=== PATIENT | female | born 1970 | race Caucasian/White ===

== ENCOUNTER → 2017-06-25 | Outpatient (CLI) | payer MEDICARE, OTHER ==
[~2017-06-25] MED LIST: ACET-461 PO; ARIP5TAB13 PO; ARPZ10T; ARPZ10T PO; ASPI-86 PO; CARV6.25; CATHETER FLUSH 10 ML SYR IV PRN; DIPH25TA82 PO; HYDR-3583 PO; IBUP-1773 PO; IOHEXOL 350 MG/ML 100 ML (OMNIPAQUE 350) VIAL IV ONE; LEVO500T69 PO; METR500T PO; MTP25TSR PO; NS 100 ML (IVPB) BAG IV ONE; PROP1TAB77; TRAZ150T42 PO; TRZ50T; VENL75CA PO; VNL75T PO
--- NOTE | 2017-06-25 14:18 | Diagnostic Imaging Report ---
PROCEDURE: CT abdomen and pelvis with contrast. TECHNIQUE: Multiple contiguous axial images were obtained through the abdomen and pelvis after administration of intravenous contrast. INDICATION: Diarrhea. COMPARISON: Comparison made with prior examination from 06/20/2010. FINDINGS: The lung bases are clear. Pacemaker is in place. The liver is normal in size and without focal lesions. Gallbladder is contracted. There is cholelithiasis. There is no biliary ductal dilatation. The spleen is normal. The pancreas and adrenal glands are unremarkable. The kidneys are normal in appearance. The abdominal aorta is nonaneurysmal. The bowel gas pattern is nonspecific. There is no free air. There are postsurgical changes in the left pelvis. There is moderate distention of the bladder. There is no free air. There is no ascites. There are no focal inflammatory changes. IMPRESSION: 1. Contracted gallbladder with cholelithiasis. 2. Moderate distention of the bladder. 3. No other acute abnormality in the abdomen or pelvis. Dictated by: Dictated on workstation # [id number]
== END ==
LOC: RAD 13:20
PROVIDERS: ATTEND Family Medicine
DX: K80.20 Calculus of gallbladder without cholecystitis without obstruction (principal); N32.89 Other specified disorders of bladder
CPT/HCPCS: 74177

== ENCOUNTER 2017-12-10 09:51 | Emergency (ER) | payer MEDICARE, OTHER ==
[~2017-12-10] VITALS: Ht 167.6 cm; Wt 72.6 kg
[~2017-12-10 09:51] MED LIST changes: -CATHETER FLUSH 10 ML SYR IV PRN; -IOHEXOL 350 MG/ML 100 ML (OMNIPAQUE 350) VIAL IV ONE; -NS 100 ML (IVPB) BAG IV ONE
[2017-12-10] MEDS ORDERED: KETOROLAC 30 MG/ML VIAL IM ONE (10:15)
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
--- NOTE | 2017-12-10 11:27 | Diagnostic Imaging Report ---
INDICATION: Fall. Pain. COMPARISON: 06/24/2010 FINDINGS: 2 views of the chest are obtained. Heart size is normal. The pulmonary vessels appear unremarkable. Pacer/AICD device in the left chest is noted and appears unremarkable. There is no pneumothorax, mediastinal widening or pleural fluid. There is minimal linear scarring or atelectasis in the lateral left lung base. Lungs otherwise clear. There appear to be multiple nondisplaced rib fractures involving the lateral right fifth, sixth and possibly seventh ribs. IMPRESSION: Multiple nondisplaced right rib fractures. No acute cardiopulmonary abnormality is suspected. Dictated by: Dictated on workstation # [id number]
[2017-12-10] MEDS ORDERED: ACHD5005 PO (11:59)
[2017-12-10 12:46] VITALS: BP 118/70
== END 2017-12-10 12:46 | disposition home or self-care (01) ==
LOC: EDUNIT# 09:51 → ER 09:53
DX: S22.41XA Multiple fractures of ribs, right side, initial encounter for closed fracture (principal); R40.2142 Coma scale, eyes open, spontaneous, at arrival to emergency department; R40.2252 Coma scale, best verbal response, oriented, at arrival to emergency department; R40.2362 Coma scale, best motor response, obeys commands, at arrival to emergency department; F17.210 Nicotine dependence, cigarettes, uncomplicated; Z88.2 Allergy status to sulfonamides; W01.198A Fall on same level from slipping, tripping and stumbling with subsequent striking against other object, initial encounter
CPT/HCPCS: 71046; 96372; 99284

== ENCOUNTER → 2017-12-31 | Outpatient (CLI) | payer MEDICARE, OTHER ==
[~2017-12-31] MED LIST changes: +ACHD5005 PO
== END ==
LOC: CARD 11:55
PROVIDERS: ATTEND Internal Medicine Cardiovascular Disease
DX: I42.9 Cardiomyopathy, unspecified (principal); Z95.810 Presence of automatic (implantable) cardiac defibrillator
CPT/HCPCS: 93306

== ENCOUNTER 2019-04-21 01:00 | Inpatient (IN) | payer MEDICARE, OTHER ==
[2019-04-21] VITALS (7 sets, daily range): BP systolic 103–130; BP diastolic 57–78
[~2019-04-21] VITALS: Ht 177.8 cm; Wt 65.8 kg
[2019-04-21] MEDS ORDERED: LACTATED RINGERS 1,000 ML IV STA (01:18)
[2019-04-21 01:20] LABS: BASOPHILS % (AUTO) 0 % (0-10); EOSINOPHILS % (AUTO) 0 % (0-10); HEMATOCRIT 43 % (35-52); HEMOGLOBIN 13.8 G/DL (11.5-16.0); LYMPHOCYTES # (AUTO) 0.5 X 10^3 (1.0-4.0); LYMPHOCYTES % (AUTO) 4 % (12-44); MEAN CORPUSCULAR HEMOGLOBIN 29 PG (25-34); MEAN CORPUSCULAR HGB CONC 32 G/DL (32-36); MEAN CORPUSCULAR VOLUME 90 FL (80-99); MEAN PLATELET VOLUME 7.9 FL (7.4-10.4); MONOCYTES # (AUTO) 0.6 X 10^3 (0.0-1.0); MONOCYTES % (AUTO) 4 % (0-12); NEUTROPHILS # (AUTO) 13.1 X 10^3 (1.8-7.8); NEUTROPHILS % (AUTO) 92 % (42-75); PLATELET COUNT 498 10^3/uL (130-400); WHITE BLOOD COUNT 14.2 10^3/uL (4.3-11.0)
[2019-04-21] MEDS ORDERED: ONDANSETRON 4 MG/2 ML (SDV) Z0FRAN IVP ONE (01:30)
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
[2019-04-21 01:40] LABS: ALANINE AMINOTRANSFERASE 15 U/L (0-55); ALKALINE PHOSPHATASE 172 U/L (40-136); AMYLASE 53 U/L (25-125); BAND NEUTROPHILS 21 %; BILIRUBIN,TOTAL 0.2 MG/DL (0.1-1.0); BUN/CREATININE RATIO 18; CALCIUM 10.5 MG/DL (8.5-10.1); CARBON DIOXIDE 25 MMOL/L (21-32); CHLORIDE 97 MMOL/L (98-107); CREATININE SERUM 0.84 MG/DL (0.60-1.30); GFR ESTIMATED > 60; GLUCOSE 158 MG/DL (70-105); LIPASE 32 U/L (8-78); LYMPHOCYTES % (MANUAL) 3 %; MAGNESIUM 1.8 MG/DL (1.6-2.4); MONOCYTES % (MANUAL) 5 %; NEUTROPHILS % (MANUAL) 71 %; POTASSIUM 3.6 MMOL/L (3.6-5.0); RBC MORPH NORMAL; SODIUM 139 MMOL/L (135-145); TOTAL PROTEIN 9.3 GM/DL (6.4-8.2)
[2019-04-21 02:32] LABS: BILIRUBIN,URINE NEGATIVE (NEGATIVE); CLARITY,URINE CLEAR; COLOR,URINE YELLOW; GLUCOSE, URINE (UA) NEGATIVE (NEGATIVE); KETONES,URINE NEGATIVE (NEGATIVE); LEUKOCYTE ESTERASE ,URINE NEGATIVE (NEGATIVE); NITRITE,URINE NEGATIVE (NEGATIVE); PH,URINE 5 (5-9); PROTEIN,URINE 2+ (NEGATIVE); UROBILINOGEN,URINE NORMAL (NORMAL)
[2019-04-21 02:41] LABS: BACTERIA,URINE FEW /HPF
[2019-04-21 02:43] LABS: AMPHETAMINE SCREEN, URINE NEGATIVE (NEGATIVE); BARBITURATE SCREEN URINE NEGATIVE (NEGATIVE); BENZODIAZEPINES SCREEN URINE NEGATIVE (NEGATIVE); CANNABINOID SCREEN, URINE NEGATIVE (NEGATIVE); COCAINE SCREEN URINE NEGATIVE (NEGATIVE); METHADONE STAT NEGATIVE (NEGATIVE); METHAMPHETAMINE SCREEN URINE S NEGATIVE (NEGATIVE); OPIATE SCREEN URINE NEGATIVE (NEGATIVE); OXYCODONE STAT NEGATIVE (NEGATIVE); PROPOXYPHENE STAT NEGATIVE (NEGATIVE); TRICYCLIC ANTIDEPRESSANTS SCRE POSITIVE (NEGATIVE)
[2019-04-21] MEDS ORDERED: D5 1/2 NS W/KCL 20 MEQ/L 1,000 ML IV ONE (04:34)
[2019-04-21] MEDS ORDERED: ONDANSETRON 4 MG/2 ML (SDV) Z0FRAN IV PRN (04:45)
[2019-04-21] MEDS: D5 1/2 NS W/KCL 20 MEQ/L 1,000 ML IV SCH ×3 (05:00→18:32)
--- NOTE | 2019-04-21 05:13 | NUR ---
LAURY PRABHAKAR admitted to room 418-1, with an admitting diagnosis of SMALL BOWEL OBSTRUCTION, CHOLELITHIASIS, on 04/21/19 from [place] via [facility], accompanied by STAFF AND SIGNIFICANT OTHER.LAURY PRABHAKAR introduced to surroundings, call light, bed controls, phone, TV, temperature control, lights, meal times, smoking policy, visitor policy, side rail policy, bathrooms and showers. Patient Rights given to patient in the handbook. LAURY PRABHAKAR verbalizes understanding that [facility] is not responsible for the loss or damage to any personal effects or valuables that are kept in the patients posession during their hospitalization
[2019-04-21 06:36] LABS: BASOPHILS % (AUTO) 0 % (0-10); EOSINOPHILS # (AUTO) 0.1 10^3/uL (0.0-0.3); EOSINOPHILS % (AUTO) 1 % (0-10); HEMATOCRIT 36 % (35-52); HEMOGLOBIN 11.8 G/DL (11.5-16.0); LYMPHOCYTES # (AUTO) 0.3 X 10^3 (1.0-4.0); LYMPHOCYTES % (AUTO) 3 % (12-44); MEAN CORPUSCULAR HEMOGLOBIN 29 PG (25-34); MEAN CORPUSCULAR HGB CONC 33 G/DL (32-36); MEAN CORPUSCULAR VOLUME 90 FL (80-99); MEAN PLATELET VOLUME 8.2 FL (7.4-10.4); MONOCYTES % (AUTO) 8 % (0-12); NEUTROPHILS # (AUTO) 11.9 X 10^3 (1.8-7.8); NEUTROPHILS % (AUTO) 89 % (42-75); PLATELET COUNT 410 10^3/uL (130-400); RED CELL DISTRIBUTION WIDTH 14.1 % (10.0-14.5); WHITE BLOOD COUNT 13.3 10^3/uL (4.3-11.0)
[2019-04-21 06:58] LABS: ALANINE AMINOTRANSFERASE 13 U/L (0-55); ALKALINE PHOSPHATASE 117 U/L (40-136); BILIRUBIN,TOTAL 0.2 MG/DL (0.1-1.0); BUN/CREATININE RATIO 19; CARBON DIOXIDE 24 MMOL/L (21-32); CHLORIDE 102 MMOL/L (98-107); CREATININE SERUM 0.72 MG/DL (0.60-1.30); GFR ESTIMATED > 60; GLUCOSE 161 MG/DL (70-105); POTASSIUM 3.8 MMOL/L (3.6-5.0); SODIUM 139 MMOL/L (135-145); TOTAL PROTEIN 7.1 GM/DL (6.4-8.2)
--- NOTE | 2019-04-21 07:08 | Diagnostic Imaging Report ---
PROCEDURE: CT abdomen and pelvis with contrast. TECHNIQUE: Multiple contiguous axial images were obtained through the abdomen and pelvis after administration of intravenous contrast. Auto Exposure Controls were utilized during the CT exam to meet ALARA standards for radiation dose reduction. INDICATION: Abdominal pain. Compared 06/25/2017. FINDINGS: There is abnormal fluid-filled dilatation of the proximal third of the small bowel with scattered air-fluid levels. Small-bowel caliber is distended up to 3.7 cm with mid abdominal transition. No etiology of the obstruction found. There is no evidence for perforation. No pneumatosis. There is fluid within the colonic lumen. Colon is nondistended. There is formed stool at the rectosigmoid. There is trace pelvic free fluid without loculation. There is no pneumatosis or free air. There are gallstones without biliary dilatation. Spleen, adrenals, pancreas unremarkable. The unobstructed kidneys appeared normal. There are postoperative changes to the left hemipelvis with subacute but unhealed fractures of the left inferior and superior rami. Spine unremarkable. The visualized lung bases nonacute. IMPRESSION: 1. Etiology indeterminate small bowel obstruction, transition in the mid abdomen without perforation. Small pelvic free fluid without loculation. 2. Postsurgical left hemipelvis with subacute but unhealed left superior and inferior pubic rami fractures. 3. Cholelithiasis without biliary dilatation. Dictated by: Dictated on workstation # [id number]
--- NOTE | 2019-04-21 07:08 | Diagnostic Imaging Report ---
INDICATION: OG placement FINDINGS: OG catheter tip is in the stomach. ICD unremarkable. The lungs clear. No failure, effusion or pneumothorax. IMPRESSION: OG catheter placed in the stomach Dictated by: Dictated on workstation # [id number]
--- NOTE | 2019-04-21 07:26 | Diagnostic Imaging Report ---
Indication: Shortness of air. Study compared with exam 12/10/2017. The lungs are clear. The heart size and vascularity normal. There is no effusion or pneumothorax. Abdominal radiograph showed postoperative changes to the left hemipelvis with the subacute unhealed fractures of the left superior and inferior ramus. There are some air-fluid levels within distended mid abdominal small bowel. No free gas. Impression: Small bowel dilatation and air-fluid levels, obstruction not excluded. Postoperative left pelvis with treated and untreated fractures appearing nonacute. Negative chest. Dictated by: Dictated on workstation # [id number]
[2019-04-21] MEDS: PANTOPRAZOLE 40 MG (PROTONIX) VIAL IV SCH (08:52)
[2019-04-21] MEDS ORDERED: VENL75CA93 PO (09:08)
[2019-04-21] MEDS ORDERED: METO-387 PO (09:08)
[2019-04-21] MEDS ORDERED: ACET-93 PO (09:08)
[2019-04-21] MEDS ORDERED: IBUP-2055 PO (09:08)
[2019-04-21] MEDS ORDERED: ARIP5TAB20 PO (09:08)
[2019-04-21] MEDS ORDERED: TRAZ150T72 PO (09:08)
--- NOTE | 2019-04-21 09:09 | NUR ---
SPOKE WITH PT (HER FAMILY WAS IN THE ROOM AND HELPS TAKE CARE OF HER MEDS) WELL GOING THRU THE EXT MED HIST TO COMPLETE THE MED REC. FAMILY WAS ABLE TO VERIFY ALL HER MEDS WELL HOW SHE TAKES THEM. LORATADINE 10MG: FAMILY SAYS PT IS NO LONGER TAKING THIS EVEN THOUGH THE EXT MED HISTORY SHOWS IT HAS BEEN PICKED UP OVER THE LAST FEW MONTHS. OTC MEDS: ACETAMINOPHEN 500M Q 6 H PRN IBUPROFEN 200M TABS Q 6 H PRN
--- NOTE | 2019-04-21 12:55 | NUR ---
Initial visit with the pt's Aunt, Uncle and significant other of 20+ years, . The pt's Aunt and Uncle describe themselves as primary care givers throughout the pt's life. They shared she also struggles with schizophrenia and describe difficulty finding steady employment. They further shared that they live in [place], and have experienced increased limitations due to health and aging. They have recently reached out to their daughter to help provided emotional and physical support to the pt, and state they are grateful for the assistance and understanding their daughter provides. said he was feeling nervous about the pt's condition. I offered active listening, and supportive, non-judgmental presence. Family states the pt has no spiritual affiliation.
[2019-04-21] MEDS: fentaNYL INJECTION 100 MCG/2 ML AMP IV PRN (14:55)
[2019-04-21] MEDS: LORazepam INJ 2 MG/ML (ATIVAN) VIAL IV PRN (14:55)
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
[2019-04-21] MEDS: POLYETHYLENE GLYCOL 17 GM (MIRALAX) PACK NG SCH (20:55)
[2019-04-22] MEDS: fentaNYL INJECTION 100 MCG/2 ML AMP IV PRN ×4 (01:17→21:43)
[2019-04-22] MEDS: D5 1/2 NS W/KCL 20 MEQ/L 1,000 ML IV SCH ×3 (01:20→16:30)
[2019-04-22] MEDS: LORazepam INJ 2 MG/ML (ATIVAN) VIAL IV PRN ×2 (03:42→18:05)
[2019-04-22 04:25] VITALS: BP 155/88
[2019-04-22 06:52] LABS: HEMOGLOBIN 10.6 G/DL (11.5-16.0); MEAN PLATELET VOLUME 7.9 FL (7.4-10.4); RED CELL DISTRIBUTION WIDTH 14.5 % (10.0-14.5); WHITE BLOOD COUNT 10.6 10^3/uL (4.3-11.0)
[2019-04-22 06:59] LABS: BUN/CREATININE RATIO 8; CALCIUM 8.4 MG/DL (8.5-10.1); CARBON DIOXIDE 24 MMOL/L (21-32); CHLORIDE 104 MMOL/L (98-107); CREATININE SERUM 0.62 MG/DL (0.60-1.30); GFR ESTIMATED > 60; GLUCOSE 122 MG/DL (70-105); POTASSIUM 3.9 MMOL/L (3.6-5.0); SODIUM 136 MMOL/L (135-145)
[2019-04-22 07:54] VITALS: BP 169/91
[2019-04-22] MEDS: PANTOPRAZOLE 40 MG (PROTONIX) VIAL IV SCH (09:38)
[2019-04-22] MEDS: meTOprolol 5 MG/5 ML (LOPRESSOR) VIAL IV SCH ×3 (09:39→21:42)
[2019-04-22] MEDS ORDERED: IOHEXOL 350 MG/ML 100 ML (OMNIPAQUE 350) VIAL IV ONE (10:30)
[2019-04-22] MEDS ORDERED: NS 100 ML (IVPB) BAG IV ONE (10:30)
[2019-04-22] MEDS ORDERED: HOLD METFORMIN - RECEIVED CONTRAST 20 ML VIAL IV SCH (10:30)
[2019-04-22 11:56] VITALS: BP 162/83
[2019-04-22] MEDS ORDERED: meTOprolol 5 MG/5 ML (LOPRESSOR) VIAL IV NR (12:30)
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
--- NOTE | 2019-04-22 14:55 | Diagnostic Imaging Report ---
INDICATION: Bowel obstruction. COMPARISON: 04/21/2019. FINDINGS: Single frontal radiographic view of the abdomen was obtained and demonstrates nondistended loops of small bowel. There is no large collection of free intraperitoneal air. Postsurgical changes in the left pelvis is noted. Old fractures are also present. No unexpected extraosseous ossifications or radiopaque foreign bodies are seen. IMPRESSION: 1. Nonobstructive small bowel gas pattern. Dictated by: Dictated on workstation # [id number]
[2019-04-22 16:41] VITALS: BP 148/91
--- NOTE | 2019-04-22 17:52 | Progress Note ---
Subjective Date Seen by a Provider: Apr 22, 2019 Time Seen by a Provider: 17:30 Subjective/Events-last exam Patient seen with Dr. Wilcox. Patient reports doing ok. Denies any nausea or abdominal pain. Reports passing flatus but no BM. No fever/chills. Objective Exam Vital Signs Date Time Temp Pulse Resp B/P (MAP) Pulse Ox O2 Delivery O2 Flow Rate FiO2 04/22/19 16:41 37.0 82 16 148/91 (110) 94 Room Air 04/22/19 11:56 37.1 87 16 162/83 (109) 96 Room Air 04/22/19 08:00 Room Air 04/22/19 07:54 37.0 93 14 169/91 (117) 98 Room Air 04/22/19 04:25 36.6 82 18 155/88 (110) 96 Room Air 04/21/19 23:57 36.7 96 18 130/78 (95) 94 Room Air 04/21/19 20:00 Room Air 04/21/19 19:58 37.2 92 20 124/77 (93) 93 Room Air I & O 04/22/19 07:00 Intake Total 1000 ml Output Total 1265 ml Balance -265 ml Capillary Refill : Less Than 3 Seconds General Appearance: No Apparent Distress, WD/WN Neck: Normal Inspection, Supple Respiratory: Normal Breath Sounds, No Accessory Muscle Use, No Respiratory Distress Cardiovascular: Regular Rate, Rhythm, No Murmur Gastrointestinal: normal bowel sounds, non tender, soft Extremity: Normal Capillary Refill, Normal Inspection Neurologic/Psychiatric: Alert, Oriented x3 Skin: Normal Color, Warm/Dry Results Lab Laboratory Tests 04/22/19 06:28: White Blood Count 10.6, Red Blood Count 3.67L, Hemoglobin 10.6L, Hematocrit 34L, Mean Corpuscular Volume 92, Mean Corpuscular Hemoglobin 29, Mean Corpuscular Hemoglobin Concent 31L, Red Cell Distribution Width 14.5, Platelet Count 393, Mean Platelet Volume 7.9, Sodium Level 136, Potassium Level 3.9, Chloride Level 104, Carbon Dioxide Level 24, Anion Gap 8, Blood Urea Nitrogen 5L, Creatinine 0.62, Estimat Glomerular Filtration Rate > 60, BUN/Creatinine Ratio 8, Glucose Level 122H, Calcium Level 8.4L Assessment/Plan Assessment/Plan Assess & Plan/Chief Complaint A 48-year-old female with ileus versus a partial small-bowel obstruction, and chronic calculous cholecystitis. Continue with IV fluids, pain and nausea medications. Will DC NG. Start clear liquid diet. Encourage ambulation Schedule for diagnostic laparoscopy, possible lysis of adhesions, and laparoscopic cholecystectomy for 04/24. Clinical Quality Measures DVT/VTE Risk/Contraindication: Risk Factor Score Per Nursin RFS Level Per Nursing on Admit: 4+=Very High LINDA GAYTAN [facility] Apr 22, 2019 17:52
[2019-04-22 19:45] VITALS: BP 146/82
[2019-04-22] MEDS: POLYETHYLENE GLYCOL 17 GM (MIRALAX) PACK NG SCH (21:44)
[2019-04-23 00:38] VITALS: BP 157/83
[2019-04-23 04:12] VITALS: BP 149/81
[2019-04-23] MEDS: LORazepam INJ 2 MG/ML (ATIVAN) VIAL IV PRN ×2 (04:45→18:00)
[2019-04-23] MEDS: meTOprolol 5 MG/5 ML (LOPRESSOR) VIAL IV SCH (04:48)
[2019-04-23] MEDS: D5 1/2 NS W/KCL 20 MEQ/L 1,000 ML IV SCH ×3 (05:00→21:09)
[2019-04-23 06:54] LABS: BASOPHILS % (AUTO) 0 % (0-10); EOSINOPHILS # (AUTO) 0.1 10^3/uL (0.0-0.3); EOSINOPHILS % (AUTO) 1 % (0-10); HEMATOCRIT 31 % (35-52); HEMOGLOBIN 9.9 G/DL (11.5-16.0); LYMPHOCYTES # (AUTO) 1.7 X 10^3 (1.0-4.0); LYMPHOCYTES % (AUTO) 17 % (12-44); MEAN CORPUSCULAR HEMOGLOBIN 29 PG (25-34); MEAN CORPUSCULAR HGB CONC 32 G/DL (32-36); MEAN CORPUSCULAR VOLUME 91 FL (80-99); MEAN PLATELET VOLUME 8.2 FL (7.4-10.4); MONOCYTES # (AUTO) 0.9 X 10^3 (0.0-1.0); MONOCYTES % (AUTO) 9 % (0-12); NEUTROPHILS # (AUTO) 7.4 X 10^3 (1.8-7.8); NEUTROPHILS % (AUTO) 73 % (42-75); PLATELET COUNT 377 10^3/uL (130-400); RED CELL DISTRIBUTION WIDTH 13.8 % (10.0-14.5); WHITE BLOOD COUNT 10.1 10^3/uL (4.3-11.0)
[2019-04-23 07:16] LABS: BUN/CREATININE RATIO 10; CALCIUM 8.8 MG/DL (8.5-10.1); CARBON DIOXIDE 26 MMOL/L (21-32); CHLORIDE 102 MMOL/L (98-107); CREATININE SERUM 0.59 MG/DL (0.60-1.30); GFR ESTIMATED > 60; GLUCOSE 112 MG/DL (70-105); POTASSIUM 3.7 MMOL/L (3.6-5.0); SODIUM 138 MMOL/L (135-145)
--- NOTE | 2019-04-23 07:30 | Progress Note ---
Subjective Time Seen by a Provider: 07:27 Subjective/Events-last exam Patient states she's feeling better. Patient passing gas. Patient taking food and fluids. Patient to have gallbladder out tomorrow. Objective Exam Vital Signs Date Time Temp Pulse Resp B/P (MAP) Pulse Ox O2 Delivery O2 Flow Rate FiO2 04/23/19 04:12 37.2 88 20 149/81 (103) 95 Room Air 04/23/19 00:38 37.2 87 24 157/83 (107) 97 Room Air 04/22/19 20:00 Room Air 04/22/19 19:45 37.0 77 16 146/82 (103) 95 Room Air 04/22/19 16:41 37.0 82 16 148/91 (110) 94 Room Air 04/22/19 11:56 37.1 87 16 162/83 (109) 96 Room Air 04/22/19 08:00 Room Air 04/22/19 07:54 37.0 93 14 169/91 (117) 98 Room Air I & O 04/23/19 07:00 Intake Total 100 ml Output Total 2550 ml Balance -2450 ml Capillary Refill : Less Than 3 Seconds General Appearance: No Apparent Distress, WD/WN HEENT: Normal ENT Inspection Neck: Full Range of Motion, Normal Inspection Respiratory: Lungs Clear, Normal Breath Sounds, No Accessory Muscle Use, No Respiratory Distress Cardiovascular: Regular Rate, Rhythm, No Murmur Gastrointestinal: normal bowel sounds, non tender, soft Results Lab Laboratory Tests 04/23/19 06:07 Laboratory Tests 04/23/19 06:07: White Blood Count 10.1, Red Blood Count 3.46L, Hemoglobin 9.9L, Hematocrit 31L, Mean Corpuscular Volume 91, Mean Corpuscular Hemoglobin 29, Mean Corpuscular Hemoglobin Concent 32, Red Cell Distribution Width 13.8, Platelet Count 377, Mean Platelet Volume 8.2, Neutrophils (%) (Auto) 73, Lymphocytes (%) (Auto) 17, Monocytes (%) (Auto) 9, Eosinophils (%) (Auto) 1, Basophils (%) (Auto) 0, Berto trophils # (Auto) 7.4, Lymphocytes # (Auto) 1.7, Monocytes # (Auto) 0.9, Eosinophils # (Auto) 0.1, Basophils # (Auto) 0.0, Sodium Level 138, Potassium Level 3.7, Chloride Level 102, Carbon Dioxide Level 26, Anion Gap 10, Blood Urea Nitrogen 6L, Creatinine 0.59L, Estimat Glomerular Filtration Rate > 60, BUN/Creatinine Ratio 10, Glucose Level 112H, Calcium Level 8.8 Assessment/Plan Assessment/Plan Assess & Plan/Chief Complaint Partial small bowel obstruction better. Cholelithiasis. Hypertension. MR. Patient doing better and have surgery tomorrow Clinical Quality Measures DVT/VTE Risk/Contraindication: Risk Factor Score Per Nursin RFS Level Per Nursing on Admit: 4+=Very High BARBARA JANE DO Apr 23, 2019 07:30
[2019-04-23 08:00] VITALS: BP 135/85
[2019-04-23] MEDS: PANTOPRAZOLE 40 MG (PROTONIX) VIAL IV SCH (09:44)
--- NOTE | 2019-04-23 11:13 | Diagnostic Imaging Report ---
INDICATION: Abdominal pain. TECHNIQUE: 2 supine view of the abdomen 9:34 AM CORRELATION STUDY: 04/22/2019 FINDINGS: The tip of the previously identified gastric tube is not visualized on current study. There is gas within the colon including gas and stool to the rectum. Definitive disproportionate small bowel gas to suggest a high degree obstruction does not appear to be suggested. Mild leftward curvature and/or rotation lumbar spine. Extensive external fixation hardware over the left hemipelvis with additional ununited fractures of the left superior-inferior pubic rami. Single screw over the intertrochanteric region of the proximal left femur. IMPRESSION: 1. Unremarkable, nonobstructive appearing bowel gas pattern. Dictated by: Dictated on workstation # [id number]
--- NOTE | 2019-04-23 11:52 | NUR ---
YOSEF ECHAVARRIA CALLED AND THIS RN GOT VERBAL CONSENT WITH YENIFER BACON FOR GALLBLADDER SURG-- THIS RN ALSO ASKED HER ABOUT ANY REACTION TO ANESTHESIA - SHE VOICED YES SHE IS VERY NAUSEATED AND AT TIMES VOMITS -- THIS RN ADVISED ANESTHESIA OF THIS
[2019-04-23 12:00] VITALS: BP 149/68
--- NOTE | 2019-04-23 12:45 | Progress Note-Pre Operative ---
Pre-Operative Progress Note H&P Reviewed The H&P was reviewed, patient examined and no changes noted. Date Seen by Provider: Apr 23, 2019 Time Seen by Provider: 12:40 Date H&P Reviewed: Apr 23, 2019 Time H&P Reviewed: 12:40 Pre-Operative Diagnosis: nausea/vomiting with previous PSBO and calculous cholecystitis DALILA NERGO MD Apr 23, 2019 12:45
--- NOTE | 2019-04-23 13:10 | NUR ---
THIS RN CALLED PT'S AUNT AND LEFT MESSAGE FOR TIME OF SURG TOMORROW -- 1200 --
[2019-04-23] MEDS ORDERED: ZOLPIDEM 5 MG (AMBIEN) TAB PO PRN (14:15)
--- NOTE | 2019-04-23 14:28 | Progress Note ---
Subjective Date Seen by a Provider: Apr 23, 2019 Time Seen by a Provider: 14:00 Subjective/Events-last exam doing better. tolerating clears. no nausea/vomiting. has had BM on this admission. Objective Exam Vital Signs Date Time Temp Pulse Resp B/P (MAP) Pulse Ox O2 Delivery O2 Flow Rate FiO2 04/23/19 12:00 36.0 81 20 149/68 (95) 93 Room Air 04/23/19 08:00 36.7 89 20 135/85 (102) 96 Room Air 04/23/19 08:00 Room Air 04/23/19 04:12 37.2 88 20 149/81 (103) 95 Room Air 04/23/19 00:38 37.2 87 24 157/83 (107) 97 Room Air 04/22/19 20:00 Room Air 04/22/19 19:45 37.0 77 16 146/82 (103) 95 Room Air 04/22/19 16:41 37.0 82 16 148/91 (110) 94 Room Air I & O 04/23/19 07:00 Intake Total 100 ml Output Total 2550 ml Balance -2450 ml Capillary Refill : Less Than 3 Seconds General Appearance: No Apparent Distress HEENT: PERRL/EOMI Neck: Full Range of Motion Respiratory: Chest Non Tender, Lungs Clear, Normal Breath Sounds Cardiovascular: Regular Rate, Rhythm Gastrointestinal: soft, tenderness, other (no abd distention) Extremity: Normal Capillary Refill Neurologic/Psychiatric: Alert, Oriented x3 Skin: Normal Color Lymphatic: No Adenopathy Results Lab Laboratory Tests 04/23/19 06:07: White Blood Count 10.1, Red Blood Count 3.46L, Hemoglobin 9.9L, Hematocrit 31L, Mean Corpuscular Volume 91, Mean Corpuscular Hemoglobin 29, Mean Corpuscular Hemoglobin Concent 32, Red Cell Distribution Width 13.8, Platelet Count 377, Mean Platelet Volume 8.2, Neutrophils (%) (Auto) 73, Lymphocytes (%) (Auto) 17, Monocytes (%) (Auto) 9, Eosinophils (%) (Auto) 1, Basophils (%) (Auto) 0, Neutrophils # (Auto) 7.4, Lymphocytes # (Auto) 1.7, Monocytes # (Auto) 0.9, Eosinophils # (Auto) 0.1, Basophils # (Auto) 0.0, Sodium Level 138, Potassium Level 3.7, Chloride Level 102, Carbon Dioxide Level 26, Anion Gap 10, Blood Urea Nitrogen 6L, Creatinine 0.59L, Estimat Glomerular Filtration Rate > 60, BUN/Creatinine Ratio 10, Glucose Level 112H, Calcium Level 8.8 Assessment/Plan Assessment/Plan Assess & Plan/Chief Complaint PSBO and symptomatic chronic calculous cholecystitis. resolution PSBO. nausea/vomiting likely multifactorial. will plan for diagnostic laparoscopy, possible RUIZ and cholecystectomy. Clinical Quality Measures DVT/VTE Risk/Contraindication: Risk Factor Score Per Nursin RFS Level Per Nursing on Admit: 4+=Very High DALILA NEGRO MD Apr 23, 2019 14:28
[2019-04-23] MEDS: fentaNYL INJECTION 100 MCG/2 ML AMP IV PRN ×2 (15:27→21:16)
[2019-04-23 16:50] VITALS: BP 138/76
[2019-04-23 20:40] VITALS: BP 171/80
[2019-04-23] MEDS: VENlafaxine XR 75 MG (EFFEXOR XR) CAP PO SCH (21:10)
[2019-04-23] MEDS: POLYETHYLENE GLYCOL 17 GM (MIRALAX) PACK NG SCH (21:10)
[2019-04-24] VITALS (12 sets, daily range): BP systolic 118–187; BP diastolic 65–99
[2019-04-24] MEDS ORDERED: meTOprolol 5 MG/5 ML (LOPRESSOR) VIAL IV ONE ×2 (00:15→03:30)
[2019-04-24] MEDS: LORazepam INJ 2 MG/ML (ATIVAN) VIAL IV PRN ×4 (01:52→20:37)
[2019-04-24 05:33] LABS: HEMOGLOBIN 10.9 G/DL (11.5-16.0); MEAN PLATELET VOLUME 7.9 FL (7.4-10.4); RED CELL DISTRIBUTION WIDTH 13.6 % (10.0-14.5); WHITE BLOOD COUNT 9.7 10^3/uL (4.3-11.0)
[2019-04-24 06:00] LABS: BUN/CREATININE RATIO 11; CALCIUM 9.3 MG/DL (8.5-10.1); CARBON DIOXIDE 26 MMOL/L (21-32); CHLORIDE 101 MMOL/L (98-107); CREATININE SERUM 0.62 MG/DL (0.60-1.30); GFR ESTIMATED > 60; GLUCOSE 115 MG/DL (70-105); POTASSIUM 3.8 MMOL/L (3.6-5.0); SODIUM 137 MMOL/L (135-145)
--- NOTE | 2019-04-24 07:26 | Progress Note ---
Subjective Time Seen by a Provider: 07:22 Subjective/Events-last exam Patient resting comfortably this morning. Patient to have gallbladder surgery this a.m. Abdomen is soft. Blood pressure better this a.m. Objective Exam Vital Signs Date Time Temp Pulse Resp B/P (MAP) Pulse Ox O2 Delivery O2 Flow Rate FiO2 04/24/19 04:15 36.1 76 20 142/80 (100) 94 Room Air 04/24/19 00:00 36.9 80 20 187/95 (125) 96 Room Air 04/23/19 20:40 37.2 83 18 171/80 (110) 92 Room Air 04/23/19 20:00 Room Air 04/23/19 16:50 37.1 83 18 138/76 (96) 94 Room Air 04/23/19 16:00 36.0 04/23/19 15:27 36.0 04/23/19 12:00 36.0 81 20 149/68 (95) 93 Room Air 04/23/19 08:00 36.7 89 20 135/85 (102) 96 Room Air 04/23/19 08:00 Room Air I & O 04/24/19 07:00 Intake Total 1100 ml Output Total 1600 ml Balance -500 ml Capillary Refill : Less Than 3 Seconds General Appearance: No Apparent Distress, WD/WN HEENT: Normal ENT Inspection Neck: Normal Inspection Respiratory: Lungs Clear, No Accessory Muscle Use, No Respiratory Distress Cardiovascular: Regular Rate, Rhythm, No Murmur Gastrointestinal: non tender, soft Results Lab Laboratory Tests 04/24/19 05:15 Laboratory Tests 04/24/19 05:15: White Blood Count 9.7, Red Blood Count 3.79L, Hemoglobin 10.9L, Hematocrit 34L, Mean Corpuscular Volume 89, Mean Corpuscular Hemoglobin 29, Mean Corpuscular Hemoglobin Concent 32, Red Cell Distribution Width 13.6, Platelet Count 472H, Mean Platelet Volume 7.9, Sodium Level 137, Potassium Level 3.8, Chloride Level 101, Carbon Dioxide Level 26, Anion Gap 10, Blood Urea Nitrogen 7, Creatinine 0.62, Estimat Glomerular Filtration Rate > 60, BUN/Creatinine Ratio 11, Glucose Level 115H, Calcium Level 9.3 Assessment/Plan Assessment/Plan Assess & Plan/Chief Complaint Partial small bowel obstruction better. Cholelithiasis. Hypertension. MR. Patient doing better and have surgery tomorrow. . 04/24/19. Partial small bowel obstruction better. Cholelithiasis. Hypertension. MR. Patient to have gallbladder surgery this a.m. Clinical Quality Measures DVT/VTE Risk/Contraindication: Risk Factor Score Per Nursin RFS Level Per Nursing on Admit: 4+=Very High BARBARA JANE DO Apr 24, 2019 07:26
[2019-04-24] MEDS ORDERED: LACTATED RINGERS 1,000 ML IV PRN (07:47)
[2019-04-24] MEDS: PANTOPRAZOLE 40 MG (PROTONIX) VIAL IV SCH (09:20)
[2019-04-24] MEDS: D5 1/2 NS W/KCL 20 MEQ/L 1,000 ML IV SCH (09:20)
--- NOTE | 2019-04-24 09:24 | NUR ---
metoprolol XL [address] Wilcox for b/p of 176/99 with a pulse of 87
[2019-04-24] MEDS ORDERED: ONDANSETRON 4 MG/2 ML (SDV) Z0FRAN ONE (13:23)
[2019-04-24] MEDS ORDERED: DEXAMETHASONE 10 MG/ML (DECADRON) 1 ML VIAL ONE (13:23)
[2019-04-24] MEDS ORDERED: MIDAZOLAM 2 MG/2 ML (VERSED) VIAL ONE (13:23)
[2019-04-24] MEDS ORDERED: proPOfol 200 MG/20 ML (DIPRIVAN) VIAL IV ONE (13:23)
[2019-04-24] MEDS ORDERED: LIDOCAINE PF 2% 5 ML (XYLOCAINE) VIAL ONE (13:23)
[2019-04-24] MEDS ORDERED: fentaNYL INJECTION 100 MCG/2 ML AMP ONE (13:23)
[2019-04-24] MEDS ORDERED: SEVOFLURANE (ULTANE) 15 ML INHAL SOLN ONE ×5 (13:23→19:06)
[2019-04-24] MEDS ORDERED: GLYCOPYRROLATE 0.2 MG/ML (ROBINUL) 2 ML VIAL ONE (13:25)
[2019-04-24] MEDS ORDERED: NEOSTIGMINE 3 MG/3 ML VIAL ONE (13:25)
[2019-04-24] MEDS ORDERED: BUP/EPI 0.25% 1:200,000 (MARCAINE) 10 ML VIAL IJ ONE (13:42)
[2019-04-24] MEDS ORDERED: morphine INJ 10 MG/ML 1ML (SYR OR VIAL) ONE (15:11)
--- NOTE | 2019-04-24 16:55 | NUR ---
PATIENT TO SURGERY AT THIS TIME, VIA BED. THIS RN WILL ASSUME CARE OF THIS PATIENT WHEN SHE RETURNS FROM HER PROCEDURE.
[2019-04-24] MEDS: LACTATED RINGERS 1,000 ML IV PRN ×2 (17:08→18:24)
--- NOTE | 2019-04-24 17:10 | Progress Note-Pre Operative ---
Pre-Operative Progress Note H&P Reviewed The H&P was reviewed, patient examined and no changes noted. Date Seen by Provider: Apr 24, 2019 Time Seen by Provider: 17:05 Date H&P Reviewed: Apr 24, 2019 Time H&P Reviewed: 17:00 Pre-Operative Diagnosis: nausea/vomiting with previous PSBO and chronic calculous cholecystitis LINDA GAYTAN APRN Apr 24, 2019 17:10
[2019-04-24] MEDS ORDERED: ceFAZolin INJECTION 1,000 MG ONE (17:13)
[2019-04-24] MEDS ORDERED: ceFAZolin INJECTION 1,000 MG in WATER (STERILE) FOR INJECTION 10 ML IV ONE (17:30)
[2019-04-24] MEDS ORDERED: morphine INJ 10 MG/ML 1ML (SYR OR VIAL) IVP ONE (19:00)
[2019-04-24] MEDS ORDERED: fentaNYL INJECTION 100 MCG/2 ML AMP IVP ONE (19:00)
[2019-04-24] MEDS ORDERED: ONDANSETRON 4 MG/2 ML (SDV) Z0FRAN IVP PRN (19:00)
--- NOTE | 2019-04-24 19:00 | Progress Note-Post Operative ---
Post-Operative Progess Note Surgeon (s)/Network Systems Operator (s) Surgeon DALILA NEGRO MD Network Systems Operator: chencho aguilar [employer] WORKER Pre-Operative Diagnosis nausea/vomiting with previous PSBO and chronic calculous cholecystitis Post-Operative Diagnosis extensive intraabdominal adhesions, chronic calculous cholecystitis. Procedure & Operative Findings Date of Procedure 04/24/19 Procedure Performed/Findings diagnostic laparoscopy. lysis of adhesions(90min). laparoscopic cholecystectomy. Anesthesia Type get Estimated Blood Loss Estimated blood loss (mL): minimal Specimens/Packing Specimens Removed gallbladder DALILA NEGRO MD Apr 24, 2019 19:00
[2019-04-24] MEDS ORDERED: HYDR-34 PO (19:01)
--- NOTE | 2019-04-24 19:02 | Discharge Inst-Surgical ---
D/C Lap Instructions-MARKY New, Converted, or Re-Newed RX: RX on Chart Follow Up Appt in 2 weeks Activity as tolerated No driving for 24 hours No driving while on pain medications Incentive Spirometry use every 2 hours while awake Regular Diet Symptoms to Report: Fever over 101 degree F, Nausea/Vomiting Infection Signs and Symptoms to report: Increased redness, Foul odor of wound, Increased drainage Bathing instructions: May shower Operative Area Clean/Dry; Keep incision clean/dry If any problems/questions: Contact your physician or go to Emergency Room DALILA NEGRO MD Apr 24, 2019 19:02
--- NOTE | 2019-04-24 22:03 | NUR ---
AT THIS TIME PT IS RESTING IN BED QUIETLY RETURNED FROM SURGERY AT 2044 Addendum: 04/24/19 at 2204 by WOODY PEÑA RN Amended: Links added.
[2019-04-24] MEDS: POLYETHYLENE GLYCOL 17 GM (MIRALAX) PACK NG SCH (22:13)
[2019-04-24] MEDS: VENlafaxine XR 75 MG (EFFEXOR XR) CAP PO SCH (22:14)
[2019-04-25 00:06] VITALS: BP 134/70
[2019-04-25 04:00] VITALS: BP 152/79
--- NOTE | 2019-04-25 04:26 | NUR ---
pt has rested well this shift. after returning from surgery pt was restless and aggitated. ativan given as ordered. pt has been turned and repositioned iv site patent o2 2l per nc amaro patent draining cl yellow urine scds in place. pt does awaken easily
[2019-04-25] MEDS: D5 1/2 NS W/KCL 20 MEQ/L 1,000 ML IV SCH (04:28)
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
--- NOTE | 2019-04-25 06:41 | NUR ---
prem dcd at this time per dr manuela vazquez
[2019-04-25 07:45] VITALS: BP 143/69
--- NOTE | 2019-04-25 07:56 | Progress Note ---
Subjective Time Seen by a Provider: 07:53 Subjective/Events-last exam Patient resting comfortably. Patient feeling good. Patient afebrile. Patient not hurting. Abdomen soft. Okay with me if okay with surgeon for discharge today. 2 office next at 2 p.m. Objective Exam Vital Signs Date Time Temp Pulse Resp B/P (MAP) Pulse Ox O2 Delivery O2 Flow Rate FiO2 04/25/19 04:00 35.9 84 20 152/79 (103) 94 Nasal Cannula 2.00 04/25/19 00:06 36.0 86 16 134/70 (91) 93 04/24/19 20:45 93 Nasal Cannula 3.00 04/24/19 19:56 36.7 84 18 130/68 (88) 89 04/24/19 19:45 Nasal Cannula 3 04/24/19 19:30 36.4 16 125/75 (92) 93 Nasal Cannula 3 04/24/19 19:25 OxyMask 3 04/24/19 19:20 20 135/72 (93) 93 OxyMask 3 04/24/19 19:10 OxyMask 10 04/24/19 19:10 20 138/75 (96) 94 OxyMask 10 04/24/19 19:00 24 118/71 (87) 96 OxyMask 10 04/24/19 18:55 OxyMask 10 04/24/19 18:50 20 126/69 (88) 93 OxyMask 10 04/24/19 18:39 37 20 121/65 (83) 94 OxyMask 10 04/24/19 18:39 OxyMask 10 04/24/19 15:34 36.8 74 14 158/89 (112) 93 Room Air 04/24/19 12:45 36.4 76 20 163/94 (117) 96 Room Air 04/24/19 08:00 94 Room Air 04/24/19 08:00 36.2 87 18 176/99 (124) 95 Room Air I & O 04/25/19 07:00 Intake Total 2060 ml Output Total 2075 ml Balance -15 ml Capillary Refill : Less Than 3 Seconds General Appearance: No Apparent Distress, WD/WN HEENT: Normal ENT Inspection Neck: Full Range of Motion, Normal Inspection Respiratory: Lungs Clear, Normal Breath Sounds, No Accessory Muscle Use, No Respiratory Distress Cardiovascular: Regular Rate, Rhythm, No Murmur Gastrointestinal: non tender, soft Results Lab Laboratory Tests 04/24/19 14:20: Urine Test NEGATIVE Microbiology 04/23/19 MRSA Screen - Final, Complete MRSA not isolated Assessment/Plan Assessment/Plan Assess & Plan/Chief Complaint Partial small bowel obstruction better. Cholelithiasis. Hypertension. MR. Patient doing better and have surgery tomorrow. . 04/24/19. Partial small bowel obstruction better. Cholelithiasis. Hypertension. MR. Patient to have gallbladder surgery this a.m. . 04/25/19. Partial small bowel obstruction. Adhesions. Cholelithiasis. Hypertension. MR. Schizophrenia Clinical Quality Measures DVT/VTE Risk/Contraindication: Risk Factor Score Per Nursin RFS Level Per Nursing on Admit: 4+=Very High BARBARA JANE DO Apr 25, 2019 07:55
[2019-04-25] MEDS: PANTOPRAZOLE 40 MG (PROTONIX) VIAL IV SCH (09:00)
--- NOTE | 2019-04-25 10:04 | Anesthesia-General Post-Op ---
General Patient Condition Mental Status/LOC: Same as Preop Cardiovascular: Satisfactory Nausea/Vomiting: Absent Respiratory: Satisfactory Pain: Controlled Complications: Absent Post Op Complications Complications None Follow Up Care/Instructions Patient Instructions None needed. Anesthesia/Patient Condition Patient Condition Patient is doing well, no complaints, stable vital signs, no apparent adverse anesthesia problems. No complications reported per nursing. HEIKE INTERIANO CRNA Apr 25, 2019 10:04
[2019-04-25 12:00] VITALS: BP 148/84
--- NOTE | 2019-04-25 12:37 | Progress Note ---
Subjective Date Seen by a Provider: Apr 25, 2019 Time Seen by a Provider: 12:00 Subjective/Events-last exam doing well. tolerating reg diet. ambulating better. pain controlled. Objective Exam Vital Signs Date Time Temp Pulse Resp B/P (MAP) Pulse Ox O2 Delivery O2 Flow Rate FiO2 04/25/19 12:00 36.5 82 19 148/84 (105) 93 High Flow N/C 3.50 04/25/19 08:00 93 Nasal Cannula 3.00 04/25/19 07:45 36.2 82 15 143/69 (93) 3 Nasal Cannula 3.50 04/25/19 04:00 35.9 84 20 152/79 (103) 94 Nasal Cannula 2.00 04/25/19 00:06 36.0 86 16 134/70 (91) 93 04/24/19 20:45 93 Nasal Cannula 3.00 04/24/19 19:56 36.7 84 18 130/68 (88) 89 04/24/19 19:45 Nasal Cannula 3 04/24/19 19:30 36.4 16 125/75 (92) 93 Nasal Cannula 3 04/24/19 19:25 OxyMask 3 04/24/19 19:20 20 135/72 (93) 93 OxyMask 3 04/24/19 19:10 OxyMask 10 04/24/19 19:10 20 138/75 (96) 94 OxyMask 10 04/24/19 19:00 24 118/71 (87) 96 OxyMask 10 04/24/19 18:55 OxyMask 10 04/24/19 18:50 20 126/69 (88) 93 OxyMask 10 04/24/19 18:39 37 20 121/65 (83) 94 OxyMask 10 04/24/19 18:39 OxyMask 10 04/24/19 15:34 36.8 74 14 158/89 (112) 93 Room Air 04/24/19 12:45 36.4 76 20 163/94 (117) 96 Room Air I & O 04/25/19 07:00 Intake Total 2060 ml Output Total 2075 ml Balance -15 ml Capillary Refill : Less Than 3 Seconds General Appearance: No Apparent Distress HEENT: PERRL/EOMI Neck: Full Range of Motion Respiratory: Chest Non Tender, Lungs Clear, Normal Breath Sounds Cardiovascular: Regular Rate, Rhythm Gastrointestinal: soft, tenderness, other (inc clean/dry) Extremity: Normal Capillary Refill Neurologic/Psychiatric: Alert Skin: Normal Color Lymphatic: No Adenopathy Results Lab Laboratory Tests 04/24/19 14:20: Urine Test NEGATIVE Microbiology 04/23/19 MRSA Screen - Final, Complete MRSA not isolated Assessment/Plan Assessment/Plan Assess & Plan/Chief Complaint PSBO and symptomatic chronic calculous cholecystitis s/p RUIZ and cholecystectomy. doing well with good pain control and tolerating reg diet. cont ambulation. home soon. f/u 2 weeks Clinical Quality Measures DVT/VTE Risk/Contraindication: Risk Factor Score Per Nursin RFS Level Per Nursing on Admit: 4+=Very High DALILA NEGRO MD Apr 25, 2019 12:37
--- NOTE | 2019-04-25 14:27 | NUR ---
CM/SS spoke with the patient and her S/O in the room. They are discharging this day, he plans to go to the home to get her clean clothes and to then get some groceries for the home before taking her home. They did not feel would have any discharge needs.
[2019-04-25 15:20] VITALS: BP 148/84
--- NOTE | 2019-04-25 16:38 | NUR ---
NOTE THAT HOME HEALTH CALLED THIS RN -- DR JANE ARRANGED HOME HEALTH THROUGH HS OFFICE -- THIS RN ADVISED HOME HEALTH THE PT'S ADDRESS AND PHONE NO. AND THAT DR JANE HAD NOT ARRANGED HOME HEALTH PRIOR TO PT BEING DC'D FROM THE [facility]
== END 2019-04-25 15:20 | disposition home health service (06) | DRG 336 ==
LOC: EDUNIT# 01:00 → ER 01:01 → 4TH 02:55
PROVIDERS: ADMIT Surgery; ATTEND Surgery
PROC: 0FT44ZZ Resection of Gallbladder, Percutaneous Endoscopic Approach (ICD-10-PCS; 2019-04-24)
PROC: 0DNW4ZZ Release Peritoneum, Percutaneous Endoscopic Approach (ICD-10-PCS; principal; 2019-04-24 17:08)
DX: K56.600 Partial intestinal obstruction, unspecified as to cause (principal); N99.4 Postprocedural pelvic peritoneal adhesions; K80.10 Calculus of gallbladder with chronic cholecystitis without obstruction; I10 Essential (primary) hypertension; I42.9 Cardiomyopathy, unspecified; F17.210 Nicotine dependence, cigarettes, uncomplicated; I25.10 Atherosclerotic heart disease of native coronary artery without angina pectoris; E78.00 Pure hypercholesterolemia, unspecified; F41.9 Anxiety disorder, unspecified; F32.9 Major depressive disorder, single episode, unspecified; F20.9 Schizophrenia, unspecified; I25.2 Old myocardial infarction; Z95.810 Presence of automatic (implantable) cardiac defibrillator; Z90.49 Acquired absence of other specified parts of digestive tract
CPT/HCPCS: 36415; 51702; 71045; 74018; 74022; 74177; 80048; 80053; 80306; 80320; 81000; 82150; 83690; 83735; 84703; 85007; 85025; 85027; 87081; 94664; 96361; 96374

== ENCOUNTER 2019-08-06 23:44 | Inpatient (IN) | payer MEDICARE, OTHER ==
[~2019-08-06] VITALS: Ht 170.2 cm; Wt 63.0 kg
[~2019-08-06 23:44] MED LIST changes: +ACET-93 PO; +ARIP5TAB20 PO; +HYDR-34 PO; +IBUP-2055 PO; +METO-387 PO; +TRAZ150T72 PO; +VENL75CA93 PO
[2019-08-07] MEDS ORDERED: LACTATED RINGERS 1,000 ML IV ONE (00:29)
[2019-08-07] MEDS ORDERED: LORazepam INJ 2 MG/ML (ATIVAN) VIAL IVP ONE (00:30)
[2019-08-07] MEDS ORDERED: ONDANSETRON 4 MG/2 ML (SDV) Z0FRAN IVP ONE (00:30)
[2019-08-07] MEDS ORDERED: FAMOTIDINE 20MG/2ML IV (PEPCID) IVP ONE (00:30)
[2019-08-07 00:48] LABS: BILIRUBIN,URINE NEGATIVE (NEGATIVE); CLARITY,URINE CLEAR; COLOR,URINE YELLOW; GLUCOSE, URINE (UA) NEGATIVE (NEGATIVE); KETONES,URINE NEGATIVE (NEGATIVE); LEUKOCYTE ESTERASE ,URINE NEGATIVE (NEGATIVE); NITRITE,URINE NEGATIVE (NEGATIVE); PH,URINE 5.5 (5-9); PROTEIN,URINE 2+ (NEGATIVE)
[2019-08-07 01:00] LABS: BACTERIA,URINE TRACE /HPF; RBC,URINE RARE /HPF; WBC,URINE 0-2 /HPF
[2019-08-07 01:04] LABS: BASOPHILS % (AUTO) 0 % (0-10); EOSINOPHILS % (AUTO) 0 % (0-10); HEMATOCRIT 42 % (35-52); HEMOGLOBIN 13.6 G/DL (11.5-16.0); LYMPHOCYTES # (AUTO) 0.8 X 10^3 (1.0-4.0); LYMPHOCYTES % (AUTO) 4 % (12-44); MEAN CORPUSCULAR HEMOGLOBIN 29 PG (25-34); MEAN CORPUSCULAR HGB CONC 32 G/DL (32-36); MEAN CORPUSCULAR VOLUME 88 FL (80-99); MEAN PLATELET VOLUME 8.1 FL (7.4-10.4); MONOCYTES # (AUTO) 1.8 X 10^3 (0.0-1.0); MONOCYTES % (AUTO) 8 % (0-12); NEUTROPHILS # (AUTO) 19.1 X 10^3 (1.8-7.8); NEUTROPHILS % (AUTO) 88 % (42-75); PLATELET COUNT 517 10^3/uL (130-400); RED CELL DISTRIBUTION WIDTH 14.9 % (10.0-14.5); WHITE BLOOD COUNT 21.8 10^3/uL (4.3-11.0)
[2019-08-07] MEDS ORDERED: PIPERACILLIN SODIUM/TAZOBACTAM 4.5 GM in NS (IVPB) 100 ML IV ONE (01:15)
[2019-08-07 01:16] LABS: ALANINE AMINOTRANSFERASE 27 U/L (0-55); ALBUMIN 4.6 GM/DL (3.2-4.5); ALKALINE PHOSPHATASE 146 U/L (40-136); BILIRUBIN,TOTAL 0.3 MG/DL (0.1-1.0); BUN/CREATININE RATIO 25; CALCIUM 10.5 MG/DL (8.5-10.1); CARBON DIOXIDE 19 MMOL/L (21-32); CHLORIDE 102 MMOL/L (98-107); CREATININE SERUM 0.76 MG/DL (0.60-1.30); GFR ESTIMATED > 60; GLUCOSE 159 MG/DL (70-105); MAGNESIUM 1.6 MG/DL (1.6-2.4); POTASSIUM 3.9 MMOL/L (3.6-5.0); SODIUM 139 MMOL/L (135-145); TOTAL PROTEIN 8.4 GM/DL (6.4-8.2)
[2019-08-07 01:25] LABS: BAND NEUTROPHILS 12 %; BASOPHILS % (MANUAL) 0 %; EOSINOPHILS % (MANUAL) 0 %; LYMPHOCYTES % (MANUAL) 5 %; MONOCYTES % (MANUAL) 14 %; NEUTROPHILS % (MANUAL) 64 %; REACTIVE LYMPHOCYTES 5 %; TOXIC GRANULATION/VACUOLAZATIO 1+
[2019-08-07 01:34] LABS: INR 0.9 (0.8-1.4); PROTHROMBIN TIME PATIENT 12.9 SEC (12.2-14.7)
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
[2019-08-07] MEDS ORDERED: IOHEXOL 350 MG/ML 100 ML (OMNIPAQUE 350) VIAL IV ONE (02:00)
[2019-08-07] MEDS ORDERED: HOLD METFORMIN - RECEIVED CONTRAST 20 ML VIAL IV SCH (02:00)
[2019-08-07] MEDS ORDERED: NS 100 ML (IVPB) BAG IV ONE (02:00)
[2019-08-07] MEDS ORDERED: HURRICAINE EXT TUBE (BENZOCAINE) ONE (02:38)
[2019-08-07] MEDS ORDERED: D5 1/2 NS W/KCL 20 MEQ/L 1,000 ML IV ONE (03:43)
--- NOTE | 2019-08-07 03:45 | NUR ---
LAURY PRABHAKAR admitted to room 424-1, with an admitting diagnosis of SMALL BOWEL OBSTRUCTION, on 08/07/19 from [facility] [place] [facility], accompanied by STAFF.LAURY PRABHAKAR introduced to surroundings, call light, bed controls, phone, TV, temperature control, lights, meal times, smoking policy, visitor policy, side rail policy, bathrooms and showers. Patient Rights given to patient in the handbook. LAURY PRABHAKAR verbalizes understanding that [facility] is not responsible for the loss or damage to any personal effects or valuables that are kept in the patients posession during their hospitalization. LAURY PRABHAKAR verbalizes understanding of Interdisciplinary Patient Education. Patient and/or family were informed about the Rapid Response Team and its purpose.
[2019-08-07 03:47] VITALS: BP 155/83
[2019-08-07] MEDS ORDERED: LORazepam INJ 2 MG/ML (ATIVAN) VIAL IV PRN (04:00)
[2019-08-07] MEDS ORDERED: ONDANSETRON 4 MG/2 ML (SDV) Z0FRAN IV PRN (04:00)
[2019-08-07] MEDS ORDERED: fentaNYL INJECTION 100 MCG/2 ML AMP IV PRN (04:00)
[2019-08-07] MEDS: D5 1/2 NS W/KCL 20 MEQ/L 1,000 ML IV SCH ×3 (04:51→20:47)
[2019-08-07] MEDS ORDERED: PIPERACILLIN/TAZO 4.5 GM VIAL (ZOSYN) IV ONE (06:28)
[2019-08-07] MEDS ORDERED: NS (IVPB) 100 ML ONE (06:28)
--- NOTE | 2019-08-07 06:30 | Diagnostic Imaging Report ---
INDICATION: NG tube placement COMPARISON: 08/07/2019 FINDINGS: Single view of the chest and upper abdomen demonstrates an NG tube well within the stomach. There is no pneumothorax. IMPRESSION: Well-positioned NG tube. Dictated by: Dictated on workstation # [id number]
[2019-08-07] MEDS: PIPERACILLIN/TAZO 4.5 GM/NS 100 ML IV SCH ×4 (06:44→14:54)
--- NOTE | 2019-08-07 07:33 | Diagnostic Imaging Report ---
INDICATION: Nausea, vomiting COMPARISON: 04/23/2019 FINDINGS: Acute abdominal series demonstrates moderately dilated small bowel centrally. There is no free air. The chest is normal. There is an AICD in place. Prior ORIF of the left acetabulum and hip are noted. IMPRESSION: Small bowel obstruction without free air. Dictated by: Dictated on workstation # [id number]
[2019-08-07 08:00] VITALS: BP 142/77
--- NOTE | 2019-08-07 08:15 | Diagnostic Imaging Report ---
PROCEDURE: CT abdomen and pelvis with contrast. TECHNIQUE: Multiple contiguous axial images were obtained through the abdomen and pelvis after administration of intravenous contrast. Auto Exposure Controls were utilized during the CT exam to meet ALARA standards for radiation dose reduction. INDICATION: Generalized abdominal pain and history of abdominal surgery. COMPARISON: 04/21/2019. FINDINGS: Lung bases are clear. The gallbladder is surgically absent. The solid organs and vascular structures are stable in appearance. There is moderate distention of the stomach and multiple proximal small bowel loops compatible with high-grade small bowel obstruction. Transition point is seen in the mid pelvis. Distal small bowel and colon are decompressed. There is an outpouching of the cecum in the deep pelvis which is more prominent compared to the previous exam. There is no free air, free fluid or abscess. There is no lymphadenopathy. The uterus is surgically absent. Distal ureters and urinary bladder are normal. Osseous structures are stable. IMPRESSION: 1. Proximal small bowel obstruction without evidence of free air or free fluid. 2. No vascular compromise identified. 3. Surgically absent gallbladder and uterus. Dictated by: Dictated on workstation # [id number]
--- NOTE | 2019-08-07 08:22 | History & Physical ---
History of Present Illness History of Present Illness Reason for visit/HPI Patient came out to the emergency room. Vomited twice and diarrhea 3. X-ray shows small bowel obstruction. Patient states that passing any gas. Onset yesterday patient has a little MR. Patient had 3 surgeries before. 2 office small bowel obstruction and adhesions probably Date of Admission Aug 07, 2019 at 02:45 Time Seen by a Provider: 08:13 I consulted on this patient on 08/07/19 08:12 Attending Physician Alvarez Jane DO Admitting Physician Alvarez Jane DO Consult Allergies and Home Medications Allergies Coded Allergies: Sulfa (Sulfonamide Antibiotics) (Verified Allergy, Unknown, 10/22/07) Home Medications Acetaminophen 500 Mg Tablet, 500 MG PO Q6H PRN for PAIN-MILD, (Reported) Aripiprazole 5 Mg Tablet, 5 MG PO HS, (Reported) Hydrocodone Bit/Acetaminophen 1 Ea Tablet, 1 EACH PO Q4H PRN for PAIN-MODERATE Prescribed by: DALILA NEGRO on 04/24/191900 Ibuprofen 200 Mg Tablet, 400 MG PO Q6H PRN for PAIN-MILD, (Reported) Metoprolol Succinate 25 Mg Tab.er.24h, 25 MG PO DAILY, (Reported) Trazodone HCl 150 Mg Tablet, 75 MG PO HS PRN for SLEEP, (Reported) Venlafaxine HCl 75 Mg Cap.er.24h, 75 MG PO HS, (Reported) Patient Home Medication List Home Medication List Reviewed: Yes Past Blopsfp-Besztv-Yxcmyi Hx Past Med/Social Hx: Reviewed Nursing Past Med/Soc Hx Patient Social History Marrital Status: cohabiting Employed/Student: unemployed Alcohol Use: Denies Use Recreational Drug Use: No (DENIES DRUG USE EVER ON 08/07/2019) Drug of Choice: EXTENSIVE HX OF RX DRUG & OTC DRUG ABUSE/OVERDOSES--BOTH INTENTIONAL/NON-IN Type Used: Cigarettes 2nd Hand Smoke Exposure: No Recent Foreign Travel: No Contact w/other who traveled: No Recent Hopitalizations: No Recent Infectious Disease Expo: No Immunizations Up To Date Tetanus Booster (TDap): Less than 5yrs Pediatric: Yes Date of Influenza Vaccine: Apr 29, 2020 Past Medical History Surgeries: Abdominal, Appendectomy, Bowel Surgery, Cardiac, Defibrillator, Gallbladder, Orthopedic Cardiac: Cardiomyopathy, Coronary Artery Disease, Heart Attack, High Cholesterol, Hypertension : No Reproductive: No Genitourinary: Bladder Infection Gastrointestinal: Obstructive Bowel Musculoskeletal: Fractures Psychosocial: Anxiety, Suicide Attempts, Schizophrenia, Depression History of Blood Disorders: No Review of Systems Constitutional: no symptoms reported EENTM: no symptoms reported Respiratory: no symptoms reported Cardiovascular: no symptoms reported, other (History of heart disease) Gastrointestinal: diarrhea, vomiting, other (Distended a little. Decreased bowel sounds) Genitourinary: no symptoms reported Physical Exam Vital Signs Vital Signs - First Documented 08/07/19 08/07/19 00:10 03:36 Temp 36.6 Pulse 128 Resp 18 B/P (MAP) 143/117 (126) Pulse Ox 93 O2 Delivery Room Air Capillary Refill : Less Than 3 Seconds Height, Weight, BMI Height: 5'6.00" Weight: 160lbs. oz. [id number]; 21.74 BMI Method:Stated General Appearance: No Apparent Distress, WD/WN Eyes: Bilateral Eye Normal Inspection HEENT: Normal ENT Inspection Neck: Full Range of Motion, Normal Inspection Respiratory: Lungs Clear, No Accessory Muscle Use, No Respiratory Distress Cardiovascular: Regular Rate, Rhythm Gastrointestinal: Distended, Other (Decreased bowel sounds) Assessment/Plan Assessment and Plan Small bowel obstruction. MR. Admission Diagnosis Admission Status: Inpatient Order (span 2 midnights) Reason for Inpatient Admission: Small bowel obstruction. May need surgery. Clinical Quality Measures DVT/VTE Risk/Contraindication: Risk Factor Score Per Nursin RFS Level Per Nursing on Admit: 4+=Very High Contraindications-Pharm: Other *list below* ALVAREZ JANE DO Aug 07, 2019 08:22
[2019-08-07] MEDS ORDERED: LORA10TA7 PO (08:34)
[2019-08-07] MEDS ORDERED: ASPI-983 PO (08:34)
--- NOTE | 2019-08-07 08:35 | NUR ---
PATIENT LISTED HER MEDICATIONS TO ME AND I COMPARED IT WITH THE EXT MED HX. SHE STATES SHE TAKES TRAZODONE HOWEVER HAS NOT FILLED IT SINCE 11-22-18 #30 150MG. IT WAS PREVIOUSLY REPORTED 1/2 TAB, SHE STATES SHE TAKES 1/2 TO 1 NEEDED, SHE DOES NOT TAKE IT EVERY NIGHT. SHE ALSO STATE SHE TAKES ASPIRIN 81MG AND TYLENOL OTC NEEDED.
[2019-08-07] MEDS: FAMOTIDINE 20MG/2ML IV (PEPCID) IV SCH ×2 (09:25→20:57)
[2019-08-07 10:02] LABS: BASOPHILS % (AUTO) 0 % (0-10); EOSINOPHILS # (AUTO) 0.1 10^3/uL (0.0-0.3); EOSINOPHILS % (AUTO) 1 % (0-10); HEMATOCRIT 39 % (35-52); HEMOGLOBIN 12.6 G/DL (11.5-16.0); LYMPHOCYTES # (AUTO) 0.8 X 10^3 (1.0-4.0); LYMPHOCYTES % (AUTO) 7 % (12-44); MEAN CORPUSCULAR HEMOGLOBIN 28 PG (25-34); MEAN CORPUSCULAR HGB CONC 32 G/DL (32-36); MEAN CORPUSCULAR VOLUME 89 FL (80-99); MEAN PLATELET VOLUME 8.5 FL (7.4-10.4); MONOCYTES # (AUTO) 1.8 X 10^3 (0.0-1.0); MONOCYTES % (AUTO) 14 % (0-12); NEUTROPHILS # (AUTO) 10.1 X 10^3 (1.8-7.8); NEUTROPHILS % (AUTO) 78 % (42-75); PLATELET COUNT 476 10^3/uL (130-400); WHITE BLOOD COUNT 12.8 10^3/uL (4.3-11.0)
--- NOTE | 2019-08-07 11:55 | NUR ---
"RD ASSESSMENT PMHx: CAD; CA; hypercholesterolemia; HTN; obstructive bowel PT INTERACTION: Pt was awake and pleasant during consult for MST score. Pt states current appetite is good and has been for some time. Note pt currently NPO for current admission of SBO, per chart review. Pt states following a regular diet at home and has no issues with chewing/swallowing food, though pt does have dentures. Pt states recent episodes of n/v at this time. Pt states having recent issues with constipation, and states last BM was 08/06. Note pt currently not on bowel regimen, per chart review. Pt states no recent wt changes. Note recent 6# wt loss x3mon, per chart review. Given pt current appetite and wt hx, pt does not meet criteria for malnutrition per ASPEN guidelines. If PO intake remains low, pt would be at for malnutrition. ABNORMAL NUTRITION-RELATED LAB VALUES LOW: HIGH: BUN 19; glu 159; CA 10.5; alkphos 146; Pro 8.4; alb 4.6 Est. kcal needs: 7691-5340 kcal | 25-30 kcal/kg Est. Pro needs: 63-76 g Pro | 1.0-1.2 g Pro/kg PES STATEMENT: Inadequate oral intake (NI-2.1) related to NPO status | nausea | vomiting | SBO as evidenced by pt interview INTERVENTION: Note pt is currently NPO. Will continue to follow and reassess as pt needs and status change. MONITOR/EVALUATE: PO Intake; Plan of Care; Hydration Status; Weight Status; Lab Values Lilibeth Ramirez, MS, RD, LD"
[2019-08-07 12:00] VITALS: BP 155/81
[2019-08-07 15:26] VITALS: BP 139/71
[2019-08-07 19:32] VITALS: BP 157/80
[2019-08-08] MEDS: PIPERACILLIN/TAZO 4.5 GM/NS 100 ML IV SCH ×4 (00:28→05:16)
[2019-08-08 01:00] VITALS: BP 135/77
[2019-08-08 03:26] VITALS: BP 135/80
[2019-08-08] MEDS: D5 1/2 NS W/KCL 20 MEQ/L 1,000 ML IV SCH ×3 (04:04→20:20)
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
[2019-08-08 07:10] LABS: BASOPHILS % (AUTO) 0 % (0-10); EOSINOPHILS # (AUTO) 0.3 10^3/uL (0.0-0.3); EOSINOPHILS % (AUTO) 4 % (0-10); HEMATOCRIT 36 % (35-52); HEMOGLOBIN 11.6 G/DL (11.5-16.0); LYMPHOCYTES # (AUTO) 2.1 X 10^3 (1.0-4.0); LYMPHOCYTES % (AUTO) 28 % (12-44); MEAN CORPUSCULAR HEMOGLOBIN 29 PG (25-34); MEAN CORPUSCULAR HGB CONC 32 G/DL (32-36); MEAN CORPUSCULAR VOLUME 90 FL (80-99); MEAN PLATELET VOLUME 8.2 FL (7.4-10.4); MONOCYTES # (AUTO) 1.2 X 10^3 (0.0-1.0); MONOCYTES % (AUTO) 17 % (0-12); NEUTROPHILS # (AUTO) 3.8 X 10^3 (1.8-7.8); NEUTROPHILS % (AUTO) 51 % (42-75); PLATELET COUNT 403 10^3/uL (130-400); WHITE BLOOD COUNT 7.4 10^3/uL (4.3-11.0)
[2019-08-08 07:35] LABS: ALANINE AMINOTRANSFERASE 22 U/L (0-55); ALBUMIN 3.7 GM/DL (3.2-4.5); ALKALINE PHOSPHATASE 112 U/L (40-136); BILIRUBIN,TOTAL 0.3 MG/DL (0.1-1.0); BUN/CREATININE RATIO 22; CALCIUM 8.9 MG/DL (8.5-10.1); CARBON DIOXIDE 23 MMOL/L (21-32); CHLORIDE 104 MMOL/L (98-107); CREATININE SERUM 0.67 MG/DL (0.60-1.30); GFR ESTIMATED > 60; GLUCOSE 109 MG/DL (70-105); POTASSIUM 3.8 MMOL/L (3.6-5.0); SODIUM 138 MMOL/L (135-145); TOTAL PROTEIN 6.8 GM/DL (6.4-8.2)
--- NOTE | 2019-08-08 07:59 | Progress Note ---
Subjective Time Seen by a Provider: 07:54 Subjective/Events-last exam Patient states she is passing gas this morning. Patient states she had a little bowel movement. Patient's abdomen is soft of compared to yesterday. Bowel sounds are a little better. Tomorrow to have a small bowel studies Focused Exam Lactate Level 08/07/19 01:23: Lactic Acid Level 2.91*H 08/07/19 03:19: Lactic Acid Level 1.98 Objective Exam Vital Signs Date Time Temp Pulse Resp B/P (MAP) Pulse Ox O2 Delivery O2 Flow Rate FiO2 08/08/19 03:26 37.3 96 16 135/80 (98) 94 Room Air 08/08/19 01:00 37.1 99 18 135/77 (96) 95 Room Air 08/07/19 20:00 92 Room Air 08/07/19 19:32 37.3 109 18 157/80 (105) 92 Room Air 08/07/19 15:26 36.7 114 18 139/71 (93) 95 Room Air 08/07/19 12:00 36.7 113 16 155/81 (105) 92 Room Air 08/07/19 08:00 36.6 114 18 142/77 (98) 93 Room Air 08/07/19 08:00 93 Room Air I & O 08/08/19 07:00 Intake Total 0 ml Output Total 900 ml Balance -900 ml Capillary Refill : Less Than 3 Seconds General Appearance: No Apparent Distress, WD/WN HEENT: Normal ENT Inspection Neck: Full Range of Motion, Normal Inspection Respiratory: No Accessory Muscle Use, No Respiratory Distress Cardiovascular: Regular Rate, Rhythm, No Murmur Gastrointestinal: non tender, soft Results Lab Laboratory Tests 08/07/19 09:28 08/08/19 05:42 08/08/19 06:35 Laboratory Tests 08/07/19 09:28: White Blood Count 12.8H, Red Blood Count 4.43, Hemoglobin 12.6, Hematocrit 39, Mean Corpuscular Volume 89, Mean Corpuscular Hemoglobin 28, Mean Corpuscular Hemoglobin Concent 32, Red Cell Distribution Width 15.0H, Platelet Count 476H, Mean Platelet Volume 8.5, Neutrophils (%) (Auto) 78H, Lymphocytes (%) (Auto) 7L, Monocytes (%) (Auto) 14H, Eosinophils (%) (Auto) 1, Basophils (%) (Auto) 0, Neutrophils # (Auto) 10.1H, Lymphocytes # (Auto) 0.8L, Monocytes # (Auto) 1.8H, Eosinophils # (Auto) 0.1, Basophils # (Auto) 0.0 08/08/19 05:42: Sodium Level 138, Potassium Level 3.8, Chloride Level 104, Carbon Dioxide Level 23, Anion Gap 11, Blood Urea Nitrogen 15, Creatinine 0.67, Estimat Glomerular Filtration Rate > 60, BUN/Creatinine Ratio 22, Glucose Level 109H, Calcium Level 8.9, Corrected Calcium 9.1, Total Bilirubin 0.3, Aspartate Amino Transf (A ST/SGOT) 23, Alanine Aminotransferase (ALT/SGPT) 22, Alkaline Phosphatase 112, Total Protein 6.8, Albumin 3.7 08/08/19 06:35: White Blood Count 7.4, Red Blood Count 4.05L, Hemoglobin 11.6, Hematocrit 36, Mean Corpuscular Volume 90, Mean Corpuscular Hemoglobin 29, Mean Corpuscular Hemoglobin Concent 32, Red Cell Distribution Width 15.0H, Platelet Count 403H, Mean Platelet Volume 8.2, Neutrophils (%) (Auto) 51, Lymphocytes (%) (Auto) 28, Monocytes (%) (Auto) 17H, Eosinophils (%) (Auto) 4, Basophils (%) (Auto) 0, Neutrophils # (Auto) 3.8, Lymphocytes # (Auto) 2.1, Monocytes # (Auto) 1.2H, Eosinophils # (Auto) 0.3, Basophils # (Auto) 0.0 Assessment/Plan Assessment/Plan Assess & Plan/Chief Complaint Small bowel obstruction versus partial bowel obstruction. Hypertension. Adhesions Clinical Quality Measures Admission Status Admission Dx Small bowel obstruction. MR. DVT/VTE Risk/Contraindication: Risk Factor Score Per Nursin RFS Level Per Nursing on Admit: 4+=Very High Contraindications-Pharm: Other *list below* BARBARA JANE DO Aug 08, 2019 07:58
[2019-08-08 08:29] VITALS: BP 132/79
[2019-08-08] MEDS: FAMOTIDINE 20MG/2ML IV (PEPCID) IV SCH ×2 (09:05→20:21)
[2019-08-08 11:35] VITALS: BP 125/81
[2019-08-08] MEDS ORDERED: DIATRIZOATE MEGLUM/SODIUM 37% 120 ML (GASTROGRAFIN) NG ONE (12:15)
--- NOTE | 2019-08-08 12:23 | Diagnostic Imaging Report ---
INDICATION: Small bowel obstruction. TECHNIQUE: 120 cc of Gastrografin contrast mixed with 120 cc of water was injected through the patient's nasogastric tube. Serial radiographs of the abdomen were then obtained. FINDINGS: Preliminary radiograph does show an NG tube passes below the diaphragm. Bladder is distended with contrast. There are postop changes to the left hemipelvis with multiple malleable plates and screws. There are postop changes in the proximal left femur. The bowel gas pattern is unremarkable and appears nonobstructed. Post contrast injection images demonstrate contrast within the stomach. There is prompt emptying into proximal small bowel loops. There appears to be normal progression of contrast through small bowel loops, reaching the right colon at 1 hour. Mucosal fold pattern is unremarkable. IMPRESSION: No evidence of small bowel obstruction. Dictated by: Dictated on workstation # [id number]
--- NOTE | 2019-08-08 12:32 | NUR ---
Pt's small bowel follow through complete at 1115. This RN notified Dr. Wilcox. Dr. Wilcox stated to leave nasogastric tube in on low suction for 1 hour and then remove NG tube and place pt on a clear liquid diet. This RN removed the NG tube at 1235.
--- NOTE | 2019-08-08 12:40 | NUR ---
This RN removed nasogastric tube. 200 mls of drainage at time of removal.
--- NOTE | 2019-08-08 14:58 | Progress Note ---
Subjective Date Seen by a Provider: Aug 08, 2019 Time Seen by a Provider: 14:00 Subjective/Events-last exam doing better. contrast to colon within 30 minutes. has had multiple BM's as well. tolerating clears. Focused Exam Lactate Level 08/07/19 01:23: Lactic Acid Level 2.91*H 08/07/19 03:19: Lactic Acid Level 1.98 Objective Exam Vital Signs Date Time Temp Pulse Resp B/P (MAP) Pulse Ox O2 Delivery O2 Flow Rate FiO2 08/08/19 11:35 37.1 106 16 125/81 (96) 95 Room Air 08/08/19 09:00 93 Room Air 08/08/19 08:29 36.1 103 16 132/79 (96) 93 Room Air 08/08/19 03:26 37.3 96 16 135/80 (98) 94 Room Air 08/08/19 01:00 37.1 99 18 135/77 (96) 95 Room Air 08/07/19 20:00 92 Room Air 08/07/19 19:32 37.3 109 18 157/80 (105) 92 Room Air 08/07/19 15:26 36.7 114 18 139/71 (93) 95 Room Air I & O 08/08/19 07:00 Intake Total 0 ml Output Total 900 ml Balance -900 ml Capillary Refill : Less Than 3 Seconds General Appearance: No Apparent Distress HEENT: PERRL/EOMI Neck: Full Range of Motion Respiratory: Chest Non Tender, Lungs Clear Cardiovascular: Regular Rate, Rhythm Gastrointestinal: normal bowel sounds, non tender, soft Extremity: Normal Capillary Refill Neurologic/Psychiatric: Alert, Other (confused) Skin: Normal Color Lymphatic: No Adenopathy Results Lab Laboratory Tests 08/08/19 05:42: Sodium Level 138, Potassium Level 3.8, Chloride Level 104, Carbon Dioxide Level 23, Anion Gap 11, Blood Urea Nitrogen 15, Creatinine 0.67, Estimat Glomerular Filtration Rate > 60, BUN/Creatinine Ratio 22, Glucose Level 109H, Calcium Level 8.9, Corrected Calcium 9.1, Total Bilirubin 0.3, Aspartate Amino Transf (AST/SGOT) 23, Alanine Aminotransferase (ALT/SGPT) 22, Alkaline Phosphatase 112, Total Protein 6.8, Albumin 3.7 08/08/19 06:35: White Blood Count 7.4, Red Blood Count 4.05L, Hemoglobin 11.6, Hematocrit 36, Mean Corpuscular Volume 90, Mean Corpuscular Hemoglobin 29, Mean Corpuscular Hemoglobin Concent 32, Red Cell Distribution Width 15.0H, Platelet Count 403H, Mean Platelet Volume 8.2, Neutrophils (%) (Auto) 51, Lymphocytes (%) (Auto) 28, Monocytes (%) (Auto) 17H, Eosinophils (%) (Auto) 4, Basophils (%) (Auto) 0, Neutrophils # (Auto) 3.8, Lymphocytes # (Auto) 2.1, Monocytes # (Auto) 1.2H, Eosinophils # (Auto) 0.3, Basophils # (Auto) 0.0 Assessment/Plan Assessment/Plan Assess & Plan/Chief Complaint PSBO. resolving. resume previous home meds if not already done so. advance diet. Clinical Quality Measures DVT/VTE Risk/Contraindication: Risk Factor Score Per Nursin RFS Level Per Nursing on Admit: 4+=Very High Contraindications-Pharm: Other *list below* DALILA NEGRO MD Aug 08, 2019 14:58
[2019-08-08] MEDS ORDERED: LORATADINE (CLARITIN) 10 MG TAB PO PRN (15:00)
[2019-08-08] MEDS ORDERED: ASPIRIN E.C. 81 MG (ECOTRIN) TAB PO PRN (15:00)
--- NOTE | 2019-08-08 15:04 | Discharge Inst-Surgical ---
D/C Lap Instructions-MARKY Follow Up Appt in 2 weeks Activity as tolerated Regular Diet(low residue) Symptoms to Report: Fever over 101 degree F, Nausea/Vomiting Infection Signs and Symptoms to report: Increased redness, Foul odor of wound, Increased drainage Bathing instructions: May shower Operative Area Clean/Dry; Keep incision clean/dry If any problems/questions: Contact your physician or go to Emergency Room DALILA NEGRO MD Aug 08, 2019 15:04
[2019-08-08 16:34] VITALS: BP 135/76
[2019-08-08] MEDS: VENlafaxine XR 75 MG (EFFEXOR XR) CAP PO SCH (17:16)
[2019-08-08] MEDS: LORazepam 0.5 MG (ATIVAN) TABLET PO PRN ×2 (17:16→22:46)
[2019-08-08 19:31] VITALS: BP 119/79
[2019-08-08] MEDS: CEFDINIR 300 MG (OMNICEF) CAP PO SCH (20:04)
[2019-08-08] MEDS: ACETAMINOPHEN 500 MG TAB (TYLENOL) PO PRN (20:04)
[2019-08-08] MEDS: traZODone 150 MG (DESYREL) TABLET PO PRN (20:05)
[2019-08-08] MEDS ORDERED: NON-FORMULARY MEDICATION 1 EA EA (Aripiprazole 5 MG) PO SCH (21:00)
[2019-08-09] MEDS: D5 1/2 NS W/KCL 20 MEQ/L 1,000 ML IV SCH (04:30)
[2019-08-09 04:34] VITALS: BP 113/64
[2019-08-09 06:10] LABS: HEMOGLOBIN 10.9 G/DL (11.5-16.0); MEAN PLATELET VOLUME 8.3 FL (7.4-10.4); RED CELL DISTRIBUTION WIDTH 14.5 % (10.0-14.5); WHITE BLOOD COUNT 6.6 10^3/uL (4.3-11.0)
[2019-08-09 06:33] LABS: ALANINE AMINOTRANSFERASE 27 U/L (0-55); ALBUMIN 3.7 GM/DL (3.2-4.5); ALKALINE PHOSPHATASE 106 U/L (40-136); BILIRUBIN,TOTAL 0.2 MG/DL (0.1-1.0); BUN/CREATININE RATIO 24; CARBON DIOXIDE 22 MMOL/L (21-32); CHLORIDE 106 MMOL/L (98-107); CREATININE SERUM 0.66 MG/DL (0.60-1.30); GFR ESTIMATED > 60; GLUCOSE 101 MG/DL (70-105); POTASSIUM 3.6 MMOL/L (3.6-5.0); SODIUM 141 MMOL/L (135-145); TOTAL PROTEIN 6.6 GM/DL (6.4-8.2)
[2019-08-09 08:00] VITALS: BP 135/83
[2019-08-09] MEDS: PANTOPRAZOLE 40 MG (PROTONIX) TAB PO SCH (09:06)
[2019-08-09] MEDS: CEFDINIR 300 MG (OMNICEF) CAP PO SCH ×2 (09:06→20:01)
[2019-08-09 12:00] VITALS: BP 110/61
[2019-08-09] MEDS: LORazepam 0.5 MG (ATIVAN) TABLET PO PRN ×2 (13:27→18:14)
--- NOTE | 2019-08-09 13:31 | Progress Note - Hospitalist ---
Subjective HPI/CC On Admission Date Seen by Provider: Aug 09, 2019 Time Seen by Provider: 12:15 Subjective/Events-last exam Pt reports feeling well. Has had a BM. Tolerating diet. No complaints. Focused Exam Lactate Level 08/07/19 01:23: Lactic Acid Level 2.91*H 08/07/19 03:19: Lactic Acid Level 1.98 Objective Exam Vital Signs Vital Signs Date Time Temp Pulse Resp B/P (MAP) Pulse Ox O2 Delivery O2 Flow Rate FiO2 08/09/19 09:10 98 Room Air 08/09/19 08:00 36.4 92 16 135/83 (100) 2.00 Capillary Refill : Less Than 3 SecondsLess Than 3 Seconds General Appearance: No Apparent Distress, Chronically ill Respiratory: Lungs Clear, No Respiratory Distress Cardiovascular: Regular Rate, Rhythm Gastrointestinal: Normal Bowel Sounds, Non Tender, Soft Results/Procedures Lab Laboratory Tests 08/09/19 05:30 Patient resulted labs reviewed. Assessment/Plan Assessment and Plan Assess & Plan/Chief Complaint Small bowel obstruction- Now resolved clinically, discussed with Dr Jaime who states CT more concerning Hypertension- well controlled Clinical Quality Measures DVT/VTE Risk/Contraindication: Risk Factor Score Per Nursin RFS Level Per Nursing on Admit: 4+=Very High Contraindications-Pharm: Other *list below* JESSIE LARA MD Aug 09, 2019 13:31
[2019-08-09 16:00] VITALS: BP 136/72
[2019-08-09] MEDS: VENlafaxine XR 75 MG (EFFEXOR XR) CAP PO SCH (17:29)
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
[2019-08-09 20:00] VITALS: BP 129/65
[2019-08-09] MEDS: traZODone 150 MG (DESYREL) TABLET PO PRN (20:00)
[2019-08-09] MEDS: ACETAMINOPHEN 500 MG TAB (TYLENOL) PO PRN (20:01)
[2019-08-10] VITALS: BP 132/65
[2019-08-10 07:58] VITALS: BP 140/74
[2019-08-10] MEDS: CEFDINIR 300 MG (OMNICEF) CAP PO SCH (08:17)
[2019-08-10] MEDS: PANTOPRAZOLE 40 MG (PROTONIX) TAB PO SCH (08:17)
[2019-08-10] MEDS: LORazepam 0.5 MG (ATIVAN) TABLET PO PRN (08:22)
--- NOTE | 2019-08-10 12:05 | Discharge Summary ---
Diagnosis/Chief Complaint Date of Admission Aug 07, 2019 at 02:45 Date of Discharge Discharge Date: Aug 10, 2019 Primary Care Alvarez Rivera DO Discharge Summary Procedures/Consulations Surgery Discharge Physical Exam Allergies: Coded Allergies: Sulfa (Sulfonamide Antibiotics) (Verified Allergy, Unknown, 10/22/07) Vitals & I&Os Vital Signs Date Time Temp Pulse Resp B/P (MAP) Pulse Ox O2 Delivery O2 Flow Rate FiO2 08/10/19 08:00 93 Room Air 08/10/19 07:58 35.8 92 16 140/74 (96) 08/09/19 20:00 2.00 General Appearance: No Apparent Distress, WD/WN Gastrointestinal: Normal Bowel Sounds, Soft Neurologic/Psychiatric: Alert, Oriented x3 Hospital Course Pt was admitted due to small bowel obstruction. Surgery was consulted and she was managed conservatively with bowel rest. She underwent small bowel follow through with showed contrast passing to the colon and she had a resultant bowel movement. Her diet was advanced and she tolerated this well. She was discharged home in stable condition to follow up with Dr Rivera in 1 week. Labs (last 24 hrs) Microbiology 08/07/19 Blood Culture - Preliminary, Resulted No growth Patient resulted labs reviewed. Discussion & Recommendations Discharge Planning: >30 minutes discharge planning Discharge Home Medications: Active Scripts Active Reported Aspirin EC (Aspirin) 81 Mg Tablet.dr 81 Mg PO DAILY PRN Loratadine 10 Mg Tablet 10 Mg PO DAILY PRN Venlafaxine HCl ER (Venlafaxine HCl) 75 Mg Cap.er.24h 75 Mg PO HS Acetaminophen 500 Mg Tablet 500-1,000 Mg PO Q6H PRN Trazodone HCl 150 Mg Tablet 75-150 Mg PO HS PRN LAST FILLED #30 11-22- Aripiprazole 5 Mg Tablet 5 Mg PO HS Metoprolol Succinate 25 Mg Tab.er.24h 25 Mg PO DAILY Instructions to patient/family Please see electronic discharge instructions given to patient. Clinical Quality Measures DVT/VTE Risk/Contraindication: Risk Factor Score Per Nursin RFS Level Per Nursing on Admit: 4+=Very High Contraindications-Pharm: Other *list below* JESSIE LARA MD Aug 10, 2019 12:05
--- NOTE | 2019-08-10 14:02 | Progress Note - Surgery ---
Subjective Time Seen by a Provider: 12:41 Subjective/Events-last exam Pt seen and examined, no new complaints; wants to go home. Review of Systems General: No Chills, No Night Sweats Cardiovascular: No: Chest Pain, Palpitations Gastrointestinal: No: Nausea, Vomiting, Abdominal Pain Objective Exam Vital Signs Date Time Temp Pulse Resp B/P (MAP) Pulse Ox O2 Delivery O2 Flow Rate FiO2 08/10/19 08:00 93 Room Air 08/10/19 07:58 35.8 92 16 140/74 (96) 94 Room Air 08/10/19 00:00 36.8 88 16 132/65 (87) 93 Room Air 08/09/19 20:00 93 Room Air 08/09/19 20:00 36.8 86 16 129/65 (86) 93 Nasal Cannula 2.00 08/09/19 16:00 36.3 88 18 136/72 (93) 92 Nasal Cannula 2.00 I & O 08/10/19 07:00 Intake Total 960 ml Balance 960 ml Capillary Refill : Less Than 3 SecondsLess Than 3 Seconds General Appearance: No Apparent Distress, WD/WN HEENT: PERRL/EOMI, Moist Mucous Membranes Respiratory: Lungs Clear, No Respiratory Distress Cardiovascular: Regular Rate, Rhythm, No Murmur Gastrointestinal: normal bowel sounds, non tender, soft Skin: Normal Color, Warm/Dry Results Lab Microbiology 08/07/19 Blood Culture - Preliminary, Resulted No growth Assessment/Plan Assessment/Plan Assessment/Plan PSBO - resolving Pt told to ambulate and diet as tolerated. Abdomen is soft and she will be D/C'd home today. Clinical Quality Measures DVT/VTE Risk/Contraindication: Risk Factor Score Per Nursin RFS Level Per Nursing on Admit: 4+=Very High Contraindications-Pharm: Other *list below* JANE OTERO DO Aug 10, 2019 14:02
--- NOTE | 2019-08-10 14:55 | NUR ---
LAURY PRABHAKAR demonstrates understanding of discharge instructions and accurately returns instructions upon questioning. Copy of Post-Discharge Instructions and Medication Discharge Instructions given to patient and significant other. LAURY PRABHAKAR is able to manage continuing needs after discharge. Patients belongings returned to patient. Skin dry and intact; no breakdown noted. Patient discharged from [facility] on 08/10/2019 at 1451. LAURY PRABHAKAR left floor via wheelchair, accompanied by this RN to private vehicle..
[2019-08-10 14:57] VITALS: BP 136/76
== END 2019-08-10 15:03 | disposition other institution (70) | DRG 389 ==
LOC: EDUNIT# 23:44 → ER 23:47 → 4TH 08-07 02:45
PROVIDERS: ADMIT Family Medicine; ATTEND Family Medicine
PROC: 0D9670Z Drainage of Stomach with Drainage Device, Via Natural or Artificial Opening (ICD-10-PCS; principal; 2019-08-07)
DX: K56.51 Intestinal adhesions [bands], with partial obstruction (principal); I42.9 Cardiomyopathy, unspecified; I25.10 Atherosclerotic heart disease of native coronary artery without angina pectoris; F17.210 Nicotine dependence, cigarettes, uncomplicated; E78.00 Pure hypercholesterolemia, unspecified; I10 Essential (primary) hypertension; F41.9 Anxiety disorder, unspecified; F32.9 Major depressive disorder, single episode, unspecified; F20.9 Schizophrenia, unspecified; I25.2 Old myocardial infarction; Z91.5 Personal history of self-harm; Z90.49 Acquired absence of other specified parts of digestive tract
CPT/HCPCS: 36415; 71045; 74022; 74177; 74250; 80053; 81000; 83605; 83735; 85007; 85025; 85027; 85610; 85730; 86141; 87040; 96361; 96365; 96375

== ENCOUNTER 2021-03-22 08:00 | Day surgery (SDC) | payer MEDICARE, OTHER ==
[2021-03-22] VITALS (10 sets, daily range): BP systolic 93–151; BP diastolic 59–86
[~2021-03-22] VITALS: Ht 173 cm; Wt 66.0 kg
[2021-03-22 07:26] LABS: HEMATOCRIT 40 % (35-52); HEMOGLOBIN 12.6 g/dL (11.5-16.0); MEAN CORPUSCULAR HEMOGLOBIN 29 pg (25-34); MEAN CORPUSCULAR HGB CONC 31 g/dL (32-36); MEAN CORPUSCULAR VOLUME 93 fL (80-99); MEAN PLATELET VOLUME 8.1 fL (9.0-12.2); PLATELET COUNT 443 10^3/uL (130-400); WHITE BLOOD COUNT 11.9 10^3/uL (4.3-11.0)
[2021-03-22 07:34] LABS: PROTHROMBIN TIME PATIENT 13.4 SEC (12.2-14.7)
[2021-03-22 07:36] LABS: ALBUMIN 4.5 GM/DL (3.2-4.5); POTASSIUM 3.6 MMOL/L (3.6-5.0)
[2021-03-22 07:37] LABS: CALCIUM 9.9 MG/DL (8.5-10.1)
[2021-03-22 07:41] LABS: BILIRUBIN,TOTAL 0.2 MG/DL (0.1-1.0)
[2021-03-22 07:42] LABS: CREATININE SERUM 0.77 MG/DL (0.60-1.30)
[~2021-03-22 08:00] MED LIST changes: -ARIP5TAB20 PO; +ARIP5TAB57 PO; +ASPI-1238 PO; +HEParin (CATH LAB) 1,000 ML IV ONE; -IBUP-2055 PO; +IBUP-2473 PO; +LIDOCAINE 1% INJ 20 ML 20 ML VIAL ONE; +LORA10TA7 PO; -METO-387 PO; +NS IV 1000 ML 1,000 ML IV SCH; +NS IV 1000 ML 1,000 ML ONE; +ceFAZolin INJECTION 1,000 MG ONE
[2021-03-22] MEDS ORDERED: METO50TA7 PO (08:02)
[2021-03-22] MEDS ORDERED: MIDAZOLAM 5 MG/5 ML (VERSED) VIAL ONE (08:27)
[2021-03-22] MEDS ORDERED: fentaNYL INJ 100 MCG/2 ML AMP ONE (08:27)
--- NOTE | 2021-03-22 09:39 | Cardiac Procedure Note-CS/ASA ---
Pre-Procedure Note Pre-Op Procedure Note H&P Reviewed The H&P was reviewed, patient examined and no changes noted. Date H&P Reviewed: Mar 22, 2021 Time H&P Reviewed: 08:30 Conscious Sedation Pre-Proced Time 08:30 ASA Score 3 For ASA 3 and 4: Consider anesthesia and medical clearance. Also, for patients with a history of failed moderate sedation consider anesthesia. Airway Lungs Heart ASA score ASA 1: a normal healthy patient ASA 2: a patient with a mild systemic disease (mid diabetes, controlled hypertension, obesity ASA 3: a patient with a severe systemic disease that limits activity (angina, COPD, prior Myocardial infarction) ASA 4: a patient with an incapacitating disease that is a constant threat to life (CHF, renal failure) ASA 5: a moribund patient not expected to survive 24 hrs. (ruptured aneurysm) ASA 6: a declared brain- patient whose organs are being harvested. For emergent operations, add the letter E after the classification Mallampati Classification Grade 2 Sedation Plan Analgesia, Amnesia, Plan communicated to team members, Discussed options with patient/fam, Discussed risks with patient/fam The patient is an appropriate candidate to undergo the planned procedure, sedation, and anesthesia. The patient immediately re-assessed prior to indication. MOMO US MD FACP FAC CCDS Mar 22, 2021 09:39
[2021-03-22] MEDS ORDERED: CEFU500T63 PO (09:44)
--- NOTE | 2021-03-22 09:44 | Discharge Inst-Cardiology ---
Discharge Inst-Cardiac Discharge Medications New Medications: Cefuroxime Axetil (Cefuroxime) 500 Mg Tablet 500 MG PO BID, #10 TAB Continued Medications: Acetaminophen (Acetaminophen) 500 Mg Tablet 500-1000 MG PO Q6H PRN for PAIN-MILD (1-4), TAB Aripiprazole (Aripiprazole) 5 Mg Tablet 5 MG PO HS, TAB Loratadine (Loratadine) 10 Mg Tablet 10 MG PO DAILY, TAB Metoprolol Succinate (Metoprolol Succinate) 50 Mg Tab.er.24h 50 MG PO DAILY, TAB Trazodone HCl (Trazodone HCl) 150 Mg Tablet 75-150 MG PO HS PRN for SLEEP, TAB Venlafaxine HCl (Venlafaxine HCl ER) 75 Mg Cap.er.24h 75 MG PO HS, CAP Patient Instructions Patient Instructions: F/u at Dr Alvarez's for wound check on 03/25/21 F/u with Dr Alvarez in one month MOMO ALVAREZ MD [facility] CCDS Mar 22, 2021 09:44
[2021-03-22] MEDS ORDERED: PATIENT MAY USE OWN MEDS, ALL PO SCH (09:45)
[2021-03-22] MEDS ORDERED: NS IV 1000 ML 1,000 ML IV SCH (09:45)
--- NOTE | 2021-03-22 10:35 | Diagnostic Imaging Report ---
Indication: Postop pacemaker generator exchange. Findings: Battery overlies the left chest, the leads unremarkable. There is no pneumothorax. The lungs are clear. Impression: No pneumothorax or other acute abnormalities. Dictated by: Dictated on workstation # [id number]
--- NOTE | 2021-03-22 13:36 | OPERATIVE REPORT ---
DATE OF SERVICE: 03/22/2021 PREOPERATIVE DIAGNOSIS: Dual chamber ICD elective replacement indicator. POSTOPERATIVE DIAGNOSIS: Dual chamber ICD elective replacement indicator. PROCEDURE: Pulse generator change. INDICATIONS: The patient is a 50-year-old lady, who has a history of nonischemic cardiomyopathy and who had a dual chamber ICD implanted in 2007, the pulse generator of which was changed out in 2013 after it had readched elective replacement indicator and now that device has also reached elective replacement indicator and she underwent another pulse generator change after having provided an informed consent. DESCRIPTION OF PROCEDURE: She was brought to the [facility] in a fasting state. She was brought to the cardiac catheterization laboratory in the left prepectoral area, site of previous implant, was prepared and draped in the usual sterile fashion. Lidocaine 1% was used for local anesthesia. Sharp and blunt dissection was used to open the device pocket and the device was removed from the pocket and detached from the leads. The leads were attached to a new pulse generator. The explanted device is [employer] model D013 with serial #[id number]. The new device is [employer] model D121 with serial #[id number]. The pocket was irrigated with saline. The device was placed back into the pocket and the pocket was closed in 2 layers using 3.0 Vicryl. She tolerated the procedure well. The device and the leads are functioning normally. Right atrial amplitude is measured at 3 millivolts. Right ventricular amplitude is measured at 10.1 millivolts. Capture threshold is 0.7 volts at 0.4 milliseconds in the right atrium and 2 volts at 1 millisecond in the right ventricle. This is essentially unchanged from previous measurements. Right atrial lead impedance is 543 ohms. Right ventricular lead impedance is 544 ohms. Shock impedance is 52 ohms. Job ID: [id number] DocumentID: [id number] Dictated Date: 03/22/2021 09:37:39 Car Head Liner Installer Date: 03/22/2021 13:34:32 Dictated By: MOMO US MD, MA, FACP, FACC, MTDD
== END 2021-03-22 12:40 | disposition home or self-care (01) ==
LOC: CATH 08:00 → SDC 10:00 → CATH 12:40
PROVIDERS: ATTEND Internal Medicine Cardiovascular Disease
DX: Z45.010 Encounter for checking and testing of cardiac pacemaker pulse generator [battery] (principal); E11.9 Type 2 diabetes mellitus without complications; D64.9 Anemia, unspecified; F17.210 Nicotine dependence, cigarettes, uncomplicated; I95.9 Hypotension, unspecified; I34.0 Nonrheumatic mitral (valve) insufficiency; I42.0 Dilated cardiomyopathy; Z79.82 Long term (current) use of aspirin; Z79.899 Other long term (current) drug therapy
CPT/HCPCS: 33263; 36415; 71045; 80053; 80061; 85027; 85610; 87081

== ENCOUNTER 2021-09-17 00:34 | Inpatient (IN) | payer MEDICARE, OTHER ==
[2021-09-17] VITALS (11 sets, daily range): BP systolic 104–164; BP diastolic 58–78
[~2021-09-17] VITALS: Ht 170 cm; Wt 66.2 kg
[~2021-09-17 00:34] MED LIST changes: +CEFU500T63 PO; -HEParin (CATH LAB) 1,000 ML IV ONE; -LIDOCAINE 1% INJ 20 ML 20 ML VIAL ONE; +METO50TA7 PO; -NS IV 1000 ML 1,000 ML IV SCH; -NS IV 1000 ML 1,000 ML ONE; -ceFAZolin INJECTION 1,000 MG ONE
[2021-09-17 01:34] LABS: BASOPHILS # (AUTO) 0.1 10^3/uL (0.0-0.1); BASOPHILS % (AUTO) 0 % (0-10); EOSINOPHILS % (AUTO) 0 % (0-10); HEMATOCRIT 51 % (35-52); LYMPHOCYTES # (AUTO) 1.2 10^3/uL (1.0-4.0); LYMPHOCYTES % (AUTO) 8 % (12-44); MEAN CORPUSCULAR HEMOGLOBIN 29 pg (25-34); MEAN CORPUSCULAR HGB CONC 32 g/dL (32-36); MEAN CORPUSCULAR VOLUME 91 fL (80-99); MEAN PLATELET VOLUME 8.1 fL (9.0-12.2); MONOCYTES # (AUTO) 1.2 10^3/uL (0.0-1.0); MONOCYTES % (AUTO) 7 % (0-12); NEUTROPHILS # (AUTO) 13.8 10^3/uL (1.8-7.8); NEUTROPHILS % (AUTO) 84 % (42-75); PLATELET COUNT 560 10^3/uL (130-400); WHITE BLOOD COUNT 16.4 10^3/uL (4.3-11.0)
[2021-09-17 01:35] LABS: BILIRUBIN,URINE NEGATIVE (NEGATIVE); CLARITY,URINE CLEAR; COLOR,URINE YELLOW; GLUCOSE, URINE (UA) NEGATIVE (NEGATIVE); KETONES,URINE NEGATIVE (NEGATIVE); LEUKOCYTE ESTERASE ,URINE NEGATIVE (NEGATIVE); NITRITE,URINE NEGATIVE (NEGATIVE); PH,URINE 5.5 (5-9); PROTEIN,URINE 2+ (NEGATIVE)
[2021-09-17 01:47] LABS: ALBUMIN 5.6 GM/DL (3.2-4.5); CHLORIDE 98 MMOL/L (98-107); POTASSIUM 3.1 MMOL/L (3.6-5.0); SODIUM 140 MMOL/L (135-145)
[2021-09-17 01:47] LABS: BACTERIA,URINE NEGATIVE /HPF; SQUAMOUS EPITHELIAL CELL,UR 0-2 /HPF
[2021-09-17 01:49] LABS: CALCIUM 11.5 MG/DL (8.5-10.1)
[2021-09-17 01:50] LABS: GLUCOSE 171 MG/DL (70-105); TOTAL PROTEIN 10.4 GM/DL (6.4-8.2)
[2021-09-17 01:51] LABS: CARBON DIOXIDE 16 MMOL/L (21-32)
[2021-09-17 01:52] LABS: BILIRUBIN,TOTAL 0.3 MG/DL (0.1-1.0)
[2021-09-17 01:53] LABS: ALKALINE PHOSPHATASE 205 U/L (40-136); CREATININE SERUM 1.22 MG/DL (0.60-1.30); GFR ESTIMATED 53
[2021-09-17 01:54] LABS: BAND NEUTROPHILS 14 %; BUN/CREATININE RATIO 13; LYMPHOCYTES % (MANUAL) 10 %; MONOCYTES % (MANUAL) 13 %; NEUTROPHILS % (MANUAL) 63 %; RBC MORPH NORMAL
[2021-09-17 01:56] LABS: ALANINE AMINOTRANSFERASE 30 U/L (0-55); MAGNESIUM 2.1 MG/DL (1.6-2.4)
[2021-09-17 01:57] LABS: LIPASE 42 U/L (8-78)
[2021-09-17] MEDS ORDERED: LACTATED RINGERS 1,000 ML IV ONE ×4 (02:30→18:57)
[2021-09-17] MEDS ORDERED: ONDANSETRON 4 MG/2 ML (SDV) Z0FRAN IVP ONE ×2 (02:45→05:15)
[2021-09-17 02:56] LABS: AMPHETAMINE SCREEN, URINE NEGATIVE (NEGATIVE); BARBITURATE SCREEN URINE NEGATIVE (NEGATIVE); BENZODIAZEPINES SCREEN URINE NEGATIVE (NEGATIVE); CANNABINOID SCREEN, URINE NEGATIVE (NEGATIVE); COCAINE SCREEN URINE NEGATIVE (NEGATIVE); METHADONE STAT NEGATIVE (NEGATIVE); METHAMPHETAMINE SCREEN URINE S NEGATIVE (NEGATIVE); OPIATE SCREEN URINE NEGATIVE (NEGATIVE); OXYCODONE STAT NEGATIVE (NEGATIVE); PROPOXYPHENE STAT NEGATIVE (NEGATIVE); TRICYCLIC ANTIDEPRESSANTS SCRE POSITIVE (NEGATIVE)
[2021-09-17] MEDS ORDERED: IOHEXOL 350 MG/ML 100 ML (OMNIPAQUE 350) VIAL IV ONE (04:30)
[2021-09-17] MEDS ORDERED: HOLD METFORMIN - RECEIVED CONTRAST 20 ML VIAL IV SCH (04:30)
[2021-09-17] MEDS ORDERED: NS 100 ML (IVPB) BAG IV ONE (04:30)
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
[2021-09-17] MEDS ORDERED: PIPERACILLIN SODIUM/TAZOBACTAM 4.5 GM in NS (IVPB) 100 ML IV ONE (05:00)
[2021-09-17] MEDS ORDERED: FAMOTIDINE 20MG/2ML IV (PEPCID) IVP ONE (05:15)
[2021-09-17 05:17] LABS: PROTHROMBIN TIME PATIENT 13.1 SEC (12.2-14.7)
[2021-09-17] MEDS ORDERED: HURRICAINE EXT TUBE (BENZOCAINE) ONE (05:44)
[2021-09-17] MEDS ORDERED: LORazepam INJ 2 MG/ML (ATIVAN) VIAL IVP ONE (06:15)
--- NOTE | 2021-09-17 06:23 | Diagnostic Imaging Report ---
PROCEDURE: CT abdomen and pelvis with contrast. TECHNIQUE: Multiple contiguous axial images were obtained through the abdomen and pelvis after administration of intravenous contrast. Auto Exposure Controls were utilized during the CT exam to meet ALARA standards for radiation dose reduction. All CT scans use one or more of the following dose optimizing techniques: automated exposure control, MA and/or KvP adjustment based on patient size and exam type or iterative reconstruction. INDICATION: Abdominal pain, nausea and vomiting. CORRELATION STUDY: 08/07/2019 FINDINGS: LOWER THORAX: Clear. LIVER: Mildly enlarged with fatty changes. GALLBLADDER: Cholecystectomy. No significant bile duct dilatation. SPLEEN: Unremarkable. PANCREAS: Unremarkable. ADRENAL GLANDS: Unremarkable. KIDNEYS: Normal configuration. No calcification or obstruction. ABDOMINAL AORTA: Unremarkable, nonaneurysmal. GASTROINTESTINAL TRACT: Stomach distended with fluid and gas. There is prominent dilated fluid-filled loops of proximal and mid small bowel with decompressed distal small bowel. Findings consistent with high degree obstruction. Transition appears to be in the mid abdomen. No significant abdominal ascites and/or free air. There is moderate stool within the colon. URINARY BLADDER: Unremarkable. REPRODUCTIVE: Unremarkable. OSSEOUS STRUCTURES: Metallic artifact from extensive hardware fixation of the left hemipelvis. No acute bony abnormality. OTHER: None. IMPRESSION: 1. Findings compatible with high degree small bowel obstruction. Transition appears to be in the mid abdomen. Initial report was provided by [employer]. Dictated by: Dictated on workstation # [id number]
--- NOTE | 2021-09-17 06:49 | Diagnostic Imaging Report ---
INDICATION: NG placement FINDINGS: An NG catheter is in the stomach along the mid body at the greater curvature. ICD device stable. No pneumothorax. The lungs clear. Impression: NG placed in good position. Clear chest. Dictated by: Dictated on workstation # [id number]
[2021-09-17] MEDS ORDERED: D5 1/2 NS W/KCL 40 MEQ/L 1,000 ML IV ONE (09:14)
[2021-09-17] MEDS ORDERED: LORazepam INJ 2 MG/ML (ATIVAN) VIAL IV PRN (10:00)
[2021-09-17] MEDS ORDERED: ONDANSETRON 4 MG/2 ML (SDV) Z0FRAN IV PRN (10:00)
[2021-09-17] MEDS: D5 1/2 NS W/KCL 40 MEQ/L 1,000 ML IV SCH ×3 (10:36→21:19)
[2021-09-17] MEDS: PIPERACILLIN SODIUM/TAZOBACTAM 4.5 GM in NS (IVPB) 100 ML IV SCH ×2 (12:04→20:08)
[2021-09-17] MEDS: fentaNYL INJ 100 MCG/2 ML AMP IVP PRN (13:05)
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
[2021-09-17 18:22] LABS: HEMATOCRIT 42 % (35-52); HEMOGLOBIN 13.3 g/dL (11.5-16.0); MEAN CORPUSCULAR HEMOGLOBIN 29 pg (25-34); MEAN CORPUSCULAR HGB CONC 32 g/dL (32-36); MEAN CORPUSCULAR VOLUME 90 fL (80-99); MEAN PLATELET VOLUME 8.3 fL (9.0-12.2); PLATELET COUNT 411 10^3/uL (130-400); WHITE BLOOD COUNT 16.5 10^3/uL (4.3-11.0)
[2021-09-17] MEDS: LORazepam INJ 2 MG/ML (ATIVAN) VIAL IVP SCH (18:23)
[2021-09-17 18:32] LABS: ALBUMIN 4.3 GM/DL (3.2-4.5); POTASSIUM 4.4 MMOL/L (3.6-5.0)
[2021-09-17 18:34] LABS: CALCIUM 9.6 MG/DL (8.5-10.1)
--- NOTE | 2021-09-17 18:34 | History & Physical-Hospitalist ---
History of Present Illness HPI/Chief Complaint Jocelyne Santos is a 51 year old female with PMH HTN, anxiety, depression, schizophrenia, history of small bowel obstruction s/p lysis of adhesions, who presented with abdominal pain. She reports having a bowel movement this morning. She has been nauseous and vomiting. She has an NG tube in now and is still nauseous. She denies fevers. She denies chest pain. She denies shortness of breath. Source: patient Exam Limitations: no limitations Date Seen 09/17/21 Time Seen by a Provider: 10:50 Attending Physician Tahir Gipson MD PCP Alvarez Rivera DO Referring Physician Date of Admission Sep 17, 2021 at 06:20 Home Medications & Allergies Home Medications Reviewed patient Home Medication Reconciliation performed by pharmacy medication reconciliations veterinary surgery technician and/or nursing. Patients Allergies have been reviewed. Allergies Allergies Coded Allergies Sulfa (Sulfonamide Antibiotics) (Verified Allergy, Unknown, 10/22/07) Past Piydksz-Ahjtwj-Akpoco Hx Patient Social History Tobacco Use?: Yes Tobacco type used: Cigarettes Smoking Status: Current Everyday Smoker Smokeless Tobacco Frequency: Current Everyday User Use of E-Cig and/or Vaping dev: No Substance use?: No Alcohol Use?: No Pt feels they are or have been: No Immunizations Up To Date Date of Influenza Vaccine: Apr 29, 2019 PED Vaccines UTD: Yes Current Status Advance Directives: No Advance Directive Location: Home Communicates: Verbally Primary Language: Par[place]ayan Preferred Spoken Language: [place]ayan Is interpretation needed?: No Implanted or Applied Medical D: Pacemaker Past Medical History Surgeries: Abdominal, Appendectomy, Bowel Surgery, Cardiac, Defibrillator, Gallbladder, Orthopedic Cardiomyopathy, Coronary Artery Disease, Heart Attack, High Cholesterol, Hypertension Bladder Infection Obstructive Bowel Fractures Anxiety, Suicide Attempts, Schizophrenia, Depression Blood Disorders: No Family Medical History No Pertinent Family Hx Review of Systems Constitutional: no symptoms reported EENTM: no symptoms reported Respiratory: no symptoms reported Cardiovascular: no symptoms reported Gastrointestinal: abdominal pain Genitourinary: no symptoms reported Musculoskeletal: no symptoms reported Skin: no symptoms reported Psychiatric/Neurological: No Symptoms Reported Physical Exam Physical Exam Vital Signs Vital Signs - First Documented 09/17/21 09/17/21 01:10 13:18 Temp 35.1 Pulse 125 Resp 22 B/P (MAP) 98/53 (68) Pulse Ox 94 O2 Delivery Room Air O2 Flow Rate 2.00 Capillary Refill : Less Than 3 Seconds Height, Weight, BMI Height: 5'6.00" Weight: 160lbs. oz. [id number]; 22.90 BMI Method:Stated General Appearance: No Apparent Distress, WD/WN HEENT: PERRL/EOMI, Pharynx Normal Neck: Normal Inspection, Supple Respiratory: Lungs Clear, No Respiratory Distress Cardiovascular: No Edema, No Murmur, Tachycardia Gastrointestinal: Soft, Abnormal Bowel Sounds (absent bowel sounds), Distended; No Guarding Extremity: Normal Inspection, No Pedal Edema Neurologic/Psychiatric: Alert, Other (flat affect) Skin: Normal Color, Warm/Dry Results Results/Procedures Labs Laboratory Tests 09/17/21 01:27 09/17/21 18:10 Patient resulted labs reviewed. Imaging: Reviewed Imaging Report Assessment/Plan Admission Diagnosis Small bowel obstruction Admission Status: Inpatient Order (span 2 midnights) Reason for Inpatient Admission: Bowel obstruction, possible surgical intervention Assessment and Plan Small bowel obstruction History of small bowel obstruction Intraabdominal adhesions DASH Lactic acidosis Surgery consulted NPO NG tube in place IV fluids Zosyn Pepcid Antiemetics Pain regimen DVT prophylaxis: held for possible surgical intervention Diagnosis/Problems Diagnosis/Problems (1) Small bowel obstruction Status: Acute (2) History of small bowel obstruction Status: Chronic (3) Intra-abdominal adhesions Status: Chronic (4) Schizophrenia Status: Chronic (5) Anxiety and depression Status: Chronic (6) HTN (hypertension) Status: Chronic TAHIR GIPSON MD Sep 17, 2021 18:34
[2021-09-17 18:35] LABS: TOTAL PROTEIN 8.2 GM/DL (6.4-8.2)
[2021-09-17 18:36] LABS: BILIRUBIN,TOTAL 0.6 MG/DL (0.1-1.0)
[2021-09-17 18:38] LABS: CREATININE SERUM 2.03 MG/DL (0.60-1.30)
[2021-09-17] MEDS: FAMOTIDINE 20MG/2ML IV (PEPCID) IV SCH (20:08)
[2021-09-18] VITALS (7 sets, daily range): BP systolic 136–192; BP diastolic 63–92
[2021-09-18] MEDS: LORazepam INJ 2 MG/ML (ATIVAN) VIAL IVP SCH ×4 (00:25→17:29)
[2021-09-18] MEDS: PIPERACILLIN SODIUM/TAZOBACTAM 4.5 GM in NS (IVPB) 100 ML IV SCH ×3 (04:23→20:50)
[2021-09-18] MEDS: D5 1/2 NS W/KCL 40 MEQ/L 1,000 ML IV SCH ×2 (04:32→11:39)
[2021-09-18 06:43] LABS: BASOPHILS % (AUTO) 0 % (0-10); EOSINOPHILS # (AUTO) 0.1 10^3/uL (0.0-0.3); EOSINOPHILS % (AUTO) 1 % (0-10); HEMATOCRIT 34 % (35-52); HEMOGLOBIN 10.7 g/dL (11.5-16.0); LYMPHOCYTES # (AUTO) 1.5 10^3/uL (1.0-4.0); LYMPHOCYTES % (AUTO) 13 % (12-44); MEAN CORPUSCULAR HEMOGLOBIN 29 pg (25-34); MEAN CORPUSCULAR HGB CONC 31 g/dL (32-36); MEAN CORPUSCULAR VOLUME 91 fL (80-99); MEAN PLATELET VOLUME 8.3 fL (9.0-12.2); MONOCYTES # (AUTO) 1.3 10^3/uL (0.0-1.0); MONOCYTES % (AUTO) 11 % (0-12); NEUTROPHILS # (AUTO) 8.4 10^3/uL (1.8-7.8); NEUTROPHILS % (AUTO) 74 % (42-75); PLATELET COUNT 324 10^3/uL (130-400); WHITE BLOOD COUNT 11.3 10^3/uL (4.3-11.0)
[2021-09-18 06:53] LABS: POTASSIUM 4.4 MMOL/L (3.6-5.0)
[2021-09-18 06:54] LABS: CALCIUM 8.7 MG/DL (8.5-10.1)
[2021-09-18 06:59] LABS: CREATININE SERUM 1.26 MG/DL (0.60-1.30)
[2021-09-18] MEDS: FAMOTIDINE 20MG/2ML IV (PEPCID) IV SCH ×2 (08:35→20:51)
[2021-09-18] MEDS: PANTOPRAZOLE 40 MG (PROTONIX) VIAL IV SCH (08:35)
--- NOTE | 2021-09-18 08:50 | Diagnostic Imaging Report ---
EXAMINATION: Abdominal series and chest radiograph HISTORY: Small bowel obstruction COMPARISON: 08/07/2019 FINDINGS: There has been a left pelvic fixation. There is excreted contrast in the urinary bladder. A paperclip projects over the upper abdomen. There are cholecystectomy clips. No free air or dilated bowel. Pacemaker is present. Gastric tube tip is in the body of the stomach. The lungs are clear. No edema. No pneumonia. No pleural effusion. No pneumothorax. Heart is normal in size. IMPRESSION: 1. Clear lungs. 2. Normal caliber bowel. Dictated by: Dictated on workstation # [id number]
--- NOTE | 2021-09-18 10:09 | Progress Note ---
Subjective Date Seen by a Provider: Sep 18, 2021 Time Seen by a Provider: 09:00 Subjective/Events-last exam doing slightly better. less abd distention. more comfortable. no bowel fxn yet. Focused Exam Lactate Level 09/17/21 15:23: Lactic Acid Level 2.82*H 09/17/21 18:10: Lactic Acid Level 2.20*H 09/18/21 06:28: Lactic Acid Level 1.31 Lactic Acid Level Laboratory Tests Test 09/18/21 06:28 Lactic Acid Level 1.31 MMOL/L (0.50-2.00) Objective Exam Vital Signs Date Time Temp Pulse Resp B/P (MAP) Pulse Ox O2 Delivery O2 Flow Rate FiO2 09/18/21 08:00 36.3 82 22 138/75 (96) 97 Nasal Cannula 2.00 09/18/21 04:18 36.6 89 20 155/85 (108) 98 Nasal Cannula 2.00 09/18/21 00:23 36.4 89 20 136/63 (87) 94 Nasal Cannula 2.00 09/17/21 20:10 Nasal Cannula 2.00 09/17/21 20:00 36.7 92 20 146/72 (96) 98 Nasal Cannula 2.00 09/17/21 19:47 36.7 94 18 159/70 (99) 97 Nasal Cannula 2.00 09/17/21 19:28 36.8 93 20 164/78 (106) 99 Nasal Cannula 2.00 09/17/21 19:09 36.8 98 20 153/72 (99) 100 Nasal Cannula 2.00 09/17/21 15:52 37.0 99 20 123/68 (86) 92 Nasal Cannula 2.00 09/17/21 13:18 36.8 104 14 126/61 (82) 92 Nasal Cannula 2.00 09/17/21 11:56 37.3 101 22 135/67 (89) 94 Room Air 09/17/21 11:44 37.0 101 16 134/64 (87) 94 Room Air 09/17/21 11:24 36.8 100 20 124/63 (83) 93 Room Air 09/17/21 11:08 36.2 100 16 122/61 (81) 95 Room Air I & O 09/18/21 07:00 Output Total 4520 ml Balance -4520 ml Capillary Refill : Less Than 3 Seconds General Appearance: No Apparent Distress HEENT: PERRL/EOMI Neck: Full Range of Motion Respiratory: Chest Non Tender, Lungs Clear, Normal Breath Sounds Cardiovascular: Regular Rate, Rhythm Gastrointestinal: soft, distended Extremity: Normal Capillary Refill Neurologic/Psychiatric: Alert, Oriented x3 Skin: Normal Color Lymphatic: No Adenopathy Results Lab Laboratory Tests 09/17/21 11:08: Lactic Acid Level 5.38*H 09/17/21 15:23: Lactic Acid Level 2.82*H 09/17/21 18:10: Lactic Acid Level 2.20*H, White Blood Count 16.5H, Red Blood Count 4.63, Hemoglobin 13.3, Hematocrit 42, Mean Corpuscular Volume 90, Mean Corpuscular Hemoglobin 29, Mean Corpuscular Hemoglobin Concent 32, Red Cell Distribution Width 15.3H, Platelet Count 411H, Mean Platelet Volume 8.3L, Sodium Level 137, Potassium Level 4.4, Chloride Level 101, Carbon Dioxide Level 17L, Anion Gap 19H , Blood Urea Nitrogen 30H, Creatinine 2.03H, Estimat Glomerular Filtration Rate 29, BUN/Creatinine Ratio 15, Glucose Level 186H, Calcium Level 9.6, Corrected Calcium 9.4, Total Bilirubin 0.6, Aspartate Amino Transf (AST/SGOT) 29, Alanine Aminotransferase (ALT/SGPT) 20, Alkaline Phosphatase 102, Total Protein 8.2, Albumin 4.3 09/18/21 06:28: Lactic Acid Level 1.31, White Blood Count 11.3H, Red Blood Count 3.75L, Hemoglobin 10.7L, Hematocrit 34L, Mean Corpuscular Volume 91, Mean Corpuscular Hemoglobin 29, Mean Corpuscular Hemoglobin Concent 31L, Red Cell Distribution Width 15.3H, Platelet Count 324, Mean Platelet Volume 8.3L, Sodium Level 138, Potassium Level 4.4, Chloride Level 109H, Carbon Dioxide Level 20L, Anion Gap 9, Blood Urea Nitrogen 27H, Creatinine 1.26, Estimat Glomerular Filtration Rate 51, BUN/Creatinine Ratio 21, Glucose Level 153H, Calcium Level 8.7, Immature Granulocyte % (Auto) 0, Neutrophils (%) (Auto) 74, Lymphocytes (%) (Auto) 13, Monocytes (%) (Auto) 11, Eosinophils (%) (Auto) 1, Basophils (%) (Auto) 0, Neutrophils # (Auto) 8.4H, Lymphocytes # (Auto) 1.5, Monocytes # (Auto) 1.3H, Eosinophils # (Auto) 0.1, Basophils # (Auto) 0.0, Immature Granulocyte # (Auto) 0.0 Assessment/Plan Assessment/Plan Assess & Plan/Chief Complaint SBO. cont IVF and NGT decompression for now. will follow serial axr and clinical exam DALILA NEGRO MD Sep 18, 2021 10:09
[2021-09-18] MEDS: BISACODYL 10 MG SUPP (DULCOLAX) PR SCH (11:40)
--- NOTE | 2021-09-18 12:10 | Progress Note - Hospitalist ---
Subjective HPI/CC On Admission Date Seen by Provider: Sep 18, 2021 Time Seen by Provider: 12:05 Jocelyne Santos is a 51 year old female with PMH HTN, anxiety, depression, schizophrenia, history of small bowel obstruction s/p lysis of adhesions, who presented with abdominal pain. She reports having a bowel movement this morning. She has been nauseous and vomiting. She has an NG tube in now and is still nauseous. She denies fevers. She denies chest pain. She denies shortness of breath. Subjective/Events-last exam She is feeling better. She denies abdominal pain and nausea. She reports passing gas. She is feeling hungry. Focused Exam Lactate Level 09/17/21 15:23: Lactic Acid Level 2.82*H 09/17/21 18:10: Lactic Acid Level 2.20*H 09/18/21 06:28: Lactic Acid Level 1.31 Objective Exam Vital Signs Vital Signs Date Time Temp Pulse Resp B/P (MAP) Pulse Ox O2 Delivery O2 Flow Rate FiO2 09/18/21 08:00 Nasal Cannula 2.00 09/18/21 08:00 36.3 82 22 138/75 (96) 97 Capillary Refill : Less Than 3 Seconds General Appearance: No Apparent Distress, Chronically ill Respiratory: Lungs Clear, No Respiratory Distress Cardiovascular: Regular Rate, Rhythm, No Murmur Gastrointestinal: Normal Bowel Sounds, Soft; No Guarding Extremity: Normal Inspection, No Pedal Edema Neurologic/Psychiatric: Alert, Other (flat affect) Skin: Normal Color, Warm/Dry Results/Procedures Lab Laboratory Tests 09/17/21 18:10 09/18/21 06:28 Patient resulted labs reviewed. Imaging: Reviewed Imaging Report Assessment/Plan Assessment and Plan Assess & Plan/Chief Complaint Small bowel obstruction History of small bowel obstruction Intraabdominal adhesions Surgery following NPO NG tube in place Decrease IV fluids Zosyn Pepcid Antiemetics Pain regimen DVT prophylaxis: held for possible surgical intervention . Lactic acidosis, resolved DASH, resolved Diagnosis/Problems Diagnosis/Problems (1) Small bowel obstruction Status: Acute (2) History of small bowel obstruction Status: Chronic (3) Intra-abdominal adhesions Status: Chronic (4) Schizophrenia Status: Chronic (5) Anxiety and depression Status: Chronic (6) HTN (hypertension) Status: Chronic TAHIR GIPSON MD Sep 18, 2021 12:10
[2021-09-18] MEDS: fentaNYL INJ 100 MCG/2 ML AMP IVP PRN (20:51)
[2021-09-19] VITALS (9 sets, daily range): BP systolic 134–196; BP diastolic 72–100
[2021-09-19] MEDS: D5 1/2 NS W/KCL 40 MEQ/L 1,000 ML IV SCH ×2 (00:47→08:59)
[2021-09-19] MEDS: LORazepam INJ 2 MG/ML (ATIVAN) VIAL IVP SCH ×3 (00:49→13:00)
[2021-09-19] MEDS: PIPERACILLIN SODIUM/TAZOBACTAM 4.5 GM in NS (IVPB) 100 ML IV SCH ×3 (04:03→20:23)
[2021-09-19] MEDS ORDERED: meTOproloL SUCCINATE 50 MG (TOPROL XL) TAB PO SCH (04:30)
[2021-09-19 05:51] LABS: BASOPHILS % (AUTO) 0 % (0-10); EOSINOPHILS # (AUTO) 0.2 10^3/uL (0.0-0.3); EOSINOPHILS % (AUTO) 2 % (0-10); HEMATOCRIT 36 % (35-52); HEMOGLOBIN 11.5 g/dL (11.5-16.0); LYMPHOCYTES # (AUTO) 1.9 10^3/uL (1.0-4.0); LYMPHOCYTES % (AUTO) 20 % (12-44); MEAN CORPUSCULAR HEMOGLOBIN 29 pg (25-34); MEAN CORPUSCULAR HGB CONC 32 g/dL (32-36); MEAN CORPUSCULAR VOLUME 91 fL (80-99); MEAN PLATELET VOLUME 8.2 fL (9.0-12.2); MONOCYTES # (AUTO) 0.7 10^3/uL (0.0-1.0); MONOCYTES % (AUTO) 8 % (0-12); NEUTROPHILS # (AUTO) 6.6 10^3/uL (1.8-7.8); NEUTROPHILS % (AUTO) 70 % (42-75); PLATELET COUNT 333 10^3/uL (130-400); WHITE BLOOD COUNT 9.6 10^3/uL (4.3-11.0)
[2021-09-19 06:05] LABS: POTASSIUM 4.3 MMOL/L (3.6-5.0)
[2021-09-19 06:06] LABS: CALCIUM 9.3 MG/DL (8.5-10.1)
[2021-09-19 06:10] LABS: CREATININE SERUM 0.75 MG/DL (0.60-1.30)
[2021-09-19] MEDS: PANTOPRAZOLE 40 MG (PROTONIX) VIAL IV SCH (08:47)
[2021-09-19] MEDS: FAMOTIDINE 20MG/2ML IV (PEPCID) IV SCH ×2 (08:47→20:22)
[2021-09-19] MEDS: fentaNYL INJ 100 MCG/2 ML AMP IVP PRN (08:52)
[2021-09-19] MEDS: BISACODYL 10 MG SUPP (DULCOLAX) PR SCH (09:00)
[2021-09-19] MEDS: meTOproloL SUCCINATE 50 MG (TOPROL XL) TAB PO SCH (09:12)
[2021-09-19] MEDS ORDERED: ACET-2267 PO (09:25)
[2021-09-19] MEDS ORDERED: hydrALAZINE (APESOLINE) 20 MG/ML VIAL IV ONE (09:30)
[2021-09-19] MEDS ORDERED: amLODIPine 10 MG (NORVASC) TAB PO NR (14:45)
[2021-09-19] MEDS ORDERED: hydrALAZINE (APESOLINE) 20 MG/ML VIAL IV PRN (14:45)
--- NOTE | 2021-09-19 15:26 | Progress Note - Hospitalist ---
Subjective HPI/CC On Admission Date Seen by Provider: Sep 19, 2021 Time Seen by Provider: 11:00 Jocelyne Santos is a 51 year old female with PMH HTN, anxiety, depression, schizophrenia, history of small bowel obstruction s/p lysis of adhesions, who presented with abdominal pain. She reports having a bowel movement this morning. She has been nauseous and vomiting. She has an NG tube in now and is still nauseous. She denies fevers. She denies chest pain. She denies shortness of breath. Subjective/Events-last exam She is tolerating clear liquids. She has had a bowel movement. She says she does not feel comfortable but is unable to elaborate. Focused Exam Lactate Level 09/17/21 15:23: Lactic Acid Level 2.82*H 09/17/21 18:10: Lactic Acid Level 2.20*H 09/18/21 06:28: Lactic Acid Level 1.31 Objective Exam Vital Signs Vital Signs Date Time Temp Pulse Resp B/P (MAP) Pulse Ox O2 Delivery O2 Flow Rate FiO2 09/19/21 12:30 86 16 184/92 (122) 97 Room Air 09/19/21 07:30 36.0 09/18/21 20:00 2.00 Capillary Refill : Less Than 3 Seconds General Appearance: No Apparent Distress, WD/WN Respiratory: Lungs Clear, No Respiratory Distress Cardiovascular: Regular Rate, Rhythm, No Murmur Gastrointestinal: Normal Bowel Sounds, Non Tender, Soft Extremity: Normal Inspection, No Pedal Edema Neurologic/Psychiatric: Alert, Other (flat affect) Skin: Normal Color, Warm/Dry Results/Procedures Lab Laboratory Tests 09/19/21 05:41 Patient resulted labs reviewed. Imaging: Reviewed Imaging Report Assessment/Plan Assessment and Plan Assess & Plan/Chief Complaint Small bowel obstruction History of small bowel obstruction Intraabdominal adhesions Surgery following Clear liquid diet Advance to general NG tube removed Stop IV fluids Zosyn Pepcid Antiemetics Pain regimen HTN Add amlodipine Continue metoprolol Schizophrenia Anxiety Depression Continue home meds DVT prophylaxis: held for possible surgical intervention . Lactic acidosis, resolved DASH, resolved Diagnosis/Problems Diagnosis/Problems (1) Small bowel obstruction Status: Acute (2) History of small bowel obstruction Status: Chronic (3) Intra-abdominal adhesions Status: Chronic (4) Schizophrenia Status: Chronic (5) Anxiety and depression Status: Chronic (6) HTN (hypertension) Status: Acute LEONELA,TAHIR M MD Sep 19, 2021 15:26
--- NOTE | 2021-09-19 15:44 | Progress Note ---
Subjective Date Seen by a Provider: Sep 19, 2021 Time Seen by a Provider: 15:00 Subjective/Events-last exam doing better. having multiple BM's. tolerating clears. much less abd distention. Focused Exam Lactate Level 09/17/21 15:23: Lactic Acid Level 2.82*H 09/17/21 18:10: Lactic Acid Level 2.20*H 09/18/21 06:28: Lactic Acid Level 1.31 Objective Exam Vital Signs Date Time Temp Pulse Resp B/P (MAP) Pulse Ox O2 Delivery O2 Flow Rate FiO2 09/19/21 12:30 86 16 184/92 (122) 97 Room Air 09/19/21 09:56 178/92 (120) 09/19/21 09:00 Room Air 09/19/21 07:30 36.0 91 18 171/100 (123) 91 Room Air 09/19/21 04:19 36.6 94 20 184/90 (121) 95 Room Air 09/19/21 00:43 36.1 94 20 173/82 (112) 93 Room Air 09/18/21 21:54 170/92 (118) 09/18/21 20:51 36.5 09/18/21 20:13 36.5 97 20 192/90 (124) 96 Room Air 09/18/21 20:00 Nasal Cannula 2.00 09/18/21 16:19 36.8 92 20 174/91 (118) 97 Room Air I & O 09/19/21 07:00 Intake Total 100 ml Output Total 250 ml Balance -150 ml Capillary Refill : Less Than 3 Seconds General Appearance: No Apparent Distress HEENT: PERRL/EOMI Neck: Full Range of Motion Respiratory: Chest Non Tender, Lungs Clear Cardiovascular: Regular Rate, Rhythm Gastrointestinal: normal bowel sounds, soft Extremity: Normal Capillary Refill Neurologic/Psychiatric: Alert, Oriented x3 Skin: Normal Color Lymphatic: No Adenopathy Results Lab Laboratory Tests 09/19/21 05:41: White Blood Count 9.6, Red Blood Count 3.97, Hemoglobin 11.5, Hematocrit 36, Mean Corpuscular Volume 91, Mean Corpuscular Hemoglobin 29, Mean Corpuscular Hemoglobin Concent 32, Red Cell Distribution Width 14.6H, Platelet Count 333, Mean Platelet Volume 8.2L, Immature Granulocyte % (Auto) 0, Neutrophils (%) (Auto) 70, Lymphocytes (%) (Auto) 20, Monocytes (%) (Auto) 8, Eosinophils (%) (Auto) 2, Basophils (%) (Auto) 0, Neutrophils # (Auto) 6.6, Lymphocytes # (Auto) 1.9, Monocytes # (Auto) 0.7, Eosinophils # (Auto) 0.2, Basophils # (Auto) 0.0, Immature Granulocyte # (Auto) 0.0, Sodium Level 139, Potassium Level 4.3, Chloride Level 107, Carbon Dioxide Level 21, Anion Gap 11, Blood Urea Nitrogen 14, Creatinine 0.75, Estimat Glomerular Filtration Rate 95, BUN/Creatinine Ratio 19, Glucose Level 107H, Calcium Level 9.3 Microbiology 09/17/21 Blood Culture - Preliminary, Resulted No growth Assessment/Plan Assessment/Plan Assess & Plan/Chief Complaint SBO. cont IVF and NGT decompression for now. will follow serial axr and clinical exam DALILA NEGRO MD Sep 19, 2021 15:44
[2021-09-19] MEDS ORDERED: LORazepam INJ 2 MG/ML (ATIVAN) VIAL IVP PRN (16:45)
--- NOTE | 2021-09-19 16:52 | Diagnostic Imaging Report ---
ABDOMEN, FLAT UPRIGHT/DECUB INDICATION: Partial small bowel obstruction. COMPARISON: 09/18/2021. TECHNIQUE: AP view of the abdomen. FINDINGS: Nonobstructive bowel gas pattern. Specifically, there are air-filled and dilated loops of small bowel or colon. Stomach is partially filled with air. Cholecystectomy clips are noted. Prior ORIF in the left hemipelvis is stable in appearance. Lung bases are clear. IMPRESSION: No radiographic features of bowel obstruction. Dictated by: Dictated on workstation # [id number]
[2021-09-19] MEDS ORDERED: VENlafaxine XR 75 MG (EFFEXOR XR) CAP PO SCH (18:00)
[2021-09-19] MEDS ORDERED: NON-FORMULARY MEDICATION 1 EA EA (Aripiprazole 5 MG) PO SCH (21:00)
[2021-09-20] MEDS: PIPERACILLIN SODIUM/TAZOBACTAM 4.5 GM in NS (IVPB) 100 ML IV SCH (03:46)
[2021-09-20 03:51] VITALS: BP 160/74
[2021-09-20 06:33] LABS: POTASSIUM 3.6 MMOL/L (3.6-5.0)
[2021-09-20 06:35] LABS: CALCIUM 9.2 MG/DL (8.5-10.1)
[2021-09-20 06:39] LABS: CREATININE SERUM 0.73 MG/DL (0.60-1.30)
[2021-09-20 07:55] VITALS: BP 151/72
[2021-09-20] MEDS ORDERED: amLODIPine 5 MG (NORVASC) TAB PO SCH (09:00)
[2021-09-20] MEDS: BISACODYL 10 MG SUPP (DULCOLAX) PR SCH (10:11)
[2021-09-20] MEDS: PANTOPRAZOLE 40 MG (PROTONIX) VIAL IV SCH (10:12)
[2021-09-20] MEDS: meTOproloL SUCCINATE 50 MG (TOPROL XL) TAB PO SCH (10:12)
[2021-09-20] MEDS: FAMOTIDINE 20MG/2ML IV (PEPCID) IV SCH (10:12)
[2021-09-20] MEDS ORDERED: AMLO-250 PO (10:18)
[2021-09-20 10:47] VITALS: BP 151/72
--- NOTE | 2021-09-20 19:10 | Discharge Summary ---
Discharge Summary Hospital Course Problems/Dx: (1) Small bowel obstruction Status: Acute (2) History of small bowel obstruction Status: Chronic (3) Intra-abdominal adhesions Status: Chronic (4) Schizophrenia Status: Chronic (5) Anxiety and depression Status: Chronic (6) HTN (hypertension) Status: Acute Hospital Course Date of Admission: Sep 17, 2021 at 06:20 Admission Diagnosis : Small bowel obstruction Family Physician/Provider: Barbara Jane DO Date of Discharge: 09/20/21 Discharge Diagnosis: Small bowel obstruction Hospital Course: Jocelyne Santos is a 51 year old female with PMH schizophrenia, anxiety, depression, HTN, history of small bowel obstruction s/p lysis of adhesions, who presented with abdominal pain and was admitted with small bowel obstruction. She had nausea and vomiting and had an NG tube placed. A CT scan showed high grade obstruction. Surgery was consulted and assisted with her care. She was made NPO and given IV fluids. Her course was complicated by DASH and lactic acidosis which resolved with fluid resuscitation. She began to regain bowel function and tolerated clears so her NG tube was removed. Her diet was advanced without issue and she had several bowel movements. She was discharged home in stable condition. She should follow up with her PCP in a week or two. Labs and Pending Lab Test: Laboratory Tests 09/20/21 06:09: Sodium Level 136, Potassium Level 3.6, Chloride Level 103, Carbon Dioxide Level 21, Anion Gap 12, Blood Urea Nitrogen 9, Creatinine 0.73, Estimat Glomerular Filtration Rate 98, BUN/Creatinine Ratio 12, Glucose Level 132H, Calcium Level 9.2 Microbiology 09/17/21 Blood Culture - Preliminary, Resulted No growth Home Meds Active Amlodipine Besylate 5 Mg Tablet 10 Mg PO DAILY 30 Days Reported Tylenol Extra Strength (Acetaminophen) 500 Mg Tablet 500 Mg PO Q8H PRN Metoprolol Succinate 50 Mg Tab.er.24h 50 Mg PO 1200 Loratadine 10 Mg Tablet 10 Mg PO DAILY PRN Venlafaxine HCl ER (Venlafaxine HCl) 75 Mg Cap.er.24h 75 Mg PO HS Trazodone HCl 150 Mg Tablet 150 Mg PO HS PRN Aripiprazole 5 Mg Tablet 5 Mg PO HS Assessment/Pt Instructions See instructions Discharge Planning: <30 minutes discharge planning Discharge Instructions Discharge Diet: No Restrictions Activity as Tolerated: Yes Consultations Surgery Discharge Physical Examination Vital Signs Vital Signs Date Time Temp Pulse Resp B/P (MAP) Pulse Ox O2 Delivery O2 Flow Rate FiO2 09/20/21 10:47 36.5 77 18 151/72 93 Room Air 09/18/21 20:00 2.00 General Appearance: No Apparent Distress, WD/WN Respiratory: Lungs Clear, No Respiratory Distress Cardiovascular: Regular Rate, Rhythm, No Murmur Gastrointestinal: Normal Bowel Sounds, Non Tender, Soft Extremity: Normal Inspection, No Pedal Edema Skin: Normal Color, Warm/Dry Neurologic/Psychiatric: Alert, Other (flat affect) Allergies: Coded Allergies: Sulfa (Sulfonamide Antibiotics) (Verified Allergy, Unknown, 10/22/07) Copy Copies To 1: BARBARA JANE DO Discharge Summary Date of Admission Sep 17, 2021 at 06:20 Date of Discharge Sep 20, 2021 at 11:45 Discharge Date: Sep 20, 2021 Discharge Time: 11:45 Admission Diagnosis Small bowel obstruction Consults/Procedures Consulations Surgery Discharge Diagnosis Small bowel obstruction (1) Small bowel obstruction Status: Acute (2) History of small bowel obstruction Status: Chronic (3) Intra-abdominal adhesions Status: Chronic (4) Schizophrenia Status: Chronic (5) Anxiety and depression Status: Chronic (6) HTN (hypertension) Status: Acute TAHIR GIPSON MD Sep 20, 2021 19:10
== END 2021-09-20 11:45 | disposition home or self-care (01) | DRG 389 ==
LOC: EDUNIT# 00:34 → ER 00:38 → 4TH 06:20
PROVIDERS: ADMIT Internal Medicine; ATTEND Internal Medicine
DX: K56.50 Intestinal adhesions [bands], unspecified as to partial versus complete obstruction (principal); I42.9 Cardiomyopathy, unspecified; N17.9 Acute kidney failure, unspecified; E87.2 Acidosis; I10 Essential (primary) hypertension; I25.2 Old myocardial infarction; F20.9 Schizophrenia, unspecified; F41.9 Anxiety disorder, unspecified; F32.A Depression, unspecified; E78.00 Pure hypercholesterolemia, unspecified; I25.10 Atherosclerotic heart disease of native coronary artery without angina pectoris; Z95.810 Presence of automatic (implantable) cardiac defibrillator; Z88.2 Allergy status to sulfonamides; F17.210 Nicotine dependence, cigarettes, uncomplicated; E87.6 Hypokalemia; D72.829 Elevated white blood cell count, unspecified
CPT/HCPCS: 36415; 71045; 74019; 74022; 74177; 80048; 80053; 80306; 81000; 83605; 83690; 83735; 85007; 85025; 85027; 85610; 85730; 87040

== ENCOUNTER 2022-04-26 13:31 | Emergency (ER) | payer MEDICARE, OTHER ==
[~2022-04-26] VITALS: Ht 177 cm; Wt 62.5 kg
[~2022-04-26 13:31] MED LIST changes: +ACET-2267 PO; +AMLO-250 PO
[2022-04-26 14:31] LABS: BASOPHILS % (AUTO) 0 % (0-10); EOSINOPHILS % (AUTO) 0 % (0-10); HEMATOCRIT 38 % (35-52); HEMOGLOBIN 12.8 g/dL (11.5-16.0); LYMPHOCYTES % (AUTO) 18 % (12-44); MEAN CORPUSCULAR HEMOGLOBIN 29 pg (25-34); MEAN CORPUSCULAR HGB CONC 33 g/dL (32-36); MEAN CORPUSCULAR VOLUME 88 fL (80-99); MONOCYTES # (AUTO) 0.6 10^3/uL (0.0-1.0); MONOCYTES % (AUTO) 5 % (0-12); NEUTROPHILS # (AUTO) 8.2 10^3/uL (1.8-7.8); NEUTROPHILS % (AUTO) 75 % (42-75); PLATELET COUNT 431 10^3/uL (130-400); WHITE BLOOD COUNT 10.9 10^3/uL (4.3-11.0)
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
[2022-04-26 14:41] LABS: ALBUMIN 4.4 GM/DL (3.2-4.5); CHLORIDE 99 MMOL/L (98-107); POTASSIUM 3.2 MMOL/L (3.6-5.0); SODIUM 143 MMOL/L (135-145)
[2022-04-26 14:42] LABS: CALCIUM 9.9 MG/DL (8.5-10.1)
[2022-04-26 14:43] LABS: GLUCOSE 115 MG/DL (70-105)
[2022-04-26 14:44] LABS: CARBON DIOXIDE 31 MMOL/L (21-32); TOTAL PROTEIN 7.6 GM/DL (6.4-8.2)
[2022-04-26 14:45] LABS: BILIRUBIN,TOTAL 0.2 MG/DL (0.1-1.0)
[2022-04-26 14:47] LABS: ALKALINE PHOSPHATASE 110 U/L (40-136); CREATININE SERUM 0.67 MG/DL (0.60-1.30); GFR ESTIMATED 104
[2022-04-26 14:48] LABS: BUN/CREATININE RATIO 16
[2022-04-26 14:50] LABS: ALANINE AMINOTRANSFERASE 14 U/L (0-55)
[2022-04-26 15:18] LABS: BILIRUBIN,URINE NEGATIVE (NEGATIVE); CLARITY,URINE CLEAR; COLOR,URINE YELLOW; GLUCOSE, URINE (UA) NEGATIVE (NEGATIVE); KETONES,URINE NEGATIVE (NEGATIVE); LEUKOCYTE ESTERASE ,URINE NEGATIVE (NEGATIVE); NITRITE,URINE NEGATIVE (NEGATIVE); PROTEIN,URINE 1+ (NEGATIVE)
[2022-04-26 15:33] LABS: BACTERIA,URINE NEGATIVE /HPF; RBC,URINE RARE /HPF; WBC,URINE RARE /HPF
[2022-04-26 15:34] LABS: AMPHETAMINE SCREEN, URINE NEGATIVE (NEGATIVE); BARBITURATE SCREEN URINE NEGATIVE (NEGATIVE); BENZODIAZEPINES SCREEN URINE NEGATIVE (NEGATIVE); CANNABINOID SCREEN, URINE NEGATIVE (NEGATIVE); COCAINE SCREEN URINE NEGATIVE (NEGATIVE); METHADONE STAT NEGATIVE (NEGATIVE); OPIATE SCREEN URINE NEGATIVE (NEGATIVE); OXYCODONE STAT NEGATIVE (NEGATIVE); PROPOXYPHENE STAT NEGATIVE (NEGATIVE); TRICYCLIC ANTIDEPRESSANTS SCRE NEGATIVE (NEGATIVE)
[2022-04-26 16:00] VITALS: BP 164/96
[2022-04-26] MEDS ORDERED: amLODIPine 10 MG (NORVASC) TAB PO ONE (16:00)
== END 2022-04-26 16:04 | disposition home or self-care (01) ==
LOC: EDUNIT# 13:31 → ER 13:34
DX: R53.81 Other malaise (principal); F17.210 Nicotine dependence, cigarettes, uncomplicated
CPT/HCPCS: 80053; 80306; 81000; 82947; 84443; 85025; 99284; G0480; 36415; 80320

== ENCOUNTER 2023-03-30 12:51 | Inpatient (IN) | payer MEDICARE, OTHER ==
[~2023-03-30] VITALS: Ht 170.1 cm; Wt 62.5 kg
[2023-03-30] MEDS ORDERED: NS IV 1000 ML 1,000 ML IV STA (13:00)
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
[2023-03-30 13:12] LABS: BASOPHILS % (AUTO) 0 % (0-10); EOSINOPHILS # (AUTO) 0.1 10^3/uL (0.0-0.3); EOSINOPHILS % (AUTO) 1 % (0-10); HEMATOCRIT 43 % (35-52); HEMOGLOBIN 13.7 g/dL (11.5-16.0); LYMPHOCYTES # (AUTO) 0.9 10^3/uL (1.0-4.0); LYMPHOCYTES % (AUTO) 4 % (12-44); MEAN CORPUSCULAR HEMOGLOBIN 29 pg (25-34); MEAN CORPUSCULAR HGB CONC 32 g/dL (32-36); MEAN CORPUSCULAR VOLUME 92 fL (80-99); MEAN PLATELET VOLUME 8.3 fL (9.0-12.2); MONOCYTES # (AUTO) 1.9 10^3/uL (0.0-1.0); MONOCYTES % (AUTO) 8 % (0-12); NEUTROPHILS # (AUTO) 21.8 10^3/uL (1.8-7.8); NEUTROPHILS % (AUTO) 88 % (42-75); PLATELET COUNT 481 10^3/uL (130-400); WHITE BLOOD COUNT 24.9 10^3/uL (4.3-11.0)
[2023-03-30] MEDS ORDERED: IOHEXOL 350 MG/ML 100 ML (OMNIPAQUE 350) VIAL IV ONE (13:15)
[2023-03-30] MEDS ORDERED: NS 100 ML (IVPB) BAG IV ONE (13:15)
[2023-03-30] MEDS ORDERED: HOLD METFORMIN - RECEIVED CONTRAST 20 ML VIAL IV SCH (13:15)
[2023-03-30] MEDS ORDERED: ONDANSETRON INJECTION 4 MG/2 ML (SDV) IVP ONE (13:15)
[2023-03-30 13:30] LABS: ALANINE AMINOTRANSFERASE 22 U/L (0-55); ALBUMIN 4.8 GM/DL (3.2-4.5); ALKALINE PHOSPHATASE 146 U/L (40-136); BILIRUBIN,TOTAL 0.4 MG/DL (0.1-1.0); BUN/CREATININE RATIO 8; CALCIUM 10.5 MG/DL (8.5-10.1); CARBON DIOXIDE 25 MMOL/L (21-32); CHLORIDE 102 MMOL/L (98-107); CREATININE SERUM 1.42 MG/DL (0.60-1.30); GFR ESTIMATED 44; GLUCOSE 160 MG/DL (70-105); LIPASE 27 U/L (8-78); POTASSIUM 3.6 MMOL/L (3.6-5.0); SODIUM 142 MMOL/L (135-145)
[2023-03-30 13:39] LABS: LYMPHOCYTES % (MANUAL) 4 %; MONOCYTES % (MANUAL) 12 %; NEUTROPHILS % (MANUAL) 84 %; RBC MORPH NORMAL
--- NOTE | 2023-03-30 14:06 | Diagnostic Imaging Report ---
PROCEDURE: CT abdomen and pelvis with contrast. TECHNIQUE: Multiple contiguous axial images were obtained through the abdomen and pelvis after administration of intravenous contrast. Auto Exposure Controls were utilized during the CT exam to meet ALARA standards for radiation dose reduction. All CT scans use one or more of the following dose optimizing techniques: automated exposure control, MA and/or KvP adjustment based on patient size and exam type or iterative reconstruction. INDICATION: Right lower quadrant pain with vomiting and diarrhea. COMPARISON: Comparison is made with prior CT from 09/17/2021. FINDINGS: The lung bases are clear. Liver demonstrates diffuse low attenuation, consistent with hepatic steatosis. No liver mass is identified. Gallbladder is surgically absent. There is no biliary ductal dilatation. The pancreas and spleen are unremarkable. No adrenal mass is identified. Kidneys are without calculi or hydronephrosis. Aorta is nonaneurysmal. There are numerous fluid-filled small and large bowel loops throughout the abdomen and pelvis. There do appear to be some mild normal-caliber small bowel loops in the right lower quadrant with transition, concerning for small bowel obstruction. Fluid is seen throughout the colon, consistent with a diarrheal state. No free fluid or fluid collection in the abdomen or pelvis is identified. The uterus and bladder are unremarkable. Postop changes to the left hemipelvis and left hip are noted. IMPRESSION: 1. Hepatic steatosis. 2. Fluid-filled small bowel which is mild to moderately dilated with transition distally, concerning for small bowel obstruction. There is also fluid-filled colon. No other significant abnormality is detected. Dictated by: Dictated on workstation # [id number]
[2023-03-30 16:05] VITALS: BP 131/64
--- NOTE | 2023-03-30 16:13 | Diagnostic Imaging Report ---
INDICATION: NG tube placement. TECHNIQUE: Frontal chest obtained at 03:47 p.m. and compared to 09/17/2021. FINDINGS: Pacemaker is unchanged. Heart and mediastinal silhouette are normal in appearance. The lungs are clear. There is no pneumothorax or pleural fluid. There is an NG tube seen with tip below the film. IMPRESSION: No acute process in the chest. NG tube is seen with tip below the film. Dictated by: Dictated on workstation # [id number]
[2023-03-30] MEDS: NS IV 1000 ML 1,000 ML IV SCH (16:32)
[2023-03-30] MEDS ORDERED: HALOPERIDOL INJECTION 5 MG/ML VIAL IM PRN (17:45)
[2023-03-30] MEDS: PANTOPRAZOLE INJECTION 40 MG VIAL IV SCH (17:54)
[2023-03-30] MEDS ORDERED: PANTOPRAZOLE INJECTION 40 MG VIAL IV SCH ×2 (18:00→21:00)
[2023-03-30] MEDS ORDERED: TRAZ150T72 PO (18:03)
[2023-03-30] MEDS ORDERED: VENL75CA93 PO (18:03)
[2023-03-30] MEDS ORDERED: LORA-1389 PO (18:03)
[2023-03-30 19:34] VITALS: BP 135/64
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
[2023-03-30 23:01] VITALS: BP 136/66
[2023-03-31] MEDS: NS IV 1000 ML 1,000 ML IV SCH ×4 (01:15→23:26)
[2023-03-31 03:44] VITALS: BP 134/68
[2023-03-31 05:42] LABS: BASOPHILS % (AUTO) 0 % (0-10); EOSINOPHILS # (AUTO) 0.2 10^3/uL (0.0-0.3); EOSINOPHILS % (AUTO) 1 % (0-10); HEMATOCRIT 37 % (35-52); HEMOGLOBIN 11.8 g/dL (11.5-16.0); LYMPHOCYTES # (AUTO) 1.7 10^3/uL (1.0-4.0); LYMPHOCYTES % (AUTO) 14 % (12-44); MEAN CORPUSCULAR HEMOGLOBIN 29 pg (25-34); MEAN CORPUSCULAR HGB CONC 32 g/dL (32-36); MEAN CORPUSCULAR VOLUME 90 fL (80-99); MEAN PLATELET VOLUME 8.4 fL (9.0-12.2); MONOCYTES # (AUTO) 1.1 10^3/uL (0.0-1.0); MONOCYTES % (AUTO) 10 % (0-12); NEUTROPHILS # (AUTO) 8.9 10^3/uL (1.8-7.8); NEUTROPHILS % (AUTO) 74 % (42-75); PLATELET COUNT 352 10^3/uL (130-400); WHITE BLOOD COUNT 11.9 10^3/uL (4.3-11.0)
[2023-03-31 06:01] LABS: CALCIUM 8.5 MG/DL (8.5-10.1); CREATININE SERUM 0.68 MG/DL (0.60-1.30); POTASSIUM 3.2 MMOL/L (3.6-5.0)
[2023-03-31] MEDS: PANTOPRAZOLE INJECTION 40 MG VIAL IV SCH (06:03)
[2023-03-31 07:23] VITALS: BP 169/77
--- NOTE | 2023-03-31 08:04 | Progress Note - Surgery ---
LEILANI CELESTE 03/31/23 0804: Subjective Date Seen by a Provider: Mar 31, 2023 Time Seen by a Provider: 07:00 Subjective/Events-last exam Patient denies pain overnight. Complains of thirst. Diarrhea. WBC count down from 24.9 to 11.9. No tenderness. Review of Systems General: No Chills, No Night Sweats HEENT: No Head Aches, No Visual Changes Pulmonary: No Dyspnea, No Cough Cardiovascular: No: Chest Pain, Palpitations Gastrointestinal: No: Nausea, Vomiting Genitourinary: No Dysuria, No Frequency Musculoskeletal: No: shoulder pain, back pain Neurological: No: Weakness, Numbness Focused Exam Lactate Level 03/30/23 13:30: Lactic Acid Level 3.05*H 03/30/23 16:43: Lactic Acid Level 1.32 03/30/23 18:46: Lactic Acid Level 0.81 Objective Exam Vital Signs Date Time Temp Pulse Resp B/P (MAP) Pulse Ox O2 Delivery O2 Flow Rate FiO2 03/31/23 07:23 36.9 95 16 169/77 (107) 92 Room Air 03/31/23 03:44 37.2 90 18 134/68 (90) 91 Room Air 03/30/23 23:01 37.7 97 18 136/66 (89) 92 Room Air 03/30/23 20:00 Room Air 03/30/23 19:34 37.5 95 18 135/64 (87) 92 Room Air 03/30/23 16:05 37.2 88 18 131/64 (86) 93 Room Air 03/30/23 15:30 36.0 87 18 122/70 97 Room Air 03/30/23 13:02 37.2 87 18 131/81 (98) 97 Room Air I & O 03/31/23 07:00 Intake Total 1000 ml Output Total 450 ml Balance 550 ml Capillary Refill : Less Than 3 Seconds General Appearance: No Apparent Distress, Thin HEENT: PERRL/EOMI, Normal ENT Inspection Neck: Full Range of Motion, Normal Inspection, Non Tender Respiratory: Chest Non Tender, No Accessory Muscle Use, No Respiratory Distress Cardiovascular: Regular Rate, Rhythm, No Edema, No JVD Gastrointestinal: normal bowel sounds, soft, no organomegaly, no pulsatile mass, tenderness (Umbilicus tenderness.) Extremity: Normal Inspection, Non Tender Neurologic/Psychiatric: Alert, Oriented x3, Other (Hx of TBI) Skin: Normal Color, Warm/Dry Lymphatic: No Adenopathy Results Lab Laboratory Tests 03/30/23 13:00: White Blood Count 24.9H, Red Blood Count 4.72, Hemoglobin 13.7, Hematocrit 43, Mean Corpuscular Volume 92, Mean Corpuscular Hemoglobin 29, Mean Corpuscular Hemoglobin Concent 32, Red Cell Distribution Width 13.2, Platelet Count 481H, Mean Platelet Volume 8.3L, Immature Granulocyte % (Auto) 1, Neutrophils (%) (Auto) 88H, Lymphocytes (%) (Auto) 4L, Monocytes (%) (Auto) 8, Eosinophils (%) (Auto) 1, Basophils (%) (Auto) 0, Neutrophils # (Auto) 21.8H, Lymphocytes # (Auto) 0.9L, Monocytes # (Auto) 1.9H, Eosinophils # (Auto) 0.1, Basophils # (Auto) 0.0, Immature Granulocyte # (Auto) 0.2H, Neutrophils % (Manual) 84, Lymphocytes % (Manual) 4, Monocytes % (Manual) 12, Blood Morphology Comment NORMAL, Sodium Level 142, Potassium Level 3.6, Chloride Level 102, Carbon Dioxide Level 25, Anion Gap 15H, Blood Urea Nitrogen 12, Creatinine 1.42H, Estimat Glomerular Filtration Rate 44, BUN/Creatinine Ratio 8, Glucose Level 160H, Calcium Level 10.5H, Corrected Calcium , Total Bilirubin 0.4, Aspartate Amino Transf (AST/SGOT) 33, Alanine Aminotransferase (ALT/SGPT) 22, Alkaline Phosphatase 146H, Total Protein 9.0H, Albumin 4.8H, Lipase 27 03/30/23 13:16: C-Reactive Protein High Sensitivity 2.28H 03/30/23 13:30: Lactic Acid Level 3.05*H 03/30/23 16:43: Lactic Acid Level 1.32 03/30/23 18:46: Lactic Acid Level 0.81 03/31/23 05:24: White Blood Count 11.9H, Red Blood Count 4.10, Hemoglobin 11.8, Hematocrit 37, Mean Corpuscular Volume 90, Mean Corpuscular Hemoglobin 29, Mean Corpuscular Hemoglobin Concent 32, Red Cell Distribution Width 13.4, Platelet Count 352, Mean Platelet Volume 8.4L, Immature Granulocyte % (Auto) 0, Neutrophils (%) (Auto) 74, Lymphocytes (%) (Auto) 14, Monocytes (%) (Auto) 10, Eosinophils (%) (Auto) 1, Basophils (%) (Auto) 0, Neutrophils # (Auto) 8.9H, Lymphocytes # (Auto) 1.7, Monocytes # (Auto) 1.1H, Eosinophils # (Auto) 0.2, Basophils # (Auto) 0.0, Immature Granulocyte # (Auto) 0.1, Sodium Level 142, Potassium Level 3.2L, Chloride Level 109H, Carbon Dioxide Level 22, Anion Gap 11, Blood Urea N itrogen 7, Creatinine 0.68, Estimat Glomerular Filtration Rate 103, BUN/Creatinine Ratio 10, Glucose Level 115H, Calcium Level 8.5 Assessment/Plan Assessment/Plan Assessment/Plan small bowel obstruction nausea and vomiting: resolved Pain: resolved leukocytosis: mild Hypokalemia NG tube IV fluid therapy NPO Zofran for nausea Protonix Medicine consult for med management SCD's for dvt prophylaxis small bowel follow through 03/31/23 DENA FISHER DO 04/01/23 0852: Subjective Subjective/Events-last exam Having some liquid stools. Wbc Down. Not having any nausea or emesis. Had small bowel demonstrating normal transit. Objective Exam General Appearance: No Apparent Distress HEENT: PERRL/EOMI, Normal ENT Inspection Neck: Normal Inspection, Non Tender Respiratory: Chest Non Tender, No Accessory Muscle Use, No Respiratory Distress Cardiovascular: Regular Rate, Rhythm, No JVD Gastrointestinal: distended, tenderness (periumbilical tenderness.) Extremity: Normal Inspection, Non Tender Neurologic/Psychiatric: Alert, Oriented x3 Skin: Normal Color, Warm/Dry Lymphatic: No Adenopathy Assessment/Plan Assessment/Plan Assessment/Plan small bowel obstruction nausea and vomiting: resolved periumbilical abdominal pain leukocytosis improving Hypokalemia NG tube clamp, still with distention and some tenderness, will clamp and hopefully remove tomorrow. IV fluid therapy NPO Zofran for nausea Protonix Medicine consult for med management SCD's for dvt prophylaxis small bowel follow through 03/31/23 normal transit Supervisory-Addendum Brief Verification & Attestation Participated in pt care: history, MDM, physical Personally performed: exam, history, MDM, supervision of care Care discussed with: Medical Student Procedures: n/a Results interpretation: Verified all documentation Verification and Attestation of Medical Student E/M Service A medical student performed and documented this service in my presence. I reviewed and verified all information documented by the medical student and made modifications to such information, when appropriate. I personally performed the physical exam and medical decision making. Dena Fisher, Mar 31, 2023,12:52 LEILANI CELESTE Mar 31, 2023 08:04 DENA FISHER DO Apr 01, 2023 08:52
[2023-03-31] MEDS ORDERED: DIATRIZOATE MEGLUM/SODIUM 37% 120 ML (GASTROGRAFIN) NG ONE (08:45)
[2023-03-31 11:05] VITALS: BP 122/65
--- NOTE | 2023-03-31 11:19 | Diagnostic Imaging Report ---
EXAM: Small bowel follow-through. EXAM DATE: 03/31/2023 COMPARISON: 08/08/2019 HISTORY: Small bowel obstruction. TECHNIQUE: Multiple radiographic images of the abdomen were obtained after administration of oral contrast. FINDINGS: Safe Expert views demonstrate mildly dilated loops of bowel within the left abdomen. A moderate amount of air and stool is present throughout the colon. Immediate images demonstrate contrast seen within the stomach. By 30 minutes, contrast is seen within the proximal small bowel in the left abdomen. At 1 hour, contrast continues to progress through the mid and distal small bowel. By 1-1/2 hours, contrast is seen within the distal small bowel and colon. IMPRESSION: 1. Normal small bowel transit time with contrast reaching the colon in 1-1/2 hours. Dictated by: Dictated on workstation # [id number]
[2023-03-31] MEDS: POTASSIUM CL 10MEQ/50ML IVPB 50 ML IV SCH ×4 (11:44→15:39)
--- NOTE | 2023-03-31 14:44 | Consultation - Hospitalist ---
WILLIAM DE SANTIAGO 03/31/23 1444: HPI History of Present Illness: HPI/Chief Complaint Jocelyne is a 52 yo female that presents with a SBO. She has a history of abdominal surgeries due to prior SBO. She has had 5 bouts of diarrhea overnight/this morning. She was having pain yesterday but is no longer in pain. She denies fever or chills. She has no tenderness. Source: patient Date Seen 03/31/23 Attending Physician Alvarez Rivera DO PCP Admitting Physician: Hamilton Fisher DO Attending Physician: Hamilton Fisher DO Referring Physician Date of Admission Mar 31, 2023 at 12:11 Home Medications & Allergies Home Medications Reviewed patient Home Medication Reconciliation performed by pharmacy medication reconciliations sterile supply technician and/or nursing. Patients Allergies have been reviewed. Allergies Allergies Coded Allergies Sulfa (Sulfonamide Antibiotics) (Verified Allergy, Unknown, 03/30/23) Past Numxakx-Vtkhay-Iierrl Hx Patient Social History Tobacco Use?: No Tobacco type used: Cigarettes Smoking Status: Current Everyday Smoker Use of E-Cig and/or Vaping dev: No Substance use?: No Alcohol Use?: Yes Alcohol type: Wine Alcohol Frequency: Once in a while Pt feels they are or have been: No Immunizations Up To Date Date of Influenza Vaccine: Apr 29, 2019 First/Initial COVID19 Vaccinat: 01/27/2021 Second COVID19 Vaccination Thomas: 01/27/2021 PED Vaccines UTD: Yes Current Status Advance Directives: No Communicates: Verbally Primary Language: Kuwaiti Preferred Spoken Language: Kuwaiti Is interpretation needed?: No Implanted or Applied Medical D: Pacemaker Past Medical History Surgeries: Abdominal (previous bowel resection ), Appendectomy, Bowel Surgery, Cardiac, Defibrillator, Gallbladder, Orthopedic Cardiomyopathy, Coronary Artery Disease, Heart Attack, High Cholesterol, Hypertension Bladder Infection Obstructive Bowel Fractures Anxiety, Suicide Attempts, Schizophrenia, Depression Blood Disorders: No Family Medical History No Pertinent Family Hx Review of Systems Constitutional: No chills, No fever Respiratory: No cough Cardiovascular: No chest pain, No edema Gastrointestinal: No abdominal pain; diarrhea; No nausea, No vomiting Genitourinary: No dysuria Physical Exam Physical Exam Vital Signs Vital Signs - First Documented 03/30/23 13:02 Temp 37.2 Pulse 87 Resp 18 B/P (MAP) 131/81 (98) Pulse Ox 97 O2 Delivery Room Air Capillary Refill : Less Than 3 Seconds Height, Weight, BMI Height: 5'6.00" Weight: 160lbs. oz. 72.166651eg; 21.60 BMI Method:Stated General Appearance: No Apparent Distress, Thin HEENT: PERRL/EOMI, Normal ENT Inspection Neck: Full Range of Motion, Normal Inspection, Non Tender Respiratory: Chest Non Tender, No Accessory Muscle Use, No Respiratory Distress Cardiovascular: Regular Rate, Rhythm, No Edema, No JVD Gastrointestinal: Distended Rectal: Deferred Back: Normal Inspection, No CVA Tenderness Extremity: Normal Inspection, Non Tender Neurologic/Psychiatric: Alert, Oriented x3, Other (Hx of TBI) Skin: Normal Color, Warm/Dry Lymphatic: No Adenopathy Results Results/Procedures Labs Laboratory Tests 03/30/23 13:00 03/31/23 05:24 Patient resulted labs reviewed. Assessment/Plan Assessment and Plan Assess & Plan/Chief Complaint SBO NG tube placed Small Bowel Follow through- normal results IV fluids NPO hypokalemia Ordered IV Magnesium Lactic Acidosis- resolved Leukocytosis- resolved TAHIR GIPSON MD 03/31/23 1611: HPI History of Present Illness: Source: patient Exam Limitations: no limitations Past [place]-Rfthlj-Bmtgat Hx Family Medical History No Pertinent Family Hx Physical Exam Physical Exam General Appearance: No Apparent Distress, WD/WN Respiratory: Lungs Clear, Normal Breath Sounds, No Respiratory Distress Cardiovascular: Regular Rate, Rhythm, No Edema, No Murmur Gastrointestinal: Normal Bowel Sounds, Non Tender, Soft Extremity: Normal Inspection, No Pedal Edema Neurologic/Psychiatric: Alert, No Motor/Sensory Deficits Skin: Normal Color, Warm/Dry Results Results/Procedures Imaging: Reviewed Imaging Report Assessment/Plan Assessment and Plan Assess & Plan/Chief Complaint Admitted to surgery with SBO. Appears to be resolving with conservative management. Leukocytosis resolving, no evidence of infection. Continue home meds. Thank you for the consult. We will round as needed. Please call the hospitalist employee operations examiner with any questions or concerns. Diagnosis/Problems Diagnosis/Problems (1) SBO (small bowel obstruction) Status: Acute (2) DASH (acute kidney injury) Status: Acute (3) Lactic acidosis Status: Acute (4) Hypokalemia Status: Acute (5) Leukocytosis Status: Acute (6) History of small bowel obstruction Status: Chronic (7) Intra-abdominal adhesions Status: Chronic (8) HTN (hypertension) Status: Chronic (9) Anxiety and depression Status: Chronic (10) Schizophrenia Status: Chronic Supervisory-Addendum Brief Verification & Attestation Participated in pt care: history, MDM, physical Personally performed: exam, history, MDM, supervision of care Care discussed with: Medical Student Procedures: n/a Results interpretation: Verified all documentation A medical student performed and documented this service in my presence. I reviewed and verified all information documented by the medical student and made modifications to such information, when appropriate. I personally performed the physical exam and medical decision making. WILLIAM DE SANTIAGO Mar 31, 2023 14:44 TAHIR GIPSON MD Mar 31, 2023 16:11
[2023-03-31 15:30] VITALS: BP 151/74
[2023-03-31] MEDS: morphine INJ 4 MG/ML 1 ML (VIAL/SYRINGE) IVP PRN ×3 (16:12→22:08)
[2023-03-31] MEDS ORDERED: NS IV 500 ML 500 ML IV PRN (16:15)
--- NOTE | 2023-03-31 17:00 | Diagnostic Imaging Report ---
EXAMINATION: Chest 1 view. HISTORY: Tube placement. COMPARISON: 03/30/2023. FINDINGS: Heart size and pulmonary vasculature are normal. The lungs are clear without consolidation, pleural effusion or pneumothorax. The osseous structures are intact. Left-sided cardiac device is unchanged. An enteric catheter is present coursing below the diaphragm. The tip crosses the midline and projects over the right mid abdomen. IMPRESSION: 1. Enteric catheter placement with the tip projecting over the distal stomach in the right mid abdomen. 2. No acute abnormality in the chest. Dictated by: Dictated on workstation # [id number]
[2023-03-31 20:00] VITALS: BP 147/70
[2023-03-31] MEDS: ARIPiprazole 10 MG TABLET PO SCH (20:04)
[2023-03-31] MEDS: traZODone 150 MG (DESYREL) TABLET PO SCH (20:05)
[2023-03-31] MEDS: LORATADINE 10 MG TABLET PO SCH (20:05)
[2023-03-31 23:28] VITALS: BP 156/72
[2023-04-01] VITALS (7 sets, daily range): BP systolic 147–190; BP diastolic 68–96
[2023-04-01 04:33] LABS: CALCIUM 8.7 MG/DL (8.5-10.1); CREATININE SERUM 0.61 MG/DL (0.60-1.30); MAGNESIUM 1.9 MG/DL (1.6-2.4); POTASSIUM 3.2 MMOL/L (3.6-5.0)
[2023-04-01] MEDS: MAGNESIUM 1 GM/100 ML IVPB 100 ML IV SCH ×3 (04:47→05:05)
[2023-04-01] MEDS: POTASSIUM CL 10MEQ/50ML IVPB 50 ML IV SCH ×9 (04:58→13:12)
[2023-04-01] MEDS: POTASSIUM CHLORIDE 20 MEQ TABLET PO SCH (04:59)
[2023-04-01] MEDS: POTASSIUM BICARB 20 MEQ effervescent TABLET PO SCH (04:59)
[2023-04-01] MEDS: morphine INJ 4 MG/ML 1 ML (VIAL/SYRINGE) IVP PRN ×2 (05:00→10:07)
[2023-04-01] MEDS: PANTOPRAZOLE INJECTION 40 MG VIAL IV SCH (05:00)
--- NOTE | 2023-04-01 07:22 | Progress Note - Surgery ---
LEILANI CELESTE 04/01/23 0721: Subjective Date Seen by a Provider: Apr 01, 2023 Time Seen by a Provider: 07:17 Subjective/Events-last exam Pt complains of mild abd pain. Distended and tympanic abd. Having bowel movements. Denies fever, chill, shortness of breath. BP is elevated and spikes occasionally up to 174/84. Nurse states pt complains more about pain during these BP elevations. Review of Systems General: No Chills, No Night Sweats HEENT: No Head Aches Pulmonary: No Dyspnea, No Cough Cardiovascular: No: Chest Pain, Palpitations Gastrointestinal: Abdominal Pain, Diarrhea; No: Nausea, Vomiting Genitourinary: No Dysuria, No Frequency Musculoskeletal: No: shoulder pain, arm pain Neurological: No: Weakness, Numbness Focused Exam Lactate Level 03/30/23 13:30: Lactic Acid Level 3.05*H 03/30/23 16:43: Lactic Acid Level 1.32 03/30/23 18:46: Lactic Acid Level 0.81 Objective Exam Vital Signs Date Time Temp Pulse Resp B/P (MAP) Pulse Ox O2 Delivery O2 Flow Rate FiO2 04/01/23 03:29 36.7 95 18 174/84 (114) 95 Room Air 03/31/23 23:28 36.8 95 18 156/72 (100) 93 Room Air 03/31/23 20:10 Room Air 03/31/23 20:00 36.8 94 14 147/70 (95) Room Air 03/31/23 15:30 37.0 104 16 151/74 (99) 99 Room Air 03/31/23 11:05 36.8 95 16 122/65 (84) 94 Room Air 03/31/23 08:00 Room Air 03/31/23 07:23 36.9 95 16 169/77 (107) 92 Room Air I & O 04/01/23 07:00 Intake Total 1600 ml Output Total 353 ml Balance 1247 ml Capillary Refill : Less Than 3 Seconds General Appearance: No Apparent Distress, Thin HEENT: PERRL/EOMI, Normal ENT Inspection Neck: Full Range of Motion, Normal Inspection, Non Tender Respiratory: Lungs Clear, Normal Breath Sounds, No Respiratory Distress Cardiovascular: Regular Rate, Rhythm, No Edema Gastrointestinal: normal bowel sounds, soft, no organomegaly, tenderness (diffuse abd tenderness. worse in RLQ) Extremity: Normal Inspection, No Pedal Edema Neurologic/Psychiatric: Alert, No Motor/Sensory Deficits Skin: Normal Color, Warm/Dry Lymphatic: No Adenopathy Results Lab Laboratory Tests 04/01/23 04:08: Sodium Level 145, Potassium Level 3.2L, Chloride Level 111H, Carbon Dioxide Level 21, Anion Gap 13, Blood Urea Nitrogen 6L, Creatinine 0.61, Estimat Taylor merular Filtration Rate 106, BUN/Creatinine Ratio 10, Glucose Level 95, Calcium Level 8.7, Magnesium Level 1.9 Assessment/Plan Assessment/Plan Assessment/Plan small bowel obstruction nausea and vomiting: resolved Pain: abd pain leukocytosis: mild 03/31/23 Hypokalemia NG tube IV fluid therapy NPO Zofran for nausea Protonix Medicine consult for med management SCD's for dvt prophylaxis small bowel follow through 03/31/23 HAMILTON FISHER DO 04/01/23 0957: Subjective Subjective/Events-last exam Mild to moderate abdominal pain. Still distended. Having some liquid stools. Ng tube in place. NPO. Denies fever sweats chills shortness of breath or chest pain. Objective Exam General Appearance: No Apparent Distress, Thin HEENT: PERRL/EOMI, Normal ENT Inspection Neck: Normal Inspection, Non Tender Respiratory: Chest Non Tender, No Accessory Muscle Use, No Respiratory Distress Cardiovascular: Regular Rate, Rhythm, No JVD Gastrointestinal: distended, tenderness (diffuse abd tenderness same as yesterday) Extremity: Normal Inspection, Non Tender Neurologic/Psychiatric: Alert, No Motor/Sensory Deficits Skin: Normal Color, Warm/Dry Lymphatic: No Adenopathy Assessment/Plan Assessment/Plan Assessment/Plan small bowel obstruction nausea and vomiting- ng tube in place Pain: abd pain leukocytosis: mild 03/31/23 Hypokalemia NG tube to liws due to distention and pain IV fluid therapy NPO Zofran for nausea Protonix Medicine consult for med management SCD's for dvt prophylaxis small bowel follow through 03/31/23 normal transit, but still with significant distention kub this am Supervisory-Addendum Brief Verification & Attestation Participated in pt care: history, MDM, physical Personally performed: exam, history, MDM, supervision of care Care discussed with: Medical Student Procedures: n/a Results interpretation: Verified all documentation Verification and Attestation of Medical Student E/M Service A medical student performed and documented this service in my presence. I reviewed and verified all information documented by the medical student and made modifications to such information, when appropriate. I personally performed the physical exam and medical decision making. Hamilton Fisher, Apr 01, 2023,09:57 LEILANI CELESTE Apr 01, 2023 07:21 HAMILTON FISHER DO Apr 01, 2023 09:57
[2023-04-01] MEDS: NS IV 1000 ML 1,000 ML IV SCH ×2 (07:49→18:05)
--- NOTE | 2023-04-01 09:22 | Diagnostic Imaging Report ---
EXAMINATION: Abdominal radiographs, single view, 2 images. DATE: April 01, 2023. CLINICAL INDICATION: 52-year-old female, abdominal distention. COMPARISON: Small bowel follow-through March 31, 2023. COMMENTS: There is contrast in the colon. There are no grossly distended gas-filled segments of bowel. The nasogastric tube is in the stomach. There is no identified free intraperitoneal air, pneumatosis, or portal venous gas. There is hardware along the left pelvis and at the level of the left proximal femur. IMPRESSION: 1. Contrast extension into the colon. 2. No grossly distended gas-filled segments of bowel. 3. The nasogastric tube is in the stomach. Dictated by: Dictated on workstation # [id number]
[2023-04-01] MEDS: VENlafaxine XR 75 MG (EFFEXOR XR) CAP PO SCH (10:11)
[2023-04-01] MEDS: amLODIPine 10 MG TABLET PO SCH (10:11)
[2023-04-01 12:03] LABS: COLOR,URINE YELLOW
[2023-04-01 12:04] LABS: BACTERIA,URINE TRACE /HPF; BILIRUBIN,URINE NEGATIVE (NEGATIVE); CLARITY,URINE CLEAR; GLUCOSE, URINE (UA) NEGATIVE (NEGATIVE); KETONES,URINE 2+ (NEGATIVE); LEUKOCYTE ESTERASE ,URINE NEGATIVE (NEGATIVE); NITRITE,URINE NEGATIVE (NEGATIVE); PROTEIN,URINE NEGATIVE (NEGATIVE); WBC,URINE RARE /HPF
[2023-04-01] MEDS: meTOprolol INJECTION 5 MG/5 ML VIAL IV SCH ×3 (13:12→23:57)
--- NOTE | 2023-04-01 13:31 | Progress Note - Hospitalist ---
WILLIAM DE SANTIAGO 04/01/23 1331: Subjective HPI/CC On Admission Date Seen by Provider: Apr 01, 2023 Jocelyne is a 52 yo female that presents with a SBO. She has a history of abdominal surgeries due to prior SBO. She has had 5 bouts of diarrhea overnight/this morning. She was having pain yesterday but is no longer in pain. She denies fever or chills. She has no tenderness. Subjective/Events-last exam Jocelyne is 52 yo F admitted with SBO. She reports she feels better but still is having some abdominal pain that she rates as a 8/10 at it's worst and a constant 5/10. The pain doesn't radiate anywhere, is diffuse but worst in the suprapubic region. She had one bowel movement over night that was loose and non-bloody. She has no fever or chills. She has no nausea, vomiting, or dysuria. She denies shortness of breath. Review of Systems General: No Chills, No Fatigue HEENT: No Head Aches Pulmonary: No Cough Cardiovascular: No: Chest Pain Gastrointestinal: Abdominal Pain, Diarrhea; No: Nausea, Vomiting, Constipation, Melena, Hematochezia Genitourinary: No Dysuria Focused Exam Lactate Level 03/30/23 13:30: Lactic Acid Level 3.05*H 03/30/23 16:43: Lactic Acid Level 1.32 03/30/23 18:46: Lactic Acid Level 0.81 Respiratory: Chest Non Tender, Lungs Clear, Normal Breath Sounds, No Accessory Muscle Use, No Respiratory Distress Cardiovascular: Regular Rate, Rhythm, No Edema, Normal Peripheral Pulses Skin: normal color Objective Exam Vital Signs Vital Signs Date Time Temp Pulse Resp B/P (MAP) Pulse Ox O2 Delivery O2 Flow Rate FiO2 04/01/23 11:47 37.0 106 16 176/96 (122) 96 Room Air Capillary Refill : Less Than 3 Seconds General Appearance: No Apparent Distress, Thin HEENT: PERRL/EOMI Neck: Normal Inspection Respiratory: Chest Non Tender, Lungs Clear, Normal Breath Sounds, No Accessory Muscle Use Cardiovascular: Regular Rate, Rhythm, No Murmur Gastrointestinal: Normal Bowel Sounds, Soft, Tenderness (diffuse) Extremity: Normal Inspection, No Pedal Edema Neurologic/Psychiatric: Alert Skin: Normal Color, Warm/Dry Results/Procedures Lab Laboratory Tests 04/01/23 04:08 Patient resulted labs reviewed. Imaging: Reviewed Imaging Report Assessment/Plan Assessment and Plan Assess & Plan/Chief Complaint SBO hypokalemia Lactic Acidosis- resolved Leukocytosis- resolving NG tube placed- surgery following for removal Small Bowel Follow through- normal results KUB- normal results IV fluids NPO Ordered IV Magnesium UA ordered Continue home meds TAHIR GIPSON MD 04/01/23 1521: Subjective HPI/CC On Admission Time Seen by Provider: 11:25 Assessment/Plan Assessment and Plan Assess & Plan/Chief Complaint SBFT and KUB without evidence of ongoing obstruction. Continues to complain of a bdominal pain, mostly suprapubic, UA negative. HTN and tachycardia, begin IV Metoprolol. Diagnosis/Problems Diagnosis/Problems (1) SBO (small bowel obstruction) Status: Acute (2) History of small bowel obstruction Status: Chronic (3) DASH (acute kidney injury) Status: Acute (4) Anxiety and depression Status: Chronic (5) Schizophrenia Status: Chronic (6) HTN (hypertension) Status: Acute Supervisory-Addendum Brief Verification & Attestation Participated in pt care: history, MDM, physical Personally performed: exam, history, MDM, supervision of care Care discussed with: Medical Student Procedures: n/a Results interpretation: Verified all documentation A medical student performed and documented this service in my presence. I reviewed and verified all information documented by the medical student and made modifications to such information, when appropriate. I personally performed the physical exam and medical decision making. WILLIAM DE SANTIAGO Apr 01, 2023 13:31 TAHIR GIPSON MD Apr 01, 2023 15:21
[2023-04-01] MEDS: ARIPiprazole 10 MG TABLET PO SCH (20:41)
[2023-04-01] MEDS: traZODone 150 MG (DESYREL) TABLET PO SCH (20:41)
[2023-04-01] MEDS: LORATADINE 10 MG TABLET PO SCH (20:42)
[2023-04-02] VITALS (7 sets, daily range): BP systolic 134–169; BP diastolic 64–96
[2023-04-02] MEDS: NS IV 1000 ML 1,000 ML IV SCH ×3 (01:38→18:20)
[2023-04-02 06:32] LABS: HEMATOCRIT 36 % (35-52); HEMOGLOBIN 11.5 g/dL (11.5-16.0); MEAN CORPUSCULAR HEMOGLOBIN 28 pg (25-34); MEAN CORPUSCULAR HGB CONC 32 g/dL (32-36); MEAN CORPUSCULAR VOLUME 89 fL (80-99); MEAN PLATELET VOLUME 8.3 fL (9.0-12.2); PLATELET COUNT 353 10^3/uL (130-400); WHITE BLOOD COUNT 10.9 10^3/uL (4.3-11.0)
[2023-04-02] MEDS: PANTOPRAZOLE INJECTION 40 MG VIAL IV SCH (06:43)
[2023-04-02] MEDS: meTOprolol INJECTION 5 MG/5 ML VIAL IV SCH ×3 (06:43→18:17)
[2023-04-02 06:51] LABS: CREATININE SERUM 0.62 MG/DL (0.60-1.30); MAGNESIUM 1.9 MG/DL (1.6-2.4); POTASSIUM 3.2 MMOL/L (3.6-5.0)
[2023-04-02] MEDS: POTASSIUM BICARB 20 MEQ effervescent TABLET PO SCH (07:16)
[2023-04-02] MEDS: POTASSIUM CL 10MEQ/50ML IVPB 50 ML IV SCH ×9 (07:16→15:14)
[2023-04-02] MEDS: POTASSIUM CHLORIDE 20 MEQ TABLET PO SCH (07:16)
[2023-04-02] MEDS: MAGNESIUM 1 GM/100 ML IVPB 100 ML IV SCH ×3 (07:16→09:11)
--- NOTE | 2023-04-02 07:26 | Progress Note - Surgery ---
LEILANI CELESTE 04/02/23 0726: Subjective Date Seen by a Provider: Apr 02, 2023 Time Seen by a Provider: 07:00 Subjective/Events-last exam No new complaints. RLQ still with some tenderness. ABD is nondistended and soft. Having bowel movements. No nausea vomiting fever. Review of Systems General: No Chills, No Night Sweats HEENT: No Head Aches, No Visual Changes Pulmonary: No Dyspnea, No Cough Cardiovascular: No: Chest Pain, Palpitations Gastrointestinal: No: Nausea, Vomiting Genitourinary: No Dysuria, No Frequency Musculoskeletal: No: shoulder pain, back pain Neurological: No: Weakness, Numbness Focused Exam Lactate Level 03/30/23 13:30: Lactic Acid Level 3.05*H 03/30/23 16:43: Lactic Acid Level 1.32 03/30/23 18:46: Lactic Acid Level 0.81 Objective Exam Vital Signs Date Time Temp Pulse Resp B/P (MAP) Pulse Ox O2 Delivery O2 Flow Rate FiO2 04/02/23 06:41 94 134/64 (87) 04/02/23 03:13 36.7 85 16 169/77 (107) 96 Room Air 04/01/23 23:49 36.8 95 16 152/68 (96) 97 Room Air 04/01/23 20:51 Room Air 04/01/23 20:04 36.8 90 16 175/81 (112) 95 Room Air 04/01/23 15:35 36.8 91 17 171/87 (115) 98 Room Air 04/01/23 11:47 37.0 106 16 176/96 (122) 96 Room Air 04/01/23 08:34 Room Air 04/01/23 08:06 36.8 92 16 147/88 (107) 95 Room Air I & O 04/02/23 07:00 Intake Total 400 ml Output Total 875 ml Balance -475 ml Capillary Refill : Less Than 3 Seconds General Appearance: No Apparent Distress, Thin HEENT: PERRL/EOMI, Normal ENT Inspection Neck: Normal Inspection, Non Tender Respiratory: Chest Non Tender, No Accessory Muscle Use Cardiovascular: Regular Rate, Rhythm, No JVD Gastrointestinal: soft, tenderness (some RLQ tenderness, less than yesterday) Extremity: Normal Inspection, No Pedal Edema Neurologic/Psychiatric: Alert, Normal Mood/Affect Skin: Normal Color, Warm/Dry Lymphatic: No Adenopathy Results Lab Laboratory Tests 04/02/23 05:50: White Blood Count 10.9, Red Blood Count 4.05, Hemoglobin 11.5, Hematocrit 36, Mean Corpuscular Volume 89, Mean Corpuscular Hemoglobin 28, Mean Corpuscular Hemoglobin Concent 32, Red Cell Distribution Width 13.2, Platelet Count 353, Mean Platelet Volume 8.3L, Sodium Level 142, Potassium Level 3.2L, Chloride Level 106, Carbon Dioxide Level 22, Anion Gap 14, Blood Urea Nitrogen 6L, Creatinine 0.62, Estimat Glomerular Filtration Rate 106, BUN/Creatinine Ratio 10, Glucose Level 84, Calcium Level 9.0, Magnesium Level 1.9 Assessment/Plan Assessment/Plan Assessment/Plan small bowel obstruction Pain: RLQ tenderness Hypokalemia NG tube clamp, check pt tolerability IV fluid therapy for hypokalemia NPO Zofran for nausea Protonix Medicine consult for med management SCD's for dvt prophylaxis small bowel follow through 03/31/23 normal transit, but still with significant distention KUB:Contrast extension into the colon. No grossly distended gas-filled segments of bowel, The nasogastric tube is in the stomach. DENA FISHER DO 04/02/23 1528: Subjective Subjective/Events-last exam Feeling better today. Having bowel function. Wanting ng tube out. Minimal pain. Denies n/v fever sweats chills shortness of breath or chest pain. Objective Exam General Appearance: No Apparent Distress, Thin HEENT: PERRL/EOMI, Normal ENT Inspection Neck: Normal Inspection, Non Tender Respiratory: Chest Non Tender, No Accessory Muscle Use Cardiovascular: Regular Rate, Rhythm, No JVD Gastrointestinal: soft, tenderness (some RLQ tenderness,minimal) Extremity: Normal Inspection Neurologic/Psychiatric: Alert, Oriented x3, Normal Mood/Affect Skin: Normal Color, Warm/Dry Lymphatic: No Adenopathy Assessment/Plan Assessment/Plan Assessment/Plan small bowel obstruction Pain: RLQ tenderness Hypokalemia NG tube pull IV fluid NPO- start clears Zofran for nausea Protonix Medicine consult for med management SCD's for dvt prophylaxis small bowel follow through 03/31/23 normal transit if tolerates clears today, advance tomorrw, home soon. Supervisory-Addendum Brief Verification & Attestation Participated in pt care: history, MDM, physical Personally performed: exam, history, MDM, supervision of care Care discussed with: Medical Student Procedures: n/a Results interpretation: Verified all documentation Verification and Attestation of Medical Student E/M Service A medical student performed and documented this service in my presence. I rev iewed and verified all information documented by the medical student and made modifications to such information, when appropriate. I personally performed the physical exam and medical decision making. Dena Fisher, Apr 02, 2023,15:28 LEILANI CELESTE Apr 02, 2023 07:26 DENA FISHER DO Apr 02, 2023 15:28
[2023-04-02] MEDS: amLODIPine 10 MG TABLET PO SCH (09:20)
[2023-04-02] MEDS: VENlafaxine XR 75 MG (EFFEXOR XR) CAP PO SCH (09:21)
[2023-04-02] MEDS: LORATADINE 10 MG TABLET PO SCH (21:00)
[2023-04-02] MEDS: traZODone 150 MG (DESYREL) TABLET PO SCH (21:00)
[2023-04-02] MEDS: ARIPiprazole 10 MG TABLET PO SCH (21:00)
[2023-04-03] MEDS: NS IV 1000 ML 1,000 ML IV SCH ×3 (01:05→11:02)
[2023-04-03] MEDS: morphine INJ 4 MG/ML 1 ML (VIAL/SYRINGE) IVP PRN (01:33)
[2023-04-03 03:14] VITALS: BP 153/81
[2023-04-03 05:58] LABS: HEMATOCRIT 35 % (35-52); HEMOGLOBIN 11.5 g/dL (11.5-16.0); MEAN CORPUSCULAR HEMOGLOBIN 29 pg (25-34); MEAN CORPUSCULAR HGB CONC 33 g/dL (32-36); MEAN CORPUSCULAR VOLUME 87 fL (80-99); MEAN PLATELET VOLUME 8.3 fL (9.0-12.2); PLATELET COUNT 362 10^3/uL (130-400)
[2023-04-03] MEDS: PANTOPRAZOLE INJECTION 40 MG VIAL IV SCH (06:08)
[2023-04-03 06:43] LABS: CALCIUM 8.6 MG/DL (8.5-10.1); CREATININE SERUM 0.61 MG/DL (0.60-1.30); MAGNESIUM 1.8 MG/DL (1.6-2.4); POTASSIUM 3.6 MMOL/L (3.6-5.0)
[2023-04-03] MEDS: MAGNESIUM 1 GM/100 ML IVPB 100 ML IV SCH ×3 (06:48→08:46)
[2023-04-03] MEDS: POTASSIUM BICARB 20 MEQ effervescent TABLET PO SCH (06:48)
[2023-04-03] MEDS: POTASSIUM CL 10MEQ/50ML IVPB 50 ML IV SCH (06:48)
[2023-04-03] MEDS: POTASSIUM CHLORIDE 20 MEQ TABLET PO SCH (06:48)
[2023-04-03 07:18] VITALS: BP 157/84
--- NOTE | 2023-04-03 07:22 | Progress Note - Surgery ---
LEILANI CELESTE 04/03/23 0722: Subjective Date Seen by a Provider: Apr 03, 2023 Time Seen by a Provider: 07:00 Subjective/Events-last exam no new complaints. sipping water. 2 bowel movements yesterday. some abd pain last night. abd is soft and nontender this morning. Review of Systems General: No Chills, No Fatigue HEENT: No Head Aches, No Visual Changes Pulmonary: No Dyspnea, No Cough Cardiovascular: No: Chest Pain, Edema Gastrointestinal: No: Nausea, Vomiting Genitourinary: No Dysuria, No Frequency Musculoskeletal: No: neck pain, shoulder pain Neurological: No: Weakness, Numbness Objective Exam Vital Signs Date Time Temp Pulse Resp B/P (MAP) Pulse Ox O2 Delivery O2 Flow Rate FiO2 04/03/23 03:14 36.7 81 18 153/81 (105) 94 Room Air 04/02/23 23:16 36.4 75 18 160/87 (111) 95 Room Air 04/02/23 20:39 Room Air 04/02/23 19:58 36.7 78 18 163/73 (103) 95 Room Air 04/02/23 16:21 36.8 80 20 140/86 (104) 96 Room Air 04/02/23 11:38 37.0 94 16 169/96 (120) 96 Room Air 04/02/23 08:15 Room Air 04/02/23 07:58 37.0 83 16 161/93 (115) 95 Room Air I & O 04/03/23 07:00 Intake Total 4590 ml Output Total 200 ml Balance 4390 ml Capillary Refill : Less Than 3 Seconds General Appearance: No Apparent Distress, Thin HEENT: PERRL/EOMI, Normal ENT Inspection Neck: Normal Inspection, Non Tender Respiratory: Chest Non Tender, No Accessory Muscle Use Cardiovascular: Regular Rate, Rhythm, No JVD Gastrointestinal: non tender, soft Extremity: Normal Inspection, No Pedal Edema Neurologic/Psychiatric: Alert, Oriented x3, Normal Mood/Affect Skin: Normal Color, Warm/Dry Lymphatic: No Adenopathy Results Lab Laboratory Tests 04/03/23 05:35: White Blood Count 12.0H, Red Blood Count 3.98, Hemoglobin 11.5, Hematocrit 35, Mean Corpuscular Volume 87, Mean Corpuscular Hemoglobin 29, Mean Corpuscular Hemoglobin Concent 33, Red Cell Distribution Width 13.0, Platelet Count 362, Mean Platelet Volume 8.3L, Sodium Level 137, Potassium Level 3.6, Chloride Level 100, Carbon Dioxide Level 26, Anion Gap 11, Blood Urea Nitrogen 4L, Creatinine 0.61, Estimat Glomerular Filtration Rate 106, BUN/Creatinine Ratio 7, Glucose Level 103, Calcium Level 8.6, Magnesium Level 1.8 Assessment/Plan Assessment/Plan Assessment/Plan small bowel obstruction Hypokalemia NG tube pulled 04/02/21 IV fluid NPO- start clears Zofran for nausea Protonix Medicine consult for med management SCD's for dvt prophylaxis small bowel follow through 03/31/23 normal transit if tolerates clears today, advance tomorrow, home soon. DENA FISHER DO 04/03/23 1545: Subjective Subjective/Events-last exam Tolerating clear liquid diet. Having bowel function. Very minimal abdominal discomfort. Wanting food and to go home. WBC slightly increased. Denies n/v fever sweats chills shortness of breath or chest pain at this time. Objective Exam General Appearance: No Apparent Distress, Thin HEENT: PERRL/EOMI, Normal ENT Inspection Neck: Normal Inspection, Non Tender Respiratory: Chest Non Tender, No Accessory Muscle Use Cardiovascular: Regular Rate, Rhythm, No JVD Gastrointestinal: non tender, soft Extremity: Normal Inspection Neurologic/Psychiatric: Alert, Oriented x3, Normal Mood/Affect Skin: Normal Color, Warm/Dry Lymphatic: No Adenopathy Assessment/Plan Assessment/Plan Assessment/Plan small bowel obstruction Hypokalemia-resolved NG tube pulled 04/02/21 IV fluid wbc slightly up, clinically improved NPO- start clears Zofran for nausea Protonix SCD's for dvt prophylaxis small bowel follow through 03/31/23 normal transit advance diet if tolerates home today. Supervisory-Addendum Brief Verification & Attestation Participated in pt care: history, MDM, physical Personally performed: exam, history, MDM, supervision of care Care discussed with: Medical Student Procedures: n/a Results interpretation: Verified all documentation Verification and Attestation of Medical Student E/M Service A medical student performed and documented this service in my presence. I reviewed and verified all information documented by the medical student and made modifications to such information, when appropriate. I personally performed the physical exam and medical decision making. Dena Fisher, Apr 03, 2023,15:45 LEILANI CELESTE Apr 03, 2023 07:22 DENA FISHER DO Apr 03, 2023 15:45
[2023-04-03] MEDS ORDERED: POTASSIUM CHLORIDE 20 MEQ TABLET PO ONE (08:00)
[2023-04-03] MEDS: VENlafaxine XR 75 MG (EFFEXOR XR) CAP PO SCH (08:46)
[2023-04-03] MEDS: amLODIPine 10 MG TABLET PO SCH (08:46)
[2023-04-03 11:30] VITALS: BP 165/64
[2023-04-03] MEDS ORDERED: AMLO-250 PO (12:14)
[2023-04-03] MEDS ORDERED: LORA10TA7 PO (12:14)
[2023-04-03] MEDS ORDERED: LORATADINE 10 MG TABLET PO PRN (12:45)
[2023-04-03] MEDS ORDERED: ACETAMINOPHEN 325 MG TABLET PO PRN (13:45)
[2023-04-03] MEDS ORDERED: ACETAMINOPHEN 325 MG TABLET ONE (13:52)
--- NOTE | 2023-04-03 15:25 | Discharge Inst-Simple/Standard ---
Discharge Inst-Standard Patient Instructions/Follow Up Plan of Care/Instructions/FU: 2 weeks Phillip 2 weeks Primary care provider. Activity as Tolerated: Yes Discharge Diet: Regular Diet Other Inst to Patient Follow up Appt: Make appointment for 2 week. Symptoms to Report: Appetite Changes, Extremity Discoloration, Numbness/Tingling, Swelling Increased, Bleeding Excessive, Eyesight Changes, Pain Increased, Urine Color Change, Constipation(Persistent), Fever over 101 degree F, Pain/Pressure in chest, Urinating Difficulty, Cough Up/Vomit Blood, Heart Beat Irreg/Pounding, Pain/Pressure in jaw, Vaginal Bleeding Increase, Cramps in feet or legs, Lightheadedness, Pain/Pressure in shoulder, Diarrhea(Persistent), Memory Changes Suddenly, Questions/Concerns, Weight gain consecutive days, Dizziness/Fainting, Nausea/Vomiting, Shortness of Breath, Weight gain over 2 pounds If questions or concerns contact your physician Or seek help at emergency department. DENA CORDOVA DO Apr 03, 2023 15:25
[2023-04-03 16:00] VITALS: BP 136/78
[2023-04-03 17:46] VITALS: BP 136/78
[2023-04-04] MEDS ORDERED: PANTOPRAZOLE 40 MG TABLET PO SCH (09:00)
[2023-04-04] MEDS ORDERED: VENlafaxine XR 75 MG (EFFEXOR XR) CAP PO SCH (21:00)
== END 2023-04-03 17:41 | disposition home or self-care (01) | DRG 389 ==
LOC: EDUNIT# 12:51 → ER 12:53 → 4TH 15:26 → OBSVTOIN 03-31 12:11
PROVIDERS: ADMIT Surgery; ATTEND Surgery
PROC: 0DH673Z Insertion of Infusion Device into Stomach, Via Natural or Artificial Opening (ICD-10-PCS; principal; 2023-03-30)
DX: K56.609 Unspecified intestinal obstruction, unspecified as to partial versus complete obstruction (principal); E87.20 Acidosis, unspecified; I42.9 Cardiomyopathy, unspecified; N17.9 Acute kidney failure, unspecified; K76.0 Fatty (change of) liver, not elsewhere classified; I10 Essential (primary) hypertension; I25.10 Atherosclerotic heart disease of native coronary artery without angina pectoris; E87.6 Hypokalemia; D72.829 Elevated white blood cell count, unspecified; E78.00 Pure hypercholesterolemia, unspecified; F41.9 Anxiety disorder, unspecified; F32.A Depression, unspecified; F20.9 Schizophrenia, unspecified; F17.210 Nicotine dependence, cigarettes, uncomplicated; Z87.820 Personal history of traumatic brain injury; Z96.649 Presence of unspecified artificial hip joint; Z95.810 Presence of automatic (implantable) cardiac defibrillator; Z79.899 Other long term (current) drug therapy; Z88.2 Allergy status to sulfonamides
CPT/HCPCS: 36415; 71045; 74018; 74177; 74250; 80048; 80053; 81000; 83036; 83605; 83690; 83735; 85007; 85025; 85027; 86141; G0378

== ENCOUNTER 2023-05-17 10:20 | Emergency (ER) | payer MEDICARE, OTHER ==
[~2023-05-17 10:20] MED LIST changes: +LORA-1389 PO
[2023-05-17] MEDS ORDERED: NS IV 500 ML 500 ML IV STA (10:39)
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
[2023-05-17 10:52] LABS: BASOPHILS % (AUTO) 0 % (0-10); EOSINOPHILS # (AUTO) 0.1 10^3/uL (0.0-0.3); EOSINOPHILS % (AUTO) 1 % (0-10); HEMATOCRIT 37 % (35-52); LYMPHOCYTES % (AUTO) 18 % (12-44); MEAN CORPUSCULAR HEMOGLOBIN 28 pg (25-34); MEAN CORPUSCULAR HGB CONC 33 g/dL (32-36); MEAN CORPUSCULAR VOLUME 86 fL (80-99); MEAN PLATELET VOLUME 7.9 fL (9.0-12.2); MONOCYTES # (AUTO) 0.5 10^3/uL (0.0-1.0); MONOCYTES % (AUTO) 5 % (0-12); NEUTROPHILS # (AUTO) 8.7 10^3/uL (1.8-7.8); NEUTROPHILS % (AUTO) 77 % (42-75); PLATELET COUNT 432 10^3/uL (130-400); WHITE BLOOD COUNT 11.4 10^3/uL (4.3-11.0)
--- NOTE | 2023-05-17 11:08 | Diagnostic Imaging Report ---
INDICATION: AMS, slurred speech TECHNIQUE: Routine non contrast-enhanced axial images were obtained from the skull base to the vertex. Auto Exposure Controls were utilized during the CT exam to meet ALARA standards for radiation dose reduction COMPARISON: None. FINDINGS: The ventricles and cortical sulci are normal in size and contour. There is no midline shift or mass-effect. No acute intra-axial hemorrhage is seen. There are no abnormal areas of increased or decreased density to suggest acute hemorrhage or edema. No extra-axial masses or collections are present. The bony calvarium is intact. The visualized paranasal sinuses show mucosal thickening involving the included visualized portions of the left maxillary sinus. The mastoid air cells are clear. IMPRESSION: 1. No acute intracranial abnormality. No CT evidence of mass, acute infarct or intracranial hemorrhage. Dictated by: Dictated on workstation # [id number]
[2023-05-17 11:12] LABS: ALBUMIN 4.2 GM/DL (3.2-4.5); CHLORIDE 102 MMOL/L (98-107); POTASSIUM 2.7 MMOL/L (3.6-5.0); SODIUM 139 MMOL/L (135-145)
[2023-05-17 11:13] LABS: CALCIUM 9.5 MG/DL (8.5-10.1)
[2023-05-17 11:14] LABS: GLUCOSE 206 MG/DL (70-105); PROTHROMBIN TIME PATIENT 13.8 SEC (12.2-14.7); TOTAL PROTEIN 7.8 GM/DL (6.4-8.2)
[2023-05-17 11:15] LABS: CARBON DIOXIDE 21 MMOL/L (21-32)
[2023-05-17 11:16] LABS: BILIRUBIN,TOTAL 0.3 MG/DL (0.1-1.0)
[2023-05-17 11:18] LABS: ALKALINE PHOSPHATASE 119 U/L (40-136); CREATININE SERUM 0.75 MG/DL (0.60-1.30); GFR ESTIMATED 95
[2023-05-17 11:19] LABS: BUN/CREATININE RATIO 15
[2023-05-17 11:21] LABS: ALANINE AMINOTRANSFERASE 19 U/L (0-55)
[2023-05-17] MEDS ORDERED: POTA-330 PO (11:35)
[2023-05-17] MEDS ORDERED: POTASSIUM CHLORIDE 20 MEQ TABLET PO ONE (11:45)
[2023-05-17 12:10] VITALS: BP 139/85
== END 2023-05-17 12:09 | disposition home or self-care (01) ==
LOC: EDUNIT# 10:20 → ER 10:21
DX: E87.6 Hypokalemia (principal); R19.7 Diarrhea, unspecified
CPT/HCPCS: 70450; 80053; 84484; 85025; 85610; 85730; 99284; G0480; 36415; 80320

== ENCOUNTER 2023-07-09 20:45 | Emergency (ER) | payer MEDICARE, OTHER ==
[~2023-07-09] VITALS: Ht 167 cm; Wt 63.0 kg
[~2023-07-09 20:45] MED LIST changes: +POTA-330 PO
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
[2023-07-09 21:20] LABS: BASOPHILS % (AUTO) 0 % (0-10); EOSINOPHILS # (AUTO) 0.1 10^3/uL (0.0-0.3); EOSINOPHILS % (AUTO) 1 % (0-10); HEMATOCRIT 40 % (35-52); HEMOGLOBIN 12.9 g/dL (11.5-16.0); LYMPHOCYTES # (AUTO) 3.1 10^3/uL (1.0-4.0); LYMPHOCYTES % (AUTO) 25 % (12-44); MEAN CORPUSCULAR HEMOGLOBIN 28 pg (25-34); MEAN CORPUSCULAR HGB CONC 32 g/dL (32-36); MEAN CORPUSCULAR VOLUME 86 fL (80-99); MEAN PLATELET VOLUME 8.1 fL (9.0-12.2); MONOCYTES # (AUTO) 0.9 10^3/uL (0.0-1.0); MONOCYTES % (AUTO) 7 % (0-12); NEUTROPHILS # (AUTO) 7.9 10^3/uL (1.8-7.8); NEUTROPHILS % (AUTO) 66 % (42-75); PLATELET COUNT 457 10^3/uL (130-400)
[2023-07-09 21:49] LABS: AMORPHOUS SEDIMENT,UR RARE AMOR URATES /LPF; BACTERIA,URINE LARGE /HPF; BILIRUBIN,URINE NEGATIVE (NEGATIVE); CLARITY,URINE SLIGHTLY CLOUDY; COLOR,URINE YELLOW; GLUCOSE, URINE (UA) NEGATIVE (NEGATIVE); KETONES,URINE NEGATIVE (NEGATIVE); LEUKOCYTE ESTERASE ,URINE TRACE (NEGATIVE); NITRITE,URINE NEGATIVE (NEGATIVE); PROTEIN,URINE 2+ (NEGATIVE); WBC,URINE 25-50 /HPF
[2023-07-09 21:50] LABS: URINE OTHER TRANS EPI 5-10 /HPF
[2023-07-09 21:51] LABS: ALANINE AMINOTRANSFERASE 26 U/L (0-55); ALBUMIN 4.5 GM/DL (3.2-4.5); ALKALINE PHOSPHATASE 116 U/L (40-136); BILIRUBIN,TOTAL 0.2 MG/DL (0.1-1.0); BUN/CREATININE RATIO 13; CALCIUM 9.6 MG/DL (8.5-10.1); CARBON DIOXIDE 24 MMOL/L (21-32); CHLORIDE 105 MMOL/L (98-107); CREATININE SERUM 0.64 MG/DL (0.60-1.30); GFR ESTIMATED 105; GLUCOSE 104 MG/DL (70-105); LIPASE 39 U/L (8-78); MAGNESIUM 2.1 MG/DL (1.6-2.4); POTASSIUM 3.4 MMOL/L (3.6-5.0); SODIUM 141 MMOL/L (135-145)
[2023-07-09 21:57] LABS: AMPHETAMINE SCREEN, URINE NEGATIVE (NEGATIVE); BARBITURATE SCREEN URINE NEGATIVE (NEGATIVE); CANNABINOID SCREEN, URINE NEGATIVE (NEGATIVE); COCAINE SCREEN URINE NEGATIVE (NEGATIVE); METHADONE STAT NEGATIVE (NEGATIVE); OPIATE SCREEN URINE NEGATIVE (NEGATIVE); OXYCODONE STAT NEGATIVE (NEGATIVE); TRICYCLIC ANTIDEPRESSANTS SCRE NEGATIVE (NEGATIVE)
[2023-07-09] MEDS ORDERED: cefTRIAXone IV/IM 1,000 MG in NS (IVPB) 50 ML 50 ML IV STA (22:04)
[2023-07-09 22:16] VITALS: BP 154/78
[2023-07-09] MEDS ORDERED: CEPH500T PO (22:20)
== END 2023-07-09 22:19 | disposition home or self-care (01) ==
LOC: EDUNIT# 20:45 → ER 20:47
DX: N39.0 Urinary tract infection, site not specified (principal); Z88.2 Allergy status to sulfonamides
CPT/HCPCS: 36415; 51702; 80053; 80306; 81000; 83690; 83735; 84484; 85025; 85610; 85730; 86141; 87088